=== PATIENT | male | born 1950 | race Caucasian/White ===

== ENCOUNTER 2016-09-04 | Outpatient (CLI) | END 2016-09-04 13:06 | disposition critical access hospital (66) | CPT/HCPCS: A0425; A0429 ==

== ENCOUNTER 2016-09-04 13:22 | Emergency (ER) | payer MEDICARE, OTHER | END 2016-09-04 15:42 | disposition home or self-care (01) | DX: R56.9 Unspecified convulsions (principal); R55 Syncope and collapse; J18.9 Pneumonia, unspecified organism; C61 Malignant neoplasm of prostate; I35.0 Nonrheumatic aortic (valve) stenosis; I48.91 Unspecified atrial fibrillation; Z79.01 Long term (current) use of anticoagulants; I10 Essential (primary) hypertension; I25.10 Atherosclerotic heart disease of native coronary artery without angina pectoris; I25.2 Old myocardial infarction; E11.51 Type 2 diabetes mellitus with diabetic peripheral angiopathy without gangrene; Z79.4 Long term (current) use of insulin; Z86.73 Personal history of transient ischemic attack (TIA), and cerebral infarction without residual deficits; Z85.828 Personal history of other malignant neoplasm of skin; Z87.891 Personal history of nicotine dependence ==

== ENCOUNTER 2016-09-12 11:40 | Outpatient (CLI) | payer MEDICARE, OTHER ==
--- NOTE | 2016-09-14 20:03 | CONSULTATION NOTE ---
DATE OF CONSULTATION: 09/12/2016 00:00:00 REQUESTING PROVIDER: Dr. Al Mensah TIME OF VISIT 11:45-1300 TOPIC: Initial palliative care consult. Thank you, Dr. Mensah, for asking palliative care consult service to be involved in the care of your p atient. I am asked to provide support for pain management, and the patient is interested in advanced care planning. BRIEF HISTORY OF PRESENT ILLNESS: This is a 66-year-old gentleman who has multiple comorbidities that affect his overall health. Most recently, he was diagnosed with metastatic prostate cancer with righ t external iliac adenopathy at 3.8 cm in size. He is currently on primary androgen suppression with t he first dose of Lupron in the fall. He is being seen by Radiation Oncology and is scheduled to have his mapping done on Thursday. Because of his large size and stature, he has to go to [facility] to have that CT scan and MRI, as well will get followup labs. The current plan is for 9 weeks of the rapy. In the context of his other comorbidities, he most recently was seen in the ER for suspected se izure activity. He is scheduled to follow up with a neurologist. There was mention of possible absenc e seizures and he also has had a history of TIAs, and most recently his aortic valve stenosis has wor sened. He is scheduled to have followup on that at some point after he finished his prostate cancer t reatment. Depending on his expected prognosis, he will either do a valve replacement or some kind of stent, per his understanding. I have been asked to see him about his pain. His pain is fairly severe. He has pretty extensive back pain. He has had chronic lower back pain. An MRI on the neck in 11/2015, showed spondylosis and sal inal stenosis without metastatic disease. He had a lumbar CT scan with contrast in October with no m etastatic disease, but does have severe DJD and most recently he had a bone scan that did not show an y obvious metastatic disease but there was some poorly defined uptake at the lumbosacral junction. Th e patient has in the past for his chronic low back pain been on methadone. He does not have a true al lergy for this, he just feels like he was over medicated and had difficulty titrating off of this. Cu rrently his pain in his back has been escalating. At worst it is 8/10, sometimes at rest it is a 1/2. It is located in the base of the skull, his right shoulder, and the area between the mid thoracic ar ea down into his sacral area, bilateral hips, and bilateral knees as well as his left ankle. The itz ent, because of his concern regarding addiction, a recent bad experience with taking 2 Vicodin at onc e, and concern about respiratory depression, rarely takes more than 1 or 2 hydrocodone a day. He does perceive his suffering as somewhat high. It does keep him from ambulating for longer distances or pe riods of time. He does ambulate with a cane. It is difficult for him to get in a comfortable position . He also does have sharp shooting pains in his lower legs as well that are rapid and fleeting, but v alejandrina severe. His pain does tend to have an element of persistency, but also intermittent when exacerba nila by ambulating, standing and twisting. His other symptom burden is that he is experiencing extreme fatigue. He rates this at an 8/10. He is feeling tired most of the time. He does have some drowsiness with this, a 5/10. It does keep him from being able to do very much and most recently with his presumed seizure activity he is unable to driv e. He does have a low-grade nausea and some occasional shortness of breath of 3/10. He denies any dep ression or anxiety, and actually perceives his quality of life is fairly good. His other comorbidities include diabetes, episodic chest pain, hyperlipidemia, hypertension, nonobstr ucting left kidney stone, history of stroke with memory loss, history of DVT on Coumadin, hypertensio n, history of gout, history of melanoma, history of asthma, aortic stenosis, severe DJD. ALLERGIES INCLUDE: 1. HORNET VENOM. 2. PENICILLINS. 3. ZETIA. 4. CONTRAST DYE. 5. DEMEROL. 6. FENOFIBRATE. 7. LIPITOR. 8. METHADONE, RELATED TO ADDICTION. 9. NIACIN. 10. PERCOCET. 11. STATINS. 12. TAPE ADHESIVE. HOME MEDICATIONS Include: 1. Acetaminophen 325 mg tabs, 2 tabs in the morning and 2 tabs at night. 2. Albuterol 1.25 mg solution q.4h. p.r.n. 3. Proventil inhaler 1-2 puffs q.4h. p.r.n. 4. Allopurinol 100 mg daily. 5. Calcium carbonate/D3 one tab BID 6. EpiPen. 7. Toujeo, inject 60-80 units. 8. Vitamin B12, 3500 mcg daily. 9. Flovent 110 mcg daily. 10. Furosemide 40 mg daily. 11. Hydrocodone/acetaminophen 5/325 mg 1 q.4h. p.r.n. 12. Ipratropium/albuterol DuoNeb 0.5/3 mg p.r.n. 13. Ketaconazole 2% cream, 1 application topically p.r.n. 14. Cozaar 25 mg daily. 15. Metformin 850 mg p.o. t.i.d. 16. Methocarbamol 750 mg b.i.d. 17. Multivitamin daily. 18. Nitroglycerin 0.4 mg p.r.n. 19. Lansoprazole 30 mg related capsule daily. 20. Lupron shot every 13 weeks. 21. Potassium citrate controlled release tablet. 22. Tamsulosin 0.4 mg daily. 23. Warfarin daily, managed by his clinic. 24. Vitamin D 5000 capsule daily. 25. Antacid as needed. CODE STATUS: CURRENTLY THE PATIENT IS A FULL CODE. WE DID INITIATE CONVERSATION AROUND POLST. PLEASE SEE PALLIATIVE CARE CONVERSATION. BRIEF SOCIAL HISTORY: The patient is to Danielle. 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 He likes to fish and rocha. Is quite disappoi nted with his correction of this new diagnosis and his limitation of back pain. He is feeling quite v ulnerable given his new diagnosis and all his medical health problems. Marital status: . Use o f alcohol rarely. Smoked previously, but quit in 1970. Has not smoked cigarettes, but smoked a pipe. FAMILY HISTORY: His father at 66 of lung cancer. His mother at 60 of breast cancer, was leyda ated for greater than a decade. He has 1 sibling, does not know his current healthcare status. He hopkins s have a daughter and a son. PERFORMANCE STATUS: The patient currently just recently had to give up driving because of his neurolo gic event. He is ambulating with a cane. He is limited by fatigue and pain in most activities. He is able to attend to his own ADLs. He does have short-term memory issues and needs constant cueing and n ote taking to remain on track. He is quite bright and verbal, alert and oriented x3, and very engaged in his healthcare and decision making. REVIEW OF SYSTEMS CONSTITUTIONAL: The patient does report night sweats, fever and chills, severe fatigue, and constant headache. EYES: He wears glasses and has glaucoma. ENT: He does experience hearing loss, bleeding gums, bad breath or bad taste, and swollen glands in h is neck. CARDIOVASCULAR: He reports heart trouble and chest pains. Has had some irregular beats. He does have intermittent swelling in his feet, ankles and hands. RESPIRATORY: Does experience shortness of breath. GASTROINTESTINAL: He has new increasing stomach pain. He is having frequent diarrhea, which is 6-8 ep isodes a day. He is unable to identify the cause though this has been somewhat long-term. GENITOURINA RY: He does have a history of kidney stones and has had some trouble urinating. He is on Flomax with quite a bit of frequency. MUSCULOSKELETAL: Reports joint pain, joint stiffness, some weakness, ongoing muscle pain and cramps, as well as difficulty in walking. SKIN: He does have rash and varicose veins. NEUROLOGIC: He has been having frequent and recurring headaches. He is to be worked up with the neuro logist for new symptoms of lightheadedness and being dizzy. He has a history of a stroke with residua l memory problems, per his records. PSYCHIATRIC: The memory loss is new for him. He has had sleep problems. ENDOCRINE: He has recently developed excessive thirst and urination, and cold intolerance. PHYSICAL EXAMINATION GENERAL APPEARANCE: He is quite large, he reports he has lost 55 pounds mostly on purpose over the year. He was at 305, and is down to 250. EYES: Slightly watery on inspection. ENT: His mucous membranes are moist. NECK: He has quite thickened stature. His trachea is midline with some swelling up just under his man dible. LUNGS: Breath sounds diminished throughout. No crackles, wheezing, or rhonchi noted. CARDIOVASCULAR: His pulse is 83. Blood pressure 136/96, respiratory rate is about 22. ABDOMEN: He has central obesity, quite round and taut. SKIN: His color is slightly pale. EXTREMITIES: He is walking with a cane. He does present with pain behaviors with any kind of shifting or turning. He did have some intermittent sharp, shooting pains that look like spasms during our vis it. PALLIATIVE CARE DISCUSSION/WHO IS PRESENT: Myself, Danielle, and the patient. The patient really wanted to talk about advanced care planning, what that was like being a do not attempt resuscitation. From h is experiences as a firepot operator and tender, he is aware of what a POLST is but not the implications regarding his current healthcare status. We did spend quite a bit of time explaining various implications conversa tion regarding this. He does want his , Danielle, to be his durable power of health environmental attorney. He exp ressed some concern regarding his daughter, Danielle, who is a EMT and being able to follow his wishes, particularly as he makes choices to focus on quality of life and considering a no code status. We did discuss as far as thresholds what defined quality of life for him as he is quite impacted currently. If he were unable to be independent or ambulatory, he is worried about being an increased burden on his in the context of how much is too much and weighing benefits and burdens of all the decision s that are coming forward for him with his multiple comorbidities. He does recognize if he were to be come more debilitated that this would be extremely difficult. He is definite no permanent dialysis. Edward hurtado herself has health problems as well and there would be concerns as far as her being able to phys ically manage him, even at his 250 pounds. He does report his daughter and her boyfriend live [facility] and have intermittent visits from their step-grandchild does bring him quite a bit of garfield and supp ort. He does express some grief and loss with his recent correction and unable to be healthy and well enough to enjoy activities that they were looking forward to. I did provide them with several tools to go home and facilitate discussions. He remains quite concerned about the roller coaster of ups and downs, as well as his health. He is concerned, rightfully so, in the future as far as his tolerating treatment and further side effects that may further debilitate him. IMPRESSION: This is a 66-year-old gentleman with metastatic prostate cancer about to embark on a fair ly lengthy course of radiation therapy. In the context of all his other comorbidities including his n ewly diagnosed aortic stenosis needing some kind of intervention as well as his diabetes, he remains at high risk for sequelae of side effects. Concern about his escalating back pain is impacting furthe r his quality of life. 1. Back pain. I did spend quite a bit of time in counseling regarding pain management. The patient's quality of life is significantly impacted by his pain. His feels like he does do better when he is taking the pain pills, but has quite a bit of resistance because he had some difficulty with metha done and addiction in the past and, in fact, losing even some memories regarding that. He is not nece ssarily allergic to methadone, he is just concerned. I suspect this would be probably the better drug for him given the neuropathic component of his pain, but currently he is opioid niave and he says he is only using 1-2 hydrocodone at the most and Tylenol through the day. We did discuss his taking bab y steps and starting with just half tab of his hydrocodone scheduled 4 times a day and will titrate u p from there. He was in agreement with this plan. I did provide him a prescription with enough to tit rate up to a full tab, so 120 tabs. We did review opioid safety and the need to lock it up in the con text of concerns. 2. Fatigue. I suspect this is multifactorial in origin. I did discuss that pain can certainly add to the fatigue, and he does have diabetes. It looks like his last glycosylated hemoglobin was actually f airly high. He is working on weight loss, trying to increase his activity but this again is impacted by his pain. He is having difficulty with sleeping. Will continue for different interventions as we m ove along in our meetings. 3. Advanced care planning. Did spend quite a bit of time in processing his grief regarding his new di agnosis, his concerns about the future and the implications regarding his health. I did provide him a copy of a POLST, [employer], and Conversation Project to assist with that conversation. He very muc h wants to get these things lined up and says that if he were to be hospitalized again that his wishe s would be followed. 4. Diarrhea. The patient is unable to attribute this to any single cause. He has had it intermission coordinator. I am concerned in that he will be getting radiation and he already has underlying diarrhea. Unclear if this is gastroparesis. Will have him add some Metamucil to slow down the transit and to get some Imod ium. I suspect they are going to need some ongoing active support for symptom management treatment. Thank you, Dr. Mensah, for asking the palliative care consult service to be involved in the care of yo ur patient. I will continue to provide ongoing support. He is, of course, going to be starting radiat ion and we will temper that accordingly and titrate his pain medications up given his concerns. Seventy-five minutes spent with greater than 50% spent in counseling regarding advanced care planning , pain management, processing grief and loss and anticipatory guidance. JOB #: [id number] EXT JOB #:[id number]
== END 2016-09-12 11:41 | disposition home or self-care (01) ==
LOC: PC 11:40
PROVIDERS: ATTEND Nurse Practitioner Adult Health
DX: C61 Malignant neoplasm of prostate (principal); R59.9 Enlarged lymph nodes, unspecified; G45.9 Transient cerebral ischemic attack, unspecified; M54.5 Low back pain; M47.9 Spondylosis, unspecified; M51.36 Other intervertebral disc degeneration, lumbar region; M25.511 Pain in right shoulder; M25.552 Pain in left hip; M25.551 Pain in right hip; M25.562 Pain in left knee; M25.561 Pain in right knee; M25.572 Pain in left ankle and joints of left foot; R11.0 Nausea; R06.02 Shortness of breath; E11.8 Type 2 diabetes mellitus with unspecified complications; Z79.4 Long term (current) use of insulin; E78.5 Hyperlipidemia, unspecified; I10 Essential (primary) hypertension; N20.0 Calculus of kidney; Z87.442 Personal history of urinary calculi; Z86.718 Personal history of other venous thrombosis and embolism; M10.9 Gout, unspecified; Z85.820 Personal history of malignant melanoma of skin; J45.909 Unspecified asthma, uncomplicated; I35.0 Nonrheumatic aortic (valve) stenosis; M19.90 Unspecified osteoarthritis, unspecified site; Z87.891 Personal history of nicotine dependence; R61 Generalized hyperhidrosis; R50.9 Fever, unspecified; R51 Headache; H91.93 Unspecified hearing loss, bilateral; R58 Hemorrhage, not elsewhere classified; R60.1 Generalized edema; R41.3 Other amnesia; E66.9 Obesity, unspecified; Z51.5 Encounter for palliative care
CPT/HCPCS: 99205

== ENCOUNTER 2016-09-17 | Outpatient (CLI) | payer MEDICARE, OTHER | END 2016-09-17 15:32 | disposition home or self-care (01) ==

== ENCOUNTER 2016-11-06 16:26 | Outpatient (CLI) | payer MEDICARE, OTHER | END 2016-11-06 16:27 | disposition home or self-care (01) | DX: Z79.899 Other long term (current) drug therapy (principal) ==

== ENCOUNTER 2016-11-20 15:00 | Outpatient (CLI) | payer MEDICARE, OTHER | END 2016-11-20 15:01 | disposition home or self-care (01) | DX: Z51.5 Encounter for palliative care (principal); R19.7 Diarrhea, unspecified; E87.6 Hypokalemia; G89.29 Other chronic pain; M54.9 Dorsalgia, unspecified; M47.9 Spondylosis, unspecified; M48.00 Spinal stenosis, site unspecified; M19.90 Unspecified osteoarthritis, unspecified site; R11.0 Nausea; R53.83 Other fatigue; F32.9 Major depressive disorder, single episode, unspecified; C61 Malignant neoplasm of prostate; C79.9 Secondary malignant neoplasm of unspecified site; N41.9 Inflammatory disease of prostate, unspecified; R35.0 Frequency of micturition; E11.9 Type 2 diabetes mellitus without complications; E66.9 Obesity, unspecified; N30.40 Irradiation cystitis without hematuria; Z79.891 Long term (current) use of opiate analgesic; Z66 Do not resuscitate ==

== ENCOUNTER 2016-11-28 10:31 | Outpatient (CLI) | payer MEDICARE, OTHER | END 2016-11-28 10:32 | disposition home or self-care (01) | DX: G40.109 Localization-related (focal) (partial) symptomatic epilepsy and epileptic syndromes with simple partial seizures, not intractable, without status epilepticus (principal) ==

== ENCOUNTER 2016-11-28 15:39 | Outpatient (CLI) | payer MEDICARE, OTHER | END 2016-11-28 15:40 | disposition home or self-care (01) | DX: Z51.5 Encounter for palliative care (principal); R19.7 Diarrhea, unspecified; E87.6 Hypokalemia; G89.29 Other chronic pain; M54.9 Dorsalgia, unspecified; R26.2 Difficulty in walking, not elsewhere classified; R53.83 Other fatigue; F32.9 Major depressive disorder, single episode, unspecified; C61 Malignant neoplasm of prostate; C79.9 Secondary malignant neoplasm of unspecified site; N30.40 Irradiation cystitis without hematuria; N41.8 Other inflammatory diseases of prostate; Z79.891 Long term (current) use of opiate analgesic; H40.9 Unspecified glaucoma; E66.9 Obesity, unspecified; Z66 Do not resuscitate ==

== ENCOUNTER 2016-12-11 11:02 | Emergency (ER) | payer MEDICARE, OTHER | END 2016-12-11 14:12 | disposition home or self-care (01) | DX: R41.82 Altered mental status, unspecified (principal); Z66 Do not resuscitate; C79.82 Secondary malignant neoplasm of genital organs; Z85.828 Personal history of other malignant neoplasm of skin; N20.0 Calculus of kidney; Z87.442 Personal history of urinary calculi; I45.2 Bifascicular block; I48.91 Unspecified atrial fibrillation; Z79.01 Long term (current) use of anticoagulants; I25.2 Old myocardial infarction; Z86.73 Personal history of transient ischemic attack (TIA), and cerebral infarction without residual deficits; I10 Essential (primary) hypertension; E11.9 Type 2 diabetes mellitus without complications; Z79.4 Long term (current) use of insulin; Z79.84 Long term (current) use of oral hypoglycemic drugs; E78.00 Pure hypercholesterolemia, unspecified; I25.10 Atherosclerotic heart disease of native coronary artery without angina pectoris; K21.9 Gastro-esophageal reflux disease without esophagitis; M19.90 Unspecified osteoarthritis, unspecified site; M10.9 Gout, unspecified; Z87.891 Personal history of nicotine dependence ==

== ENCOUNTER 2016-12-18 15:15 | Outpatient (CLI) | payer MEDICARE, OTHER | END 2016-12-18 23:59 | DX: Z51.5 Encounter for palliative care (principal); K52.0 Gastroenteritis and colitis due to radiation; Y84.2 Radiological procedure and radiotherapy as the cause of abnormal reaction of the patient, or of later complication, without mention of misadventure at the time of the procedure; E87.6 Hypokalemia; G89.29 Other chronic pain; M54.9 Dorsalgia, unspecified; R53.83 Other fatigue; F32.9 Major depressive disorder, single episode, unspecified; E11.9 Type 2 diabetes mellitus without complications; C61 Malignant neoplasm of prostate; C79.9 Secondary malignant neoplasm of unspecified site; M19.90 Unspecified osteoarthritis, unspecified site; Z66 Do not resuscitate ==

== ENCOUNTER 2017-01-15 14:04 | Outpatient (CLI) | payer MEDICARE, OTHER ==
--- NOTE | 2017-01-17 09:35 | CONSULTATION NOTE ---
DATE OF CONSULTATION: 01/15/2017 00:00:00 REQUESTING PROVIDER: Al Mensah MD. TIME OF VISIT 14:15-15:00. TOPIC: Followup palliative care consult. Thank you, Dr. Mensah, for asking the palliative care consult service to be involved in the care of yo ur patient. I am asked to provide support for pain and symptom management. BRIEF HISTORY OF PRESENT ILLNESS: This is a delightful 66-year-old gentleman who has multiple comorbi dities including but not limited to metastatic prostate cancer who recently finished up his radiation and is continuing on Lupron since 05/2016. His PSA has had a good response, it is at 0.020 mg/mL, fr ee PSA is 0.010 mg/mL and percent of PSA calculated is 50%. He had had fairly significant toxicities with his radiation therapy and had finally settled down to having regular bowel movements that were d own to a couple times a day and firm. Unfortunately, with the Lupron shot, has increased again to joel rrhea and has needed to restart the Lomotil. His frequent stools are now about 3-6 times a day and va riable, but is expecting improvement. His other presenting symptom is his back pain. This is improvin g as well. He is on methocarbamol 750 mg he is taking 1-2 b.i.d. and is starting to back off, as well as he is down to 1-2 hydrocodone as needed. Most of the back pain is lumbar and spasmatic in nature. Overall, his symptomatology, despite his little spike with the Lupron which also resulted in some fa tigue, has been doing pretty well. Of concern is he has a seizure disorder. He has been followed by Dr. Resendiz and is on lamotrigine. He has noted though some "episodes" lasting anywhere from 5 to 10 minutes where he gets increasingly co nfused and takes awhile to reorient. He does have to sit down and re-center with that. 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 They are scheduled to see his neurologist on 01/27/2017 and I did instruct his to keep track of these ep isodes or if they become more significant to follow up sooner. Along with all his other comorbidities, cardiac, respiratory, and diabetes. He is going to be seeing the fire fighter on 01/10/2017 for concerns of increased pronouncement of his murmur. He has seen Dr. Mcgill for management of his diabetes. He just recently had an A1c done today which was 6.5%. He has been actually running on the lower side. His current weight is 247.4, he is staying somewhat weight n eutral, starting to eat and drink a little bit more regularly, but still struggles with fatigue. CODE STATUS: HE IS A DO NOT ATTEMPT RESUSCITATION, HAS A POLST WITH LIMITED INTERVENTIONS, DETERMINE USE OR LIMITATION OF ANTIBIOTICS WHEN INFECTION OCCURS WITH COMFORT THE GOAL AND NO MEDICALLY ASSI STED NUTRITION. 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 BRIEF SOCIAL HISTORY: The patient and his have been for over 45 years. She herself has s ome chronic health issues. They have been very much involved in the medical community and not much ti me to branch out and develop community support. Patient is looking forward to restarting attendance a [employer] and looking at other ways to focus on something besides his current health status. PERFORMANCE STATUS: The patient is ambulating with his cane. He continues to work in his garden and o n his projects. He hates to be down, he kind of works through the pain. I would put him at a [facility] performance status at about 60%. REVIEW OF SYSTEMS: CONSTITUTIONAL: He did have an episode of fatigue after his Lupron shot. He is feeling somewhat nemesio r. He did have a rule out on his renal nodule with Dr. Mensah. 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 He continues to followup with his specialist in try ing to find some balance with his ongoing chronic health issues. EYES: He does report some changes in vision with some floaters in his left eye, some itchiness and wa teriness with allergies. He has not had an eye check for a couple years. I did encourage him to rachid vinson with an appointment given his longstanding diabetes. NECK: He has had some lymphadenopathy in his neck, this continues to improve. CARDIOVASCULAR: Denies chest pain. GI: As above. GENITOURINARY: He does have some early symptoms of retention and difficulty starting a stream. This i s quite complex for him and also has kept him from taking his second Lasix. He did just see the urolo gist, he is on Flomax. I did encourage him to followup with his urologist if he has any further quest ions. There are other medications to add for urinary retention symptoms. MUSCULOSKELETAL: He has overall degenerative joint disease in multiple joints. He is quite stiff and lots of aches and pains. He also has a history of back surgery and pain. He has worked with physical therapy before in the past and would like to reinstate this. INTEGUMENTARY: His skin is quite dry and no further perianal issues. NEUROLOGIC: He is having baseline memory problems, is quite forgetful, as noted above he has had some intermittent confusion. These do seem somewhat specific and episodic in nature, as well as some base line intermittent memory issues as well. PSYCHIATRIC: He is feeling somewhat anxious but encouraged as he is coming out of his aggressive masood tment regimen. ENDOCRINE: At this point in time he is back on his insulin of 60-70 units of the Toujeo, as well as h is metformin. He reports his blood sugars have been in a good range. This would be confirmed by his A 1c. PHYSICAL EXAMINATION: GENERAL: The patient does appear with central obesity, his face is somewhat flushed. He does have romeo e kyphosis. Eyes watery and slightly reddened on appearance. ENT: Mucous membranes are moist. NECK: Trachea midline. LUNGS: Breath sounds are clear, but diminished. CARDIOVASCULAR: His pulse was 89, O2 saturations on room air at 95%, blood pressure 140/79. Of note, he has forgotten to take his Cozaar for almost a month. His blood pressures have been running a littl e bit higher. He has restarted on this. ABDOMEN: Quite rounded and taut, hyperactive bowel tones. SKIN: His color is somewhat flushed. EXTREMITIES: He does have some lower extremity edema. He is supposed to be on 40 mg of Lasix b.i.d. a nd is currently only taking one. ALLERGIES: 1. BEES STINGS. 2. PENICILLIN. 3. ZYTIGA. 4. CONTRAST DYE. 5. DEMEROL. 6. LIPITOR. 7. METHADONE. 8. NIACIN. 9. PRAVASTATIN. 10. TAPE. CURRENT MEDICATION LIST: WE REVIEWED: 1. Albuterol HFA 108 mcg actuation inhalation 1-2 puffs q.6 hours. 2. Allopurinol 100 mg tablet daily. 3. EpiPen. 4. Toujeo 60-70 units daily. 5. Fluticasone propionate 110 mcg inhalation as needed. 6. Furosemide 40 mg 1 tab b.i.d.. 7. Lupron shot every 13 weeks. 8. Hydrocodone/acetaminophen 5/325 mg tabs 1-2 tabs every 4 hours as needed. 9. Ipratropium Albuterol 0.5 to 3 mL inhalation solution as needed. 10. Ketaconazole 2% cream p.r.n. to face as needed. 11. Losartan 50 mg daily. 12. Metformin 850 mg t.i.d. 13. Methocarbamol 750 mg tabs 1-2 b.i.d.. 14. Nitrostat 0.4 mg sublingual. 15. Potassium 10 meq. 3 tabs daily. 16. Tamsulosin 0.4 mg capsule. 17. Warfarin titrated by his primary care. 18. Ondansetron 4 mg ODT 1 q.6h. p.r.n. nausea. 19. Lomotil 2.5 mg tabs 1-2 tabs every 4 hours, not to exceed 8 tablets in 24 hours. 20. Lamotrigine 100 mg 2 times a day. PALLIATIVE CARE DISCUSSION/WHO IS PRESENT: Myself, the patient, and his , Danielle. We did discuss m vadiming forward as far as survivorship issues. He has had long-term chronic pain and now feels somewhat deconditioned. We did discuss implementing physical therapy for his chronic pain as well as conditio byron. We did contact his previous physical therapist that he has worked with before. I will send a fa x on to them for services. He does have multiple other comorbidities beside his prostate cancer and c ontinues to have multiple medical appointments. He does have a fairly pragmatic approach, though he i s getting much more frustrated with his memory issues, as well. He is hoping for a period of time whe n his symptoms are improved and he can enjoy improved quality of life. IMPRESSION: This is a 66-year-old gentleman with metastatic prostate cancer with multiple other comor bidities. He is coming off his acute treatment and is improved as far as his symptom burden. He has o ngoing chronic health problems and multiple specialists. I am concerned about his neurologic baseline . He has a followup with the neurologist at the end of the month. RECOMMENDATIONS/COUNSELING DONE: 1. Diarrhea, now secondary to Lupron injection. He is using the Lomotil appropriately. This should be improving over the next week or two. He did not add Metamucil or probiotics as instructed to prosper vaughn, but he is returning to his previous diet patterns. 2. Chronic back pain. He is able to titrate back on his methocarbamol, as well as his hydrocodone. He has both tools to continue to use, with his fluctuating pain status we will transition and prescribe physical therapy for support. 3. Fatigue. This is multifactorial in origin. He is starting to return back to some previous level of activity. This should be improved also by Physical Therapy, as well as encouraged him to branch out as far as returning to spiritual community and taking more time outside of medical appointments. 4. Diabetic management. He is working with Dr. Mcgill to titrate his diabetic medications. He has some followup with him in the next week. 5. Seasonal allergies. I did instruct him to use allergy relief Visine, if this did not improve his i rritation or conjunctivitis, he needs to followup either with his primary or an mechanical technician. I di d instruct him, though, to make an appointment given that he is a diabetic and probably does need fol lowup secondary to his high risk for retinopathy. 6. Advanced care planning. The patient is currently done with treatment, moving into morbid survivors hip mode. We did agree unless he has an exacerbation of his symptoms that we will just continue our r elationship as needed. He is certainly at high risk for the sequela of many of his different comorbid ities and is aware that his health, though improved, is still quite fragile in status overall. TIME SPENT: Forty-five minutes with greater than 50% of this done in counseling and coordination of c are, instruction to the as far as tracking episodes of confusion. If these do increase or seem m ore concerning, he is to followup sooner with the neurologist, but in the meantime, they will collect information to assist them in planning in the future. Thank you, Dr. Mensah, for asking the palliative care consult service to be involved in the care of yo ur patient. I will transition him to just as needed visits as his symptom burden is improving. JOB #: [id number] EXT JOB #:[id number]
== END 2017-01-15 14:05 | disposition home or self-care (01) ==
LOC: PC 14:04
PROVIDERS: ATTEND Nurse Practitioner Adult Health
DX: Z51.5 Encounter for palliative care (principal); R19.7 Diarrhea, unspecified; M54.9 Dorsalgia, unspecified; R53.83 Other fatigue; E11.9 Type 2 diabetes mellitus without complications; J30.2 Other seasonal allergic rhinitis; C61 Malignant neoplasm of prostate; G40.909 Epilepsy, unspecified, not intractable, without status epilepticus; R01.1 Cardiac murmur, unspecified; Z66 Do not resuscitate; H43.392 Other vitreous opacities, left eye; R33.9 Retention of urine, unspecified; M15.9 Polyosteoarthritis, unspecified; Z79.01 Long term (current) use of anticoagulants; Z79.4 Long term (current) use of insulin; Z79.51 Long term (current) use of inhaled steroids; R60.9 Edema, unspecified
CPT/HCPCS: 99215

== ENCOUNTER 2017-01-15 15:11 | Outpatient (CLI) | payer MEDICARE, OTHER | END 2017-01-15 15:12 | disposition home or self-care (01) | DX: G40.109 Localization-related (focal) (partial) symptomatic epilepsy and epileptic syndromes with simple partial seizures, not intractable, without status epilepticus (principal); E11.9 Type 2 diabetes mellitus without complications ==

== ENCOUNTER 2017-02-27 14:01 | Outpatient (CLI) | payer MEDICARE, OTHER | END 2017-02-27 14:02 | disposition home or self-care (01) | LOC: LAB 14:01 | PROVIDERS: ATTEND Specialist | DX: G40.109 Localization-related (focal) (partial) symptomatic epilepsy and epileptic syndromes with simple partial seizures, not intractable, without status epilepticus (principal) | CPT/HCPCS: 36415; 80175 ==

== ENCOUNTER 2017-04-16 09:00 | Outpatient (CLI) | payer MEDICARE, OTHER ==
[2017-04-16 14:17] LABS: BILIRUBIN,URINE NEGATIVE (NEGATIVE); PH,URINE 5.5 PH (5.0-7.5)
[2017-04-16 14:21] LABS: UA w/ MICROSCOPIC CHARGE YES
[2017-04-16 14:33] LABS: WBC,URINE 0-3 /HPF (0-3)
[2017-04-16 14:34] LABS: UR CULTURE IF IND NOT INDICATED
== END 2017-04-16 09:01 | disposition home or self-care (01) ==
LOC: LAB.R 09:00
PROVIDERS: ATTEND Nurse Practitioner Adult Health
DX: R31.9 Hematuria, unspecified (principal)
CPT/HCPCS: 81001; 81003; 87086

== ENCOUNTER 2017-04-16 13:07 | Outpatient (CLI) | payer MEDICARE, OTHER ==
--- NOTE | 2017-04-16 21:54 | PROVIDER PROGRESS NOTE ---
Palliative Care Follow Up - Referral Referring Provider: Dr. Al Mensah Time of Visit: 2960-6320 Referral setting: [facility] Referral Reason: Prostate Cancer - Information Sources Records Reviewed: Old records reviewed History obtained from: Patient, Family () Exam limitations: Clinical condition (patient with increasing memory problems) - History of Present Illness Update Brief HPI Update: This is a 66 year old gentleman who has multiple co-morbidities including met. prostate cancer post radiation, now on Lupron. He had significant toxicities as a result, still some residual diarrhea, though not needing the lomotil, and found improved as dropped his night time metformin. He had another fall 02/14, resulting in ankle injury and back pain. Currently the back pain, mostly lower lumbar is not improved, and in his estimation is worsening. He has severe spasms up to 8 times a day, his gait is quite limited relating to the pain, using the walker at all times, had been intermittent and for long distances. Is using the methocarbamol 750 mg 2-4 tabs in 24 hours, and about 2 tabs total of the vicodin. Has had more trouble tolerating ADLs showering, walking, and more difficulty with sleep and fatigue. He recently start citalorpram by PCP Dr. Mcgill for what patient describes as "panic attacks". Reports he had a "phasing out" episode this morning, and his left headache/head feels like mush. Feels like it is resolved at the time of visit. Has been actively bleeding in the last few months when urinating, some discomfort, confirms toilet "red", patient reports not all of the time. Patient reports more heartburn, stopped omeprazole somewhere along the way, and remains poor historian regarding medications. Despite strong recommendations the assist with management/ mediset has not complied. Unclear about medication adherence, patient admits his memory and cognition is worsening, this is confirmed by . Social History - Living Situation Living arrangement: At home Living Situation: With spouse/s.o., With family (daughter recently moved home, and expecting in May) Medications/Allergies - Medications Home Medications: Ambulatory Orders Medication Instructions Recorded Confirmed Allopurinol 100 mg PO DAILY 07/28/16 04/19/17 Blood Sugar Diagnostic [Glucometer 1 each MC DAILY 07/28/16 04/13/17 Strips] Epinephrine 0.3 mg INJ ONCE PRN 07/28/16 04/19/17 Furosemide 40 mg PO DAILY 07/28/16 04/19/17 Hydrocodone/Acetaminophen 5 - 325 mg PO Q4H PRN 07/28/16 04/19/17 [Hydrocodone-APAP 5-300] Methocarbamol 750 mg PO BID PRN 07/28/16 04/19/17 Nitroglycerin 0.4 mg SL ONCE PRN 07/28/16 04/19/17 Tamsulosin [Flomax] 0.4 mg PO DAILY 07/28/16 04/19/17 Warfarin [Coumadin] 10 mg PO DAILY 07/28/16 04/19/17 metFORMIN [Glucophage] 850 mg PO BID 07/28/16 04/19/17 Diphenoxylate/Atropine [Lomotil] 1 - 2 each PO ONCE PRN 12/11/16 04/19/17 Lansoprazole [Prevacid] 30 mg PO DAILY 12/11/16 04/19/17 Losartan Potassium 50 mg PO DAILY 12/11/16 04/19/17 Ondansetron [Ondansetron Odt] 4 mg PO Q6H PRN 12/11/16 04/19/17 lamoTRIgine [LaMICtal] 200 mg PO BID 12/11/16 04/19/17 Escitalopram [Lexapro] 10 mg PO DAILY 04/19/17 04/19/17 Insulin Glargine,Hum.rec.anlog 60 - 80 unit INJ DAILY 04/19/17 04/19/17 [Toujeo Solostar] Potassium Chloride [Klor-Con M20] 20 meq PO TID 04/19/17 04/19/17 - Allergies Allergies/Adverse Reactions: Allergies Allergy/AdvReac Type Severity Reaction Status Date / Time atorvastatin calcium * Allergy Hallucinati Verified 08/08/15 19:22 [From Lipitor] ons ezetimibe [From Zetia] Allergy Respiratory Verified 08/08/15 19:22 Iodinated Contrast- Oral and Allergy Hives Verified 08/08/15 19:22 IV Dye [Iodinated Contrast Media - IV Dye] niacin Allergy Rash Verified 08/08/15 19:22 Penicillins Allergy Respiratory Verified 08/08/15 19:22 Tihvdol-Rhp-Ovb Reductase Allergy Unknown Verified 08/08/15 19:22 Inhibitor venom-honey bee Allergy Respiratory Verified 08/08/15 19:22 [bee venom (honey bee)] Review of Systems - Constitutional Constitutional: reports: Fatigue, Night sweats. denies: Fever, Chills - Eyes Eyes: reports: Vision loss - Ears, Nose & Throat Ears, Nose & Throat: reports: Hearing loss - Cardiovascular Cariovascular: reports: Exertional dyspnea, Decr. exercise tolerance - Respiratory Respiratory: reports: SOB with exertion - Gastrointestinal Gastrointestinal: reports: Diarrhea (improved after stopped the metformin at night; going 2-3 times a day loose but not needing lomotil) - Genitourinary Genitourinary: reports: Dysuria ( reports odor is strong;), Frequency, Urgency, Hematuria (reports now for almost a month; intermittent but more so enough to make toilet bowel red), Incontinence - Musculoskeletal Musculoskeletal: reports: Muscle pain, Back pain, Muscle aches, Limited range of motion, Muscle weakness, Other (reports fall a few weeks ago has had worsening back pain and spasms despite pain medication) - Integumentary Integumentary: reports: Dryness - Neurological Neurological: reports: General weakness, Headache, Dizziness, Memory problems ( worsening STM; intermittent confusion), Abnormal gait (using walker), Seizures ( reports am had "brain mush"; told by PCP having panic attacks), Incoordination - Psychiatric Psychiatric: reports: Depression (improved on Celexa), Anxiety - Endocrine Endocrine: reports: Intolerance to heat (hot flashes with Lupron shot), Other ( diabetes: blood sugars running 120-150;) - Hematologic/Lymphatic Hematologic/Lymphatic: reports: Anemia - All Other Systems All Other Systems: reports: Reviewed and negative Physical Examination - Vital Signs Pulse Rate: 83 Respiratory Rate: 20 O2 Saturation: 94 Blood Pressure: 123/79 - Physical Exam General Appearance: positive: Mild distress, Lethargic Eyes Bilateral: positive: Normal inspection ENT: positive: No signs of dehydration Neck: positive: No JVD, Trachea midline, Stiff neck Respiratory: positive: Other (diminished throughout) Cardiovascular: positive: Regular rate & rhythm, Systolic murmur Abdomen: positive: Tenderness, Guarding, Other (distended and taut norm; but tender midline and right upper quadrant with palpation) Skin: positive: Dryness, Other (face flushed) Extremities: positive: No pedal edema, Other (significant limitations; using walker with difficulty walking; presented with several severe spasms during visit lasting about 30-40 seconds) Neurologic/Psychiatric: positive: Oriented x3, Weakness, Sensory loss Palliative Care - POLST Patient has POLST: Yes POLST Status: DNR, Limited Interventions Pain: Pain worsening, Location (since fall back pain has been escalting, no improvement; having more spasms. Using 1/2 vicodin am/noon and 1 full one at night. Using flexeril QID) Drowsiness: Moderate (4-6) (very fatigued and drowsy, nods off to sleep easily) Nausea: None Anxiety: Mild (1-3) Dyspnea: Moderate (4-6) Anorexia: Mild (1-3) Insomnia: Sleeps well (recommended by Dr. Mensah to consider sleep study; patient admament would never where CPAP so not going to follow up) Constipation: No Feelings of wellbeing/Perceived Quality of Life: Worsening (impacted by STM/ cognitive changes and worsening fatigue. Acute on chronic back pain impacting QOL and functional status) Performance Status: Patient with functional decline, ambulating with walker related to pain/fatigue , less able to tolerate activity, increased problems with bathing. - Palliative Care Discussion: Surrogate decision maker-Danielle Gordon cell [phone], 2nd Rashaad Gordon . Patient still struggling with diminishing quality of life with both cognitive and functional decline. Had another fall resulting in injury and exacerbation of back pain. Continues to struggle with ongoing losses related to independence. Currently on lupron for met. prostate cancer, has multiple health problems that impact him day to day. Patient unable to attend to medication management, concern related to current adherence, list provided in note may not be accurate. Results - Lab Results Lab results reviewed: Yes Impression and Recommendations - Palliative Care Impression: This is a 67 year old gentleman with progressive cognitive and functional decline in the context of met. prostate cancer and multiple co-morbidities. Patient reports increased bleeing/symtpoms of dysuria, has f/u with PCP, will check labs (still on increased dose of K+, confirmed) and UA. Patient also presents with cont. or increasing back pain from fall in January, concerned it is not improving. Recommendations/Counseling Done: 1. Hematuria. UA obtain, remain high for occult blood, not no bacteremia. May have residual cystitis from radiation, is on coumadin. Will see PCP next week, will determine if needs f/u with urologist, CBC stable. Reassured patient. 2. Acute on chronic back pain. Using vicodin 1/2 tab am and noon, 1 at bedtime, dislikes taking more because of cognitive side effects. Using methocarbomal 750 mg 1-2 tabs BID, pain mostly spasmodic in nature. F/U with Dr. Mcgill regarding imaging recommended or needed. Patient to track pain/spasms, sees MD next week if worse will get xrays or appropriate scan, patient understands and in agreement. Counseling for use of walker and fall precautions, if significantly worsens before visit to go to ED. 3. Medication adherence. Patient cognition continues to decline. Spoke frankly with and patient need for accurate adherence and list for providers to know what is taking. Patient takes from bottles, unclear always about what taking, and makes independent decisions. has attempted to assist, has mediset available, patient does not always remember is taken pills or not. In agreement. 4. GERD. Patient does not think taking his Prevacid, will let me know if need new RX. Inst to restart for now. Has been using Gaviscon more freq. and having more abdominal discomfort "up high" 5. Hypokalemia. K 3.8, reports taking current K at TID, will leave for now, diarreaha improved. 6. Advanced care planning. POLST/DPOA in place, patient worried about ongoing health issues and decline. Found out on Lupron "for life". Counseling for normalizing current feelings as completing tx, and need for ongoing support. Time Spent: 60 minutes with greater than 50% done in counseling and coordination of care, addressing symptom management, medication adherence, an dfollow up on labs.
== END 2017-04-16 13:08 | disposition home or self-care (01) ==
LOC: PC 13:07
PROVIDERS: ATTEND Nurse Practitioner Adult Health
DX: Z51.5 Encounter for palliative care (principal); C61 Malignant neoplasm of prostate; C79.9 Secondary malignant neoplasm of unspecified site; R31.9 Hematuria, unspecified; G89.11 Acute pain due to trauma; M54.9 Dorsalgia, unspecified; K21.9 Gastro-esophageal reflux disease without esophagitis; E87.6 Hypokalemia; F32.9 Major depressive disorder, single episode, unspecified; F41.9 Anxiety disorder, unspecified; R41.81 Age-related cognitive decline; K52.1 Toxic gastroenteritis and colitis; T38.89 Poisoning by, adverse effect of and underdosing of other hormones and synthetic substitutes; Z91.81 History of falling; Z66 Do not resuscitate
CPT/HCPCS: 99215

== ENCOUNTER 2017-04-16 14:12 | Outpatient (CLI) | payer MEDICARE, OTHER ==
[2017-04-16 14:29] LABS: BASOPHILS % (AUTO) 0.7 %; EOSINOPHILS # (AUTO) 0.1 10^3/uL (0.0-0.7); EOSINOPHILS % (AUTO) 2.3 %; HCT - HEMATOCRIT 38.7 % (42.0-52.0); HGB - HEMOGLOBIN 12.9 g/dL (14.0-18.0); LYMPHOCYTES # (AUTO) 1.4 10^3/uL (1.5-3.5); LYMPHOCYTES % (AUTO) 24.9 %; MEAN CORPUSCULAR HEMOGLOBIN 28.7 pg (27.0-31.0); MEAN CORPUSCULAR HGB CONC 33.4 g/dL (32.0-36.0); MEAN CORPUSCULAR VOLUME 85.8 fL (80.0-94.0); MEAN PLATELET VOLUME 6.7 fL (7.4-11.4); MONOCYTES # (AUTO) 0.6 10^3/uL (0.0-1.0); MONOCYTES % (AUTO) 10.3 %; NEUTROPHILS # (AUTO) 3.5 10^3/uL (1.5-6.6); NEUTROPHILS % (AUTO) 61.8 %; RED BLOOD COUNT 4.51 10^6/uL (4.70-6.10); RED CELL DISTRIBUTION WIDTH 15.3 % (12.0-15.0); UNCORRECTED WHITE BLOOD COUNT 5.6 x10^3/uL; WHITE BLOOD COUNT 5.6 x10^3/uL (4.8-10.8)
[2017-04-16 14:44] LABS: CALCIUM 10.2 mg/dL (8.5-10.3); CREATININE 0.9 mg/dL (0.6-1.2); POTASSIUM 3.8 mmol/L (3.5-5.0)
== END 2017-04-16 14:13 | disposition home or self-care (01) ==
LOC: LAB 14:12
PROVIDERS: ATTEND Nurse Practitioner Adult Health
DX: E78.6 Lipoprotein deficiency (principal)
CPT/HCPCS: 36415; 80048; 81001; 81003; 85025; 87086

== ENCOUNTER 2017-04-27 11:38 | Emergency (ER) | payer MEDICARE, OTHER ==
[2017-04-27] MEDS ORDERED: SODIUM CHLORIDE 0.9% 1,000 ML IV ONE (12:07)
--- NOTE | 2017-04-27 12:10 | ED Physician Documentation ---
PD HPI Fall - Stated complaint Stated Complaint: HEAD INJ/ BACK INJ - Chief complaint Chief Complaint: General - History obtained from History obtained from: Patient, Family - History of Present Illness Mechanism of injury: Unknown Fall distance: Standing position Where injury occurred: Home Timing - onset: Today Injury(ies) location: Head, Neck, Right Upper Extremity, Right Lower Extremity Quality of pain: Pain Associated symptoms: Amnesia, Neck pain. No: Seizures, Ear drainage, Nasal drainage, Weakness, Paresthesias, Dyspnea, Nausea / vomiting Symptoms improve with: Rest Worsens with: Movement, Palpation Contributing factors: Anticoagulated Similar symptoms before: Has not had sx before Recently seen: Not recently seen - Additional information Additional information: 67-year-old male with a history of aortic stenosis who is on Coumadin has had a fall outside of his home today he is uncertain exactly how this happened he was out on his front porch getting ready to go to [employer] study when he fell. He does not remember the fall does not remember feeling lightheaded or dizzy prior to the fall. He was able to get his 's attention by kicking at the door. The patient has a history of Absence seizures and he has had some absence here in the emergency department. He complains of a headache and multiple areas of pain. He fell onto his right side and complains of pain in the right shoulder right elbow right hip right knee and both ankles. In addition he has some pain in his neck and a headache.His indicates that he has had 2 other falls in the past 2 days neither 1 of which caused any injury. In asking the patient about his falls he does not feel that he had any lightheadedness or dizziness prior to those falls. He does not usually have an issue with falls. Review of Systems Constitutional: denies: Fever, Chills, Myalgias Eyes: denies: Decreased vision Ears: denies: Loss of hearing, Ear pain Nose: denies: Rhinorrhea / runny nose, Congestion Throat: denies: Sore throat Cardiac: denies: Chest pain / pressure, Palpitations Respiratory: denies: Dyspnea, Cough GI: denies: Abdominal Pain, Nausea, Vomiting : denies: Dysuria, Frequency Skin: denies: Rash Musculoskeletal: reports: Neck pain, Back pain, Extremity pain, Joint pain, Extremity swelling, Joint swelling Neurologic: reports: Generalized weakness. denies: Focal weakness, Numbness PD PAST MEDICAL HISTORY - Past Medical History Cardiovascular: Hypertension, High cholesterol, Coronary artery disease, Peripheral Vascular Disease, Angina, VT, Atrial fibrillation, Valve disorder Respiratory: Shortness of breath, Other Neuro: CVA, TIA, Other Endocrine/Autoimmune: Type 2 diabetes GI: GERD : Incontinence, Kidney stones, Other HEENT: Glaucoma, Other Psych: Anxiety Musculoskeletal: Osteoarthritis, Gout, Chronic back pain Derm: Other - Past Surgical History Past Surgical History: Yes General: Cholecystectomy, Appendectomy Ortho: Knee replacement, Rotator cuff repair, Spine surgery, Other Derm: Skin cancer surgery - Present Medications Home Medications: Ambulatory Orders Medication Instructions Recorded Confirmed Allopurinol 100 mg PO DAILY 07/28/16 04/27/17 Blood Sugar Diagnostic [Glucometer 1 each MC DAILY 07/28/16 04/27/17 Strips] Epinephrine 0.3 mg INJ ONCE PRN 07/28/16 04/27/17 Furosemide 40 mg PO DAILY 07/28/16 04/27/17 Hydrocodone/Acetaminophen 5 - 325 mg PO Q4H PRN 07/28/16 04/27/17 [Hydrocodone-APAP 5-300] Methocarbamol 750 mg PO BID PRN 07/28/16 04/27/17 Nitroglycerin 0.4 mg SL ONCE PRN 07/28/16 04/27/17 Tamsulosin [Flomax] 0.4 mg PO DAILY 07/28/16 04/27/17 Warfarin [Coumadin] 10 mg PO DAILY 07/28/16 04/27/17 metFORMIN [Glucophage] 850 mg PO BID 07/28/16 04/27/17 Diphenoxylate/Atropine [Lomotil] 1 - 2 each PO ONCE PRN 12/11/16 04/27/17 Lansoprazole [Prevacid] 30 mg PO DAILY 12/11/16 04/27/17 Losartan Potassium 50 mg PO DAILY 12/11/16 04/27/17 Ondansetron [Ondansetron Odt] 4 mg PO Q6H PRN 12/11/16 04/27/17 lamoTRIgine [LaMICtal] 200 mg PO BID 12/11/16 04/27/17 Escitalopram [Lexapro] 10 mg PO DAILY 04/19/17 04/27/17 Insulin Glargine,Hum.rec.anlog 60 - 80 unit INJ DAILY 04/19/17 04/27/17 [Toujeo Solostar] Potassium Chloride [Klor-Con M20] 20 meq PO TID 04/19/17 04/27/17 Lamotrigine [Lamotrigine] 100 mg ORAL DAILY 04/27/17 04/27/17 - Allergies Allergies/Adverse Reactions: Allergies Allergy/AdvReac Type Severity Reaction Status Date / Time atorvastatin calcium * Allergy Hallucinati Verified 04/27/17 11:52 [From Lipitor] ons ezetimibe [From Zetia] Allergy Respiratory Verified 04/27/17 11:52 Iodinated Contrast- Oral and Allergy Hives Verified 04/27/17 11:52 IV Dye [Iodinated Contrast Media - IV Dye] niacin Allergy Rash Verified 04/27/17 11:52 Penicillins Allergy Respiratory Verified 04/27/17 11:52 Ihopcoy-Mtj-Wbv Reductase Allergy Unknown Verified 04/27/17 11:52 Inhibitor venom-honey bee Allergy Respiratory Verified 04/27/17 11:52 [bee venom (honey bee)] - Social History Does the pt smoke?: No Smoking Status: Former smoker Does the pt drink ETOH?: No Does the pt have substance abuse?: No - Immunizations Immunizations are current?: Yes - POLST Patient has POLST: No PD ED PE NORMAL - Vitals Vital signs reviewed: Yes (Hypertensive) - General General: No acute distress, Well developed/nourished - HEENT HEENT: PERRL, EOMI, Other (There is some pain to palpation of the scalp over the right parietal occipital area. ) - Neck Neck: Supple, no meningeal sign, Other (There is pain to palpation of the posterior cervical spine.) - Cardiac Cardiac: RRR, Other (There is a 2 out of 6 holosystolic murmur at left sternal border.) - Respiratory Respiratory: No respiratory distress, Clear bilaterally - Abdomen Abdomen: Soft, Non tender - Back Back: No CVA TTP, No spinal TTP - Derm Derm: Normal color, Warm and dry, No rash - Extremities Extremities: No deformity, No edema, Other (There is pain to palpation of the shoulder anteriorly and superiorly there is fair range of motion with the shoulder the elbow has an abrasion over the olecranon he is able flex and extend and supinate and pronate the forearm without pain so the wrist is also without pain to full range of motion. Distal neurovascular components are intact. Examination of the right knee reveals surgical scars and no evidence of acute effusion. He does have an abrasion over the patella and the knee is tender in general. The ligaments are stable to testing. The testing to the knee is extremely painful. The distal neurovascular components are intact. Examination of the ankles reveals tenderness to the medial and lateral malleolus bilaterally worse on the left ankle than the right ankle.) - Neuro Neuro: No motor deficit, No sensory deficit, Normal speech - Psych Psych: Normal mood, Normal affect Results - Vitals Vitals: Vital Signs - 24 hr 04/27/17 04/27/17 04/27/17 11:40 11:55 13:47 Temperature 36.3 C L Heart Rate 78 80 70 Respiratory 18 16 17 Rate Blood Pressure 137/71 H 146/82 H 138/78 H O2 Saturation 96 99 97 04/27/17 16:22 Temperature 36.8 C Heart Rate 71 Respiratory 18 Rate Blood Pressure 149/73 H O2 Saturation 97 Oxygen O2 Source Room air Oxygen Flow Rate 2 - Labs Labs: Laboratory Tests 04/27/17 04/27/17 04/27/17 12:14 12:14 12:14 WBC 4.9 RBC 4.16 L Hgb 11.8 L Hct 35.7 L MCV 85.8 MCH 28.4 MCHC 33.1 RDW 15.3 H Plt Count 193 MPV 7.4 Neut # 3.3 Lymph # 0.9 L [place] # 0.5 Eos # 0.1 Baso # 0.0 Absolute Nucleated RBC 0.00 Nucleated RBCs 0.0 PT INR Sodium 136 Potassium 3.9 Chloride 100 L Carbon Dioxide 26 Anion Gap 10.0 BUN 16 Creatinine 0.8 Estimated GFR (MDRD) 96 Glucose 272 H Calcium 10.2 Total Bilirubin 0.4 AST 45 H ALT 40 Alkaline Phosphatase 59 Troponin I < 0.04 Total Protein 7.4 Albumin 3.8 Globulin 3.6 Albumin/Globulin Ratio 1.1 Lipase 37 Urine Color Urine Clarity Urine pH Ur Specific [place] Urine Protein Urine Glucose (UA) Urine Ketones Urine Occult Blood Urine Nitrite Urine Bilirubin Urine Urobilinogen Ur Leukocyte Esterase Urine RBC Urine WBC Ur Squamous Epith Cells Urine Bacteria Urine Casts Ur Microscopic Review Urine Culture Comments 04/27/17 04/27/17 12:14 14:06 WBC RBC Hgb Hct MCV MCH MCHC RDW Plt Count MPV Neut # Lymph # [place] # Eos # Baso # Absolute Nucleated RBC Nucleated RBCs PT 21.5 H INR 1.9 H Sodium Potassium Chloride Carbon Dioxide Anion Gap BUN Creatinine Estimated GFR (MDRD) Glucose Calcium Total Bilirubin AST ALT Alkaline Phosphatase Troponin I Total Protein Albumin Globulin Albumin/Globulin Ratio Lipase Urine Color YELLOW Urine Clarity CLEAR Urine pH 5.0 Ur Specific [place] 1.015 Urine Protein NEGATIVE Urine Glucose (UA) 500 H Urine Ketones NEGATIVE Urine Occult Blood MODERATE H Urine Nitrite NEGATIVE Urine Bilirubin NEGATIVE Urine Urobilinogen 0.2 (NORMAL) Ur Leukocyte Esterase NEGATIVE Urine RBC 6-10 H Urine WBC 0-3 Ur Squamous Epith Cells NONE SEEN Urine Bacteria None Seen Urine Casts 0-2 Fine Granular Ur Microscopic Review INDICATED Urine Culture Comments NOT INDICATED - Rads (name of study) Left ankle Radiology: Prelim report reviewed (Impression: 1. Several small flake fractures medial malleolus, more likely old rather than acute. Correlate clinically.2. Abnormal the Achilles tendon and plantar fascia consistent with chronic calcific tendinitis and fasciitis. Full differential would include chronic renal disease, connective tissue disease, amyloidosis, as well as thermal injury.), EMP read indepedently, See rad report Right ankle Radiology: Prelim report reviewed (Impression: 1. No acute abnormality.2. Extensive chronic calcific plantar fasciitis and Achilles calcific tendinopathy. Full differential of these findings would also include connective tissue disease, chronic renal disease, thermal injury.), EMP read indepedently, See rad report Hip with pelvis right Radiology: Prelim report reviewed (Impression: No fracture or subluxation.), EMP read indepedently, See rad report Right shoulder Radiology: Prelim report reviewed (Impression: Moderately advanced chronic degenerative disease of the right shoulder. No fracture.), EMP read indepedently, See rad report Right knee Radiology: Prelim report reviewed (This), EMP read indepedently, See rad report Cervical spine without Radiology: Prelim report reviewed, EMP read indepedently, See rad report CT head without Radiology: Prelim report reviewed (Impression: 1. Negative nonenhanced head CT. ), EMP read indepedently, See rad report Procedures - IVC sono (time) 1205 Bedside IVC sono: IVC measures (cm) (1.12), IVC collapsed c insp (cm) (complete) , Dehydration Departure - Departure Disposition: 01 Home, Self Care Clinical Impression: Dehydration Fall Qualifiers: Encounter type: initial encounter Qualified Code(s): W19.XXXA - Unspecified fall, initial encounter Back pain Qualifiers: Back pain location: low back pain Chronicity: chronic Back pain laterality: bilateral Sciatica presence: without sciatica Qualified Code(s): M54.5 - Low back pain Patellar fracture Qualifiers: Encounter type: initial encounter Fracture type: closed Fracture morphology: other fracture Laterality: right Qualified Code(s): S82.091A - Other fracture of right patella, initial encounter for closed fracture Ankle sprain Qualifiers: Encounter type: initial encounter Involved ligament of ankle: other ligament Laterality: left Qualified Code(s): S93.492A - Sprain of other ligament of left ankle, initial encounter Shoulder contusion Qualifiers: Encounter type: initial encounter Laterality: right Qualified Code(s): S40.011A - Contusion of right shoulder, initial encounter Concussion Qualifiers: Encounter type: initial encounter Loss of consciousness presence/duration: with LOC of 30 min or less Qualified Code(s): S06.0X1A - Concussion with loss of consciousness of 30 minutes or less, initial encounter Instructions: ED Dehydration, ED Fx Patella, ED Sprain Ankle, ED Concussion Follow-Up: Cameron Mcgill MD [Primary Care Provider] -
[2017-04-27 12:34] LABS: BASOPHILS % (AUTO) 0.2 %; EOSINOPHILS # (AUTO) 0.1 10^3/uL (0.0-0.7); EOSINOPHILS % (AUTO) 2.3 %; HCT - HEMATOCRIT 35.7 % (42.0-52.0); HGB - HEMOGLOBIN 11.8 g/dL (14.0-18.0); LYMPHOCYTES # (AUTO) 0.9 10^3/uL (1.5-3.5); LYMPHOCYTES % (AUTO) 17.9 %; MEAN CORPUSCULAR HEMOGLOBIN 28.4 pg (27.0-31.0); MEAN CORPUSCULAR HGB CONC 33.1 g/dL (32.0-36.0); MEAN CORPUSCULAR VOLUME 85.8 fL (80.0-94.0); MEAN PLATELET VOLUME 7.4 fL (7.4-11.4); MONOCYTES # (AUTO) 0.5 10^3/uL (0.0-1.0); MONOCYTES % (AUTO) 11.2 %; NEUTROPHILS # (AUTO) 3.3 10^3/uL (1.5-6.6); NEUTROPHILS % (AUTO) 68.4 %; RED BLOOD COUNT 4.16 10^6/uL (4.70-6.10); RED CELL DISTRIBUTION WIDTH 15.3 % (12.0-15.0); UNCORRECTED WHITE BLOOD COUNT 4.9 x10^3/uL; WHITE BLOOD COUNT 4.9 x10^3/uL (4.8-10.8)
[2017-04-27 12:35] LABS: BILIRUBIN,URINE NEGATIVE (NEGATIVE)
[2017-04-27] MEDS ORDERED: ONDANSETRON 4 MG/2 ML VIAL IVP STA (12:38)
[2017-04-27] MEDS ORDERED: HYDROmorphone 1 MG/ML SYRINGE IVP STA (12:38)
[2017-04-27 12:41] LABS: UA w/ MICROSCOPIC CHARGE YES
[2017-04-27] MEDS ORDERED: ONDANSETRON 4 MG/2 ML VIAL ONE (12:42)
[2017-04-27] MEDS ORDERED: HYDROmorphone 1 MG/ML SYRINGE ONE (12:42)
[2017-04-27 12:44] LABS: ALBUMIN/GLOBULIN RATIO 1.1 (1.0-2.2); BILIRUBIN,TOTAL 0.4 mg/dL (0.2-1.0); CALCIUM 10.2 mg/dL (8.5-10.3); CREATININE 0.8 mg/dL (0.6-1.2); POTASSIUM 3.9 mmol/L (3.5-5.0); TOTAL PROTEIN 7.4 g/dL (6.7-8.2)
[2017-04-27 12:49] LABS: UR CULTURE IF IND NOT INDICATED; WBC,URINE 0-3 /HPF (0-3)
--- NOTE | 2017-04-27 13:30 | CT Preliminary Report ---
Exam: CT Head W/O IMPRESSION: 1. Negative nonenhanced head CT. [facility] SITE ID: [id number]
--- NOTE | 2017-04-27 13:33 | CT Report ---
EXAM: CT HEAD EXAM DATE: 04/27/2017 01:10 PM. CLINICAL HISTORY: Fall head inj on coumadin . COMPARISON: 12/11/2016. TECHNIQUE: Multiaxial CT images were obtained from the foramen magnum to the vertex. IV contrast: Non e. Reformats: Coronal. In accordance with CT protocol optimization, one or more of the following dose reduction techniques w ere utilized for this exam: automated exposure control, adjustment of mA and/or KV based on patient s ize, or use of iterative reconstructive technique. FINDINGS: Parenchyma: No intraparenchymal hemorrhage. No evidence of mass, midline shift, or CT findings of inf arction. Juarez-white differentiation is distinct. Extraaxial Spaces: No abnormal subdural or epidural fluid collection. Ventricles: Normal in size and position. Sinuses: Imaged paranasal sinuses, orbits, and mastoids show no significant abnormality. Bones: No evidence of fracture or calvarial defect. Other: None. IMPRESSION: 1. Negative nonenhanced head CT. [facility] Referring Provider Line: [phone] SITE ID: [id number]
--- NOTE | 2017-04-27 13:35 | CT Preliminary Report ---
Exam: CT Cervical Spine W/O IMPRESSION: 1. Multilevel chronic degenerative disease without acute fracture or subluxation of cervical spine. [facility] SITE ID: [id number]
--- NOTE | 2017-04-27 13:38 | CT Report ---
EXAM: CT CERVICAL SPINE WITHOUT CONTRAST DATE: 04/27/2017 01:11 PM HISTORY: Fall head inj neck pain . COMPARISONS: 11/10/2015. TECHNIQUE: Thin-section axial images were acquired of the cervical spine without contrast. Post-proce ssing: Coronal and sagittal reformats. Other: None. In accordance with CT protocol optimization, one or more of the following dose reduction techniques w ere utilized for this exam: automated exposure control, adjustment of mA and/or KV based on patient s ize, or use of iterative reconstructive technique. FINDINGS: Alignment: No subluxation or scoliosis. Bones: No fracture. There is degenerative disease involving vertebral bodies and endplates with endpl ates spurring. There are subchondral cysts consistent with degenerative disease. Vertebral bodies jarret ear normal in height. Interspace Levels/Facets: There is moderate disk height loss from C3 to C7. There is facet joint space narrowing and spurring. No bony critical spinal canal stenosis. Musculature: Musculature is symmetric. No paravertebral hematoma. Other: Trachea is midline without displacement. IMPRESSION: 1. Multilevel chronic degenerative disease without acute fracture or subluxation of cervical spine. [facility] Referring Provider Line: [phone] SITE ID: [id number]
--- NOTE | 2017-04-27 14:04 | XRAY Preliminary Report ---
Exam: XR Shoulder 3 View RT IMPRESSION: Moderately advanced chronic degenerative disease of the right shoulder. No fracture. [facility] SITE ID: [id number]
--- NOTE | 2017-04-27 14:06 | XRAY Report ---
EXAM: RIGHT SHOULDER RADIOGRAPHY EXAM DATE: 04/27/2017 01:35 PM. CLINICAL HISTORY: Fall shoulder pain . COMPARISON: None. TECHNIQUE: 3 views. FINDINGS: Bones: Negative for an acute fracture. There is a moderate degree of spurring and sclerosis around th e glenohumeral joint. Joints: There is moderate joint space narrowing of the glenohumeral joint. No dislocation. Soft tissues: Lung volumes are low. No rotator cuff calcifications visualized. IMPRESSION: Moderately advanced chronic degenerative disease of the right shoulder. No fracture. [facility] Referring Provider Line: [phone] SITE ID: [id number]
--- NOTE | 2017-04-27 14:07 | XRAY Preliminary Report ---
Exam: XR Hip w/Pelvis 2-3V RT IMPRESSION: No fracture or subluxation. [facility] SITE ID: [id number]
--- NOTE | 2017-04-27 14:09 | XRAY Report ---
EXAM: RIGHT HIP AND PELVIS RADIOGRAPHY EXAM DATE: 04/27/2017 01:35 PM. HISTORY: Fall hip pain . COMPARISONS: None. TECHNIQUE: 1 view of the pelvis and 1 view of the hip. FINDINGS: Bones: Normal. No fracture or bone lesion. Joints: The bilateral hip, pubis symphysis, and sacroiliac joints are preserved. Soft Tissues: No dilated bowel loops. IMPRESSION: No fracture or subluxation. [facility] Referring Provider Line: [phone] SITE ID: [id number]
--- NOTE | 2017-04-27 14:15 | XRAY Preliminary Report ---
Exam: XR Ankle 3 View RT IMPRESSION: 1. No acute bony abnormality. 2. Extensive chronic calcific plantar fasciitis and Achilles calcific tendinopathy. Full differential of these findings would also include connective tissue disease, chronic renal disease, thermal injur y. [facility] SITE ID: [id number]
--- NOTE | 2017-04-27 14:18 | XRAY Preliminary Report ---
Exam: XR Ankle 3 View LT IMPRESSION: 1. Several small flake fractures medial malleolus, more likely old than acute. Correlate clinically. 2. Abnormal Achilles tendon and plantar fascia consistent with chronic calcific tendinitis and fascii tis. Full differential would include chronic renal disease, connective tissue disease, amyloidosis, a s well as thermal injury. [facility] SITE ID: [id number]
--- NOTE | 2017-04-27 14:21 | XRAY Report ---
EXAM: RIGHT ANKLE RADIOGRAPHY EXAM DATE: 04/27/2017 01:35 PM. CLINICAL HISTORY: Fall; bilateral ankle pain. COMPARISON: None. TECHNIQUE: 3 views. FINDINGS: Bones: Normal. No fractures or bone lesions. Joints: Normal. No effusion. No subluxations. The ankle mortise is normally aligned. Soft Tissues: Large osteophytes at the calcaneal insertion of the Achilles tendon and plantar fascia. Extensive dystrophic calcifications within the thickened plantar fascia. Extensive dystrophic calcif ications throughout the extremely thickened Achilles tendon and musculotendinous junction of the ricarda sandra. IMPRESSION: 1. No acute bony abnormality. 2. Extensive chronic calcific plantar fasciitis and Achilles calcific tendinopathy. Full differential of these findings would also include connective tissue disease, chronic renal disease, amyloidosis, thermal injury. [facility] Referring Provider Line: [phone] SITE ID: [id number]
--- NOTE | 2017-04-27 14:23 | XRAY Preliminary Report ---
Exam: XR Knee 4 View RT IMPRESSION: 1. Assess clinically to determine if there is a patellar fracture. 2. Multiple loose bodies within the artificial joint. 3. Extensive ligamentous dystrophic calcifications, statistically most likely with chronic renal fail ure. [facility] SITE ID: [id number]
[2017-04-27 14:24] LABS: INR 1.9 (0.8-1.2); PT - PROTHROMBIN TIME 21.5 secs (9.9-12.6)
--- NOTE | 2017-04-27 14:28 | XRAY Report ---
EXAM: LEFT ANKLE RADIOGRAPHY EXAM DATE: 04/27/2017 01:35 PM. CLINICAL HISTORY: Fall; bilateral ankle pain . COMPARISON: None. TECHNIQUE: 3 views. FINDINGS: Bones: Several 5 mm and smaller corticated calcifications inferior to the medial malleolus consistent with flake fractures. Trabecular and cortical patterns are otherwise unremarkable. Joints: Normal. No effusion. No subluxations. The ankle mortise is normally aligned. Soft Tissues: Extensive dystrophic calcifications within the thickened Achilles tendon as well as wit hin the thickened plantar fascia. IMPRESSION: 1. Several small flake fractures medial malleolus, more likely old than acute. Correlate clinically. 2. Abnormal Achilles tendon and plantar fascia consistent with chronic calcific tendinitis and fascii tis. Full differential would include chronic renal disease, connective tissue disease, amyloidosis, a s well as thermal injury. [facility] Referring Provider Line: [phone] SITE ID: [id number]
--- NOTE | 2017-04-27 14:34 | XRAY Report ---
EXAM: RIGHT KNEE RADIOGRAPHY EXAM DATE: 04/27/2017 01:35 PM. CLINICAL HISTORY: Fall knee pain. COMPARISON: None. TECHNIQUE: 4 views. FINDINGS: Bones: Fragmentation of the [place] patellar bone into which the prosthesis is fastened. Extensive dys trophic calcifications lateral to the [place] patella. Joints: Remote right total knee replacement. Surgical hardware intact. Small effusion. Multiple calci fied loose bodies throughout the knee joint. Bones in anatomic alignment. Soft Tissues: Moderate edema anterior to the patella. Extensive dystrophic calcifications within the proximal tibial fibular interosseous ligament. IMPRESSION: 1. Assess clinically to determine if there is a patellar fracture. 2. Multiple loose bodies within the artificial joint. 3. Extensive ligamentous dystrophic calcifications, statistically most likely with chronic renal fail ure. [facility] Referring Provider Line: [phone] SITE ID: [id number]
[2017-04-27 16:23] VITALS: BP 149/73
== END 2017-04-27 17:00 | disposition home or self-care (01) ==
LOC: ED 11:38
DX: E86.0 Dehydration (principal); S82.091A Other fracture of right patella, initial encounter for closed fracture; S93.492A Sprain of other ligament of left ankle, initial encounter; S40.011A Contusion of right shoulder, initial encounter; Y92.008 Other place in unspecified non-institutional (private) residence as the place of occurrence of the external cause; W18.30XA Fall on same level, unspecified, initial encounter; M54.5 Low back pain; I10 Essential (primary) hypertension; E11.51 Type 2 diabetes mellitus with diabetic peripheral angiopathy without gangrene; I25.2 Old myocardial infarction; I48.91 Unspecified atrial fibrillation; I25.10 Atherosclerotic heart disease of native coronary artery without angina pectoris; Z79.01 Long term (current) use of anticoagulants; Z86.73 Personal history of transient ischemic attack (TIA), and cerebral infarction without residual deficits; Z96.659 Presence of unspecified artificial knee joint
CPT/HCPCS: 36415; 70450; 72125; 73030; 73502; 73564; 73610; 80053; 81001; 83690; 84484; 85025; 85610; 96374; 96375; 99284; J1170; 81003; 87086

== ENCOUNTER 2017-06-02 16:06 | Outpatient (CLI) | payer MEDICARE, OTHER | END 2017-06-02 16:07 | disposition critical access hospital (66) | LOC: EMS 16:06 | PROVIDERS: ATTEND Surgery | DX: S06.9X9A Unspecified intracranial injury with loss of consciousness of unspecified duration, initial encounter (principal); W18.39XA Other fall on same level, initial encounter; W22.8XXA Striking against or struck by other objects, initial encounter; Y92.009 Unspecified place in unspecified non-institutional (private) residence as the place of occurrence of the external cause | CPT/HCPCS: A0425; A0427 ==

== ENCOUNTER 2017-06-02 16:21 | Observation (INO) | payer MEDICARE, OTHER ==
[2017-06-02 16:42] LABS: BASOPHILS % (AUTO) 0.6 %; EOSINOPHILS # (AUTO) 0.1 10^3/uL (0.0-0.7); EOSINOPHILS % (AUTO) 1.9 %; HCT - HEMATOCRIT 39.2 % (42.0-52.0); LYMPHOCYTES # (AUTO) 1.3 10^3/uL (1.5-3.5); MEAN CORPUSCULAR HEMOGLOBIN 27.8 pg (27.0-31.0); MEAN CORPUSCULAR VOLUME 84.3 fL (80.0-94.0); MEAN PLATELET VOLUME 7.1 fL (7.4-11.4); MONOCYTES # (AUTO) 0.5 10^3/uL (0.0-1.0); MONOCYTES % (AUTO) 8.6 %; NEUTROPHILS # (AUTO) 3.9 10^3/uL (1.5-6.6); NEUTROPHILS % (AUTO) 66.9 %; RED BLOOD COUNT 4.65 10^6/uL (4.70-6.10); RED CELL DISTRIBUTION WIDTH 15.4 % (12.0-15.0); UNCORRECTED WHITE BLOOD COUNT 5.9 x10^3/uL; WHITE BLOOD COUNT 5.9 x10^3/uL (4.8-10.8)
[2017-06-02 16:51] LABS: ALBUMIN/GLOBULIN RATIO 1.2 (1.0-2.2); BILIRUBIN,TOTAL 0.4 mg/dL (0.2-1.0); CREATININE 0.8 mg/dL (0.6-1.2); POTASSIUM 3.6 mmol/L (3.5-5.0); TOTAL PROTEIN 7.4 g/dL (6.7-8.2)
--- NOTE | 2017-06-02 17:04 | ED Physician Documentation ---
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 He fell backward and struck head on washer. heard the fall and came to him. She says he had complete LOC that persisted for about 5 minutes, until time of EMS arrival. They report he had LOC still and was just rousing on their arrival. Concern that he is on COumadin. Alert now, with some headache. 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 No: Paresthesias, Seizures Symptoms worsen with: Palpation, Movement (headache with head movement) Contributing factors: Anticoagulated. No: Intoxicated Recently seen: Not recently seen Review of Systems Constitutional: denies: Fever, Chills Nose: denies: Rhinorrhea / runny nose, Congestion Throat: denies: Sore throat Cardiac: denies: Chest pain / pressure, Palpitations Respiratory: denies: Dyspnea, Cough GI: reports: Nausea. denies: Abdominal Pain, Vomiting, Diarrhea : denies: Dysuria, Frequency Skin: denies: Abrasion (s), Laceration (s) Musculoskeletal: reports: Neck pain. denies: Back pain, Extremity pain Neurologic: reports: Headache, Head injury, LOC. denies: Focal weakness, Numbness Endocrine: reports: Easy bruising / bleeding. denies: Weight loss Immunocompromised: denies: Immunocompromised PD PAST MEDICAL HISTORY - Past Medical History Cardiovascular: Hypertension, High cholesterol, Coronary artery disease, Peripheral Vascular Disease, Angina, MS, Atrial fibrillation, Valve disorder Respiratory: Shortness of breath, Other Neuro: CVA, TIA, Other Endocrine/Autoimmune: Type 2 diabetes GI: GERD : Incontinence, Kidney stones, Other HEENT: Glaucoma, Other Psych: Anxiety Musculoskeletal: Osteoarthritis, Gout, Chronic back pain Derm: Other - Past Surgical History Past Surgical History: Yes General: Cholecystectomy, Appendectomy Ortho: Knee replacement, Rotator cuff repair, Spine surgery, Other Derm: Skin cancer surgery - Present Medications Home Medications: Ambulatory Orders Medication Instructions Recorded Confirmed Allopurinol 100 mg PO DAILY 07/28/16 04/27/17 Blood Sugar Diagnostic [Glucometer 1 each MC DAILY 07/28/16 04/27/17 Strips] Epinephrine 0.3 mg INJ ONCE PRN 07/28/16 04/27/17 Furosemide 80 mg PO DAILY 07/28/16 04/27/17 Hydrocodone/Acetaminophen 5 - 325 mg PO Q4H PRN 07/28/16 04/27/17 [Hydrocodone-APAP 5-300] Methocarbamol 750 mg PO BID PRN 07/28/16 04/27/17 Nitroglycerin 0.4 mg SL ONCE PRN 07/28/16 04/27/17 Tamsulosin [Flomax] 0.4 mg PO DAILY 07/28/16 04/27/17 Warfarin [Coumadin] 10 mg PO DAILY 07/28/16 04/27/17 Diphenoxylate/Atropine [Lomotil] 1 - 2 each PO ONCE PRN 12/11/16 04/27/17 Losartan Potassium 50 mg PO DAILY 12/11/16 04/27/17 Ondansetron [Ondansetron Odt] 4 mg PO Q6H PRN 12/11/16 04/27/17 lamoTRIgine [LaMICtal] 100 mg PO BID 12/11/16 04/27/17 Insulin Glargine,Hum.rec.anlog 60 - 70 unit INJ DAILY 04/19/17 04/27/17 [Toujeo Solostar] Albuterol 1.25 mg 06/02/17 06/02/17 Fluticasone Propionate [Flovent 110 mcg IH PRN 06/02/17 Diskus] Potassium Citrate [Potassium 1,080 meq PO 06/02/17 Citrate ER] - Allergies Allergies/Adverse Reactions: Allergies Allergy/AdvReac Type Severity Reaction Status Date / Time acetaminophen [From Percocet] Allergy Unknown Verified 06/02/17 17:17 adhesive tape Allergy Unknown Verified 06/02/17 16:32 atorvastatin calcium * Allergy Hallucinati Verified 06/02/17 17:17 [From Lipitor] ons ezetimibe [From Zetia] Allergy Respiratory Verified 06/02/17 17:17 fenofibrate Allergy Unknown Verified 06/02/17 17:17 Iodinated Contrast- Oral and Allergy Hives Verified 06/02/17 17:17 IV Dye [Iodinated Contrast Media - IV Dye] meperidine [From Demerol] Allergy Unknown Verified 06/02/17 17:17 methadone Allergy Unknown Verified 06/02/17 17:17 niacin Allergy Rash Verified 06/02/17 17:17 oxycodone [From Percocet] Allergy Unknown Verified 06/02/17 17:17 Penicillins Allergy Respiratory Verified 06/02/17 16:32 Brgbhit-Thw-Pta Reductase Allergy Unknown Verified 06/02/17 17:17 Inhibitor venom-honey bee Allergy Respiratory Verified 06/02/17 17:17 [bee venom (honey bee)] - Living Situation Living Situation: reports: With spouse/s.o. Living Arrangement: reports: At home - Social History Does the pt smoke?: No Smoking Status: Never smoker Does the pt drink ETOH?: No Does the pt have substance abuse?: No - Immunizations Immunizations are current?: Yes - POLST Patient has POLST: No PD ED PE NORMAL - Vitals Vital signs reviewed: Yes - General General: Alert and oriented X 3, No acute distress, Well developed/nourished - HEENT HEENT: PERRL, EOMI, Moist mucous membranes, Pharynx benign, Other (back of head with focal swelling. No laceration. ) - Neck Neck: Supple, no meningeal sign, No adenopathy, Other (mid to lower neck, to sides in muscle area.) - Cardiac Cardiac: RRR, No murmur - Respiratory Respiratory: Clear bilaterally - Abdomen Abdomen: Soft, Non tender - Back Back: No CVA TTP, No spinal TTP - Derm Derm: Normal color, Warm and dry - Extremities Extremities: No deformity, No tenderness to palpate, Normal ROM s pain, No edema , No calf tenderness / cord, Other - Neuro Neuro: Alert and oriented X 3, medical receptionist assistant 2-12 intact, No motor deficit, No sensory deficit, Normal speech, Other - Psych Psych: Normal mood, Normal affect Results - Vitals Vitals: Vital Signs - 24 hr 06/02/17 06/02/17 16:23 17:36 Temperature 36.7 C 36.2 C L Heart Rate 80 72 Respiratory 22 24 Rate Blood Pressure 140/85 H 122/67 O2 Saturation 95 98 Oxygen O2 Source Room air - Labs Labs: Laboratory Tests 06/02/17 06/02/17 06/02/17 16:33 16:33 16:33 WBC 5.9 RBC 4.65 L Hgb 13.0 L Hct 39.2 L MCV 84.3 MCH 27.8 MCHC 33.0 RDW 15.4 H Plt Count 188 MPV 7.1 L Neut # 3.9 Lymph # 1.3 L [place] # 0.5 Eos # 0.1 Baso # 0.0 Absolute Nucleated RBC 0.00 Nucleated RBC % 0.0 PT INR Sodium 137 Potassium 3.6 Chloride 102 Carbon Dioxide 24 Anion Gap 11.0 BUN 17 Creatinine 0.8 Estimated GFR (MDRD) 96 Glucose 189 H Calcium 10.0 Total Bilirubin 0.4 AST 38 ALT 41 Alkaline Phosphatase 63 Troponin I < 0.04 Total Protein 7.4 Albumin 4.0 Globulin 3.4 Albumin/Globulin Ratio 1.2 Lipase 34 Urine Color Urine Clarity Urine pH Ur Specific [place] Urine Protein Urine Glucose (UA) Urine Ketones Urine Occult Blood Urine Nitrite Urine Bilirubin Urine Urobilinogen Ur Leukocyte Esterase Urine RBC Urine WBC Ur Squamous Epith Cells Urine Crystals Urine Bacteria Urine Casts Ur Microscopic Review Urine Culture Comments Ethyl Alcohol 06/02/17 06/02/17 06/02/17 16:33 16:33 16:55 WBC RBC Hgb Hct MCV MCH MCHC RDW Plt Count MPV Neut # Lymph # [place] # Eos # Baso # Absolute Nucleated RBC Nucleated RBC % PT 25.4 H INR 2.2 H Sodium Potassium Chloride Carbon Dioxide Anion Gap BUN Creatinine Estimated GFR (MDRD) Glucose Calcium Total Bilirubin AST ALT Alkaline Phosphatase Troponin I Total Protein Albumin Globulin Albumin/Globulin Ratio Lipase Urine Color YELLOW Urine Clarity CLEAR Urine pH 5.5 Ur Specific [place] 1.025 Urine Protein NEGATIVE Urine Glucose (UA) 100 H Urine Ketones NEGATIVE Urine Occult Blood LARGE H Urine Nitrite NEGATIVE Urine Bilirubin NEGATIVE Urine Urobilinogen 0.2 (NORMAL) Ur Leukocyte Esterase NEGATIVE Urine RBC 6-10 H Urine WBC 0-3 Ur Squamous Epith Cells NONE SEEN Urine Crystals 0-2 Calcium Oxalate Urine Bacteria None Seen Urine Casts 3-5 Hyaline Casts Ur Microscopic Review INDICATED Urine Culture Comments NOT INDICATED Ethyl Alcohol < 5.0 - Rads (name of study) head CT Radiology: Prelim report reviewed (no ICH) cervical CT Radiology: Prelim report reviewed (no noted acute fractures) PD MEDICAL DECISION MAKING - ED course Complexity details: reviewed results (no ICH nor head/neck fractures. However he did have prolonged LOC, so concerning for potential delayed bleed and also needs ongoing neuro checks regarding the head injury. Talked with Hospitalist, Dr. Pennington, who will place patient in OBS for these reasons. ), considered differential, d/w patient Departure - Departure Disposition: ED Place in Observation Clinical Impression: Anticoagulant long-term use Accidental fall Qualifiers: Encounter type: initial encounter Qualified Code(s): W19.XXXA - Unspecified fall, initial encounter Concussion Qualifiers: Encounter type: initial encounter Loss of consciousness presence/duration: with LOC of 30 min or less Qualified Code(s): S06.0X1A - Concussion with loss of consciousness of 30 minutes or less, initial encounter Condition: Stable Record reviewed to determine appropriate education?: Yes Discharge Date/Time: 06/02/17 18:45
[2017-06-02 17:08] LABS: BILIRUBIN,URINE NEGATIVE (NEGATIVE); PH,URINE 5.5 PH (5.0-7.5)
[2017-06-02 17:11] LABS: UA w/ MICROSCOPIC CHARGE YES
[2017-06-02] MEDS ORDERED: HYDROmorphone 1 MG/ML CARPUJECT IVP STA (17:19)
[2017-06-02 17:20] LABS: UR CULTURE IF IND NOT INDICATED; WBC,URINE 0-3 /HPF (0-3)
--- NOTE | 2017-06-02 17:20 | CT Preliminary Report ---
Exam: CT Head W/O IMPRESSION: No acute intracranial abnormality. [facility] SITE ID: [id number]
--- NOTE | 2017-06-02 17:23 | CT Report ---
EXAM: CT HEAD EXAM DATE: 06/02/2017 04:46 PM. CLINICAL HISTORY: Fall head injury +LOC on coumadin. COMPARISON: None. TECHNIQUE: Multiaxial CT images were obtained from the foramen magnum to the vertex. IV contrast: Non e. Reformats: Coronal. In accordance with CT protocol optimization, one or more of the following dose reduction techniques w ere utilized for this exam: automated exposure control, adjustment of mA and/or KV based on patient s ize, or use of iterative reconstructive technique. FINDINGS: Parenchyma: No intraparenchymal hemorrhage. No evidence of mass, midline shift, or CT findings of inf arction. Juarez-white differentiation is distinct. Extraaxial Spaces: Enlarged cortical CSF spaces consistent with cerebral atrophy. No extra-axial mary lou ections or space-occupying lesions. Ventricles: Normal in size and position. Sinuses: Imaged paranasal sinuses, orbits, and mastoids show no significant abnormality. Bones: No evidence of fracture or calvarial defect. Other: None. IMPRESSION: No acute intracranial abnormality. [facility] Referring Provider Line: [phone] SITE ID: [id number]
[2017-06-02] MEDS ORDERED: HYDROmorphone 1 MG/ML CARPUJECT ONE (17:29)
[2017-06-02] MEDS ORDERED: SODIUM CHLORIDE FLUSH 0.9% 10 ML SYRINGE IVP ONE (17:29)
[2017-06-02 17:38] LABS: INR 2.2 (0.8-1.2); PT - PROTHROMBIN TIME 25.4 secs (9.9-12.6)
--- NOTE | 2017-06-02 17:51 | CT Preliminary Report ---
Exam: CT Cervical Spine W/O IMPRESSION: 1. No cervical spine fracture or malalignment. 2. Diffuse disk related degenerative changes resulting in [id number] bilateral neural foraminal narrowing most significant at C5-C6. [facility] SITE ID: [id number]
--- NOTE | 2017-06-02 17:53 | CT Report ---
EXAM: CT CERVICAL SPINE WITHOUT CONTRAST DATE: 06/02/2017 05:03 PM HISTORY: Fall head injury neck pain . COMPARISONS: None. TECHNIQUE: Thin-section axial images were acquired of the cervical spine without contrast. Post-proce ssing: Coronal and sagittal reformats. Other: None. In accordance with CT protocol optimization, one or more of the following dose reduction techniques w ere utilized for this exam: automated exposure control, adjustment of mA and/or KV based on patient s ize, or use of iterative reconstructive technique. FINDINGS: Alignment: Normal. No scoliosis or spondylolisthesis. Bones: No fracture or bone lesion. Interspace Levels/Facets: Diffuse disk space narrowing with posterior bulging disk osteophyte complex es resulting in mild to moderate bilateral neural foraminal stenosis at C3-C4, C4-C5, C5-C6 and C6-C7 with most significant degenerative changes at C5-C6. Musculature: Normal. No fatty atrophy. Other: The paravertebral and prevertebral soft tissues are normal. The lung apices are clear. IMPRESSION: 1. No cervical spine fracture or malalignment. 2. Diffuse disk related degenerative changes resulting in pizj-us-nyewtywb bilateral neural foraminal narrowing most significant at C5-C6. [facility] Referring Provider Line: [phone] SITE ID: [id number]
[2017-06-02] MEDS ORDERED: SODIUM CHLORIDE FLUSH 0.9% 10 ML SYRINGE IVP PRN (18:06)
[2017-06-02] MEDS ORDERED: NITROGLYCERIN SL 0.4 MG TABLET SL PRN (19:47)
[2017-06-02] MEDS ORDERED: ONDANSETRON ODT 4 MG TABLET PO PRN (19:47)
[2017-06-02] MEDS ORDERED: HYDROcod/ACETAM 5/325 MG TABLET PO PRN (19:51)
--- NOTE | 2017-06-02 21:09 | HISTORY & PHYSICAL EXAMINATION ---
DATE OF ADMISSION: 06/02/2017 PRIMARY CARE PROVIDER: Dr. Robby Mcgill. PRIMARY ONCOLOGIST: Al Mensah MD, PhD CHIEF COMPLAINT: Approximately 5-minute loss of consciousness after a fall. HISTORY OF PRESENT ILLNESS: The patient is a 67-year-old gentleman, who is on warfarin at home with a therapeutic INR of 2.2. His reports he usually is in a therapeutic range. Today, he was petting his dog and somehow while he was doing this, the dog had paws up on his chest. Somehow, the dog made a motion that caused the patient to fall backward, and he hit his head. His reports that he had a loss of consciousness for approximately 5 minutes. When speaking with me, the patient says he thinks that he regained consciousness in the ambulance. However, the patient's says this actually happened in the house. A CT scan of the head in the emergency room demonstrated no intracranial bleed. On neurologic exam, there were no focal deficits. He is going to be watched overnight with close neurologic exams to ensure that there is no change and possibly a repeat CT of the head in the morning. The patient specifically denies that he had any lightheadedness, shortness of breath, or chest pain as a prodrome for this fall. His does report that he has aortic stenosis and is followed by Josue Yoo at the [facility], but again he denies that there was any prodrome prior to this fall and that it was due to the dog. He has had falls in the past, primarily due to his peripheral neuropathy. He is actually getting physical therapy at this time for training and balance and had just gotten home from physical therapy when this event happened today. PAST MEDICAL HISTORY: 1. Prostate cancer diagnosed approximately 1 year ago, status post radiation treatment and currently on Lupron. 2. Hypertension. 3. Hyperlipidemia. 4. Deep venous thrombosis x2, on chronic warfarin. 5. Glaucoma. 6. Osteoarthritis. 7. Chronic back pain. 8. History of gout. 9. History of reactive airway disease. No longer on any inhalers. 10. History of diabetes mellitus type 2, with the last A1c in our system on January 15, 2017, at 6.5, currently on Toujeo. 11. Gastroesophageal reflux disease. 12. Aortic stenosis per the , with the last record in our system being an echo from 2014 with [id number] aortic stenosis, with at that time a maximum pressure gradient of 35 mmHg and a mean pressure gradient of 21 mm. The more recent echos are probably at the [facility]. 13. Prior records indicate a possible history of TIA and possible coronary artery disease. He is not on aspirin, which argues against these diagnoses. 14. History of skin cancer. 15. History of BPH. 16. History of absence seizures, with the last one being in January. ALLERGIES: A list was provided by the patient's spouse. These include: 1. BEE VENOM, for which he has anaphylaxis and has an EpiPen. 2. PENICILLINS. 3. ZETIA. 4. CONTRAST DYE. 5. DEMEROL. 6. FENOFIBRATE. 7. LIPITOR. 8. METHADONE. 9. NIACIN. 10. PERCOCET. 11. STATINS. 12. ADHESIVE TAPE. HOME MEDICATIONS: Of note, he is no longer on any inhaled steroids or bronchodilators. 1. Allopurinol 100 mg daily x1. 2. Toujeo, 60-70 units daily. He did not get today's dose. 3. Furosemide 40 mg, 2 tablets once daily. He says he is prescribed twice daily , but only takes it once daily. 4. Lupron shot as per the oncologist. 5. Hydrocodone/acetaminophen 5/325, 1 to 2 tablets every 4 hours as needed for pain. 6. Ketaconazole 2% cream p.r.n. for face rash. 7. Losartan 25 mg 1/2 of 50 mg tablet once daily. 8. Methocarbamol 750 mg, 1-2 tablets twice daily. 9. Metformin has been stopped due to diarrhea. 10. Nitroglycerin 0.4 mg sublingual if needed for chest pain. He has not needed this. 11. Potassium citrate 3 tablets once daily. 12. Flomax 0.4 mg once daily in the form of tamsulosin. 13. Warfarin 7.5 mg Mon/We/Fri, 10 mg Sun//tues/Thurs/Sat 14. Zofran 4 mg as needed for nausea. 15. Lomotil 2.5 mg as needed for diarrhea twice daily. 16. Lamotrigine 100 mg twice daily 17 [id number] mg once daily 18. Pantoprazole 40 mg once daily. 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 He smoked in his early for several years, but has not smoked since then. He rarely drinks alcohol. He lives with his . He has been for 36 years. He also has a daughter living with them in their home with what he calls her "other half." FAMILY HISTORY: His mother and father had coronary artery disease. His father had lung cancer. His mother had breast cancer. Family history of obesity in his siblings, as well as a history of heart disease in his siblings. His children are obese, but otherwise healthy. CODE STATUS: THE PATIENT INDICATES HE IS A FULL CODE. REVIEW OF SYSTEMS: CONSTITUTIONAL: The patient denies any unintentional weight loss or weight gain. He reports he is trying to lose weight. He has had no fevers. However, he does have hot flashes on occasion due to his Lupron, as well as occasional night sweats. He denies any lymphadenopathy, although he says sometimes he thinks all of his neck glands are swollen. HEAD, EYES, EARS, NOSE AND THROAT: With his fall today, he does not have any complaints of pain on his head. There are no vision changes. He does have known glaucoma. He is on no agents for that. No change in hearing. No neck stiffness. CARDIOVASCULAR: He denies any chest pain, although he has had it in the past. No palpitations. No near-syncope. RESPIRATORY: No cough. No shortness of breath or wheezing. As noted, he is not taking any more of his inhalers. He does get some windedness with exertion, which is also likely due to his obesity and deconditioning. GASTROINTESTINAL: He denies any appetite changes. No vomiting. He does have diarrhea since his radiation treatment to his prostate. He used to be going 7- 10 times a day and now down to about 4 times a day. He does take Lomotil for that. He does not have blood in his bowel movements. GENITOURINARY: He does have frequency and does have occasional blood-tinged urine. His oncologist is aware of this. There have been no clots. He does not have any dysuria, and there is no incontinence. MUSCULOSKELETAL: He has chronic low back pain. This is due to several falls. He is on both p.r.n. Vicodin and Robaxin, which he wishes to continue in the hospital. SKIN: Denies any changes other than occasional use of ketaconazole for a face rash. NEUROLOGIC: He does have a history of absence seizures. Has not had one since January. He is on Lamictal for this. He does not have any focal weakness. He does have peripheral neuropathy, which is worse in the left lower extremity. PSYCHIATRIC: There are no mood changes. HEMATOLOGIC: He denies any other swollen glands. No easy bruising. Only the hematuria as noted under the review of systems. PHYSICAL EXAMINATION: GENERAL: The patient is a very short, rotund gentleman, with a liz complexion. He is alert, and he is oriented x3. He needed to think a bit about which month it is, but he was able to name the year, the date, the president, what happened, and able to go through his medication list with me. HEAD, EYES, EARS, NOSE AND THROAT: There is no evidence of head trauma. His pupils are equal. Extraocular movements intact. Pupils are approximately 2 mm. There is no nystagmus. Cranial nerves 2 through 12 are intact. His face is symmetrical. He has 3-item recall. Otherwise, his oral mucosa is moist. He has adequate, but somewhat poor lower dentition. He does have an upper bridge. NECK: His neck is very full. I do not appreciate any neck stiffness. CARDIOVASCULAR: He has a regular rate and rhythm. I do not appreciate any murmur. He has a warm periphery, with 2+ pulses. There is trace pretibial and pedal edema on the left; not notable on the right. There is some old hemosiderin staining on both of the shins. RESPIRATORY: He has unlabored respirations lying flat in bed. CHEST: Clear to auscultation. GASTROINTESTINAL: He has a very obese, rounded abdomen, with positive bowel sounds. There is an approximately 1-inch umbilical hernia that is easily reducible. His abdomen is soft and nondistended. I am not able to appreciate any organomegaly with his habitus. There is a very mild bruise at a Toujeo site on his left abdomen. SKIN: Warm and dry. There is no rash. As noted, there is old hemosiderin staining on his shins. He has a liz complexion, but I do not appreciate a rash on his face. NEUROLOGIC: As above. EXTREMITIES: His upper extremities are with equal strength bilaterally. On the lower extremity exam, he is only able to lift his legs from flat lying, at approximately 3.5/5. This is primarily due to back pain and not any new loss of motor function there. PSYCH: His mood and affect are normal. DIAGNOSTIC STUDIES: 1. IMAGING: A head CT done on June 02 in the emergency room shows no acute intracranial abnormality. This was done at 5:00 p.m. 2. LABORATORY STUDIES: Sodium 137, potassium 3.6, chloride 102, bicarbonate 24, BUN 17, creatinine 0.8, glucose 189, calcium 10.0, total bilirubin 0.4. AST and ALT are 38 and 41, respectively. Alk phos 63. Troponin was less than 0.04. Albumin is 4.0. INR was 2.2. Hematology: White count 5.9, hemoglobin 13.0, hematocrit 39.2, platelets 188,000. UA done today is notable for large occult blood, which is not new for him, 6-10 red cells, and hyaline casts; no bacteria. ASSESSMENT AND PLAN: 1. Fall, with head contusion and loss of consciousness. He is back at his baseline mentation (which includes mild forgetfulness, and some diffficulty with medication management per Dorothy Chadwick notes), and his corroborates that. Since his INR was therapeutic with this fall and hitting his head, he will have neuro checks overnight. The first 3 checks will be done every 2 hours , and then this will be changed to q.4h. We will consider a repeat CT in the morning to re-evaluate that if there is any change in his cognition or neurologic exam, he will have a repeat CT sooner. Obviously, if there was any bleed, he would to be transferred to a higher level of care. His INR will be rechecked in the morning. Additionally, although it is unlikely we would see something on telemetry, an EKG can have changes in the settting of intracranial hemmorhage, so he will be on telemetry overnight. 2. Diarrhea. He will be continued on his home dose of Lomotil b.i.d. here. That diarrhea is related to radiation treatment to his prostate. 3. History of seizure disorder. He will continue on his home lamotrigine. 4. Recent history of deep vein thrombosis x2. We are holding his warfarin tonight. He does not need reversal, and we will consider in the morning how many days to hold off on it after this brief head injury. 5. Hypertension. His blood pressure is reasonably controlled, and we will resume his Losartan in the morning as long as his mental status is at baseline. 6. Diabetes mellitus type 2. We do not have Toujeo here. I will give him 8 units of Lantus tonight and a moderate-dose sliding scale. Tomorrow, he will probably be able to go home and resume his Toujeo. He can have a diabetic diet. 7. Chronic lower extremity edema. He is on Lasix at home. We will likely resume that in the morning. 8. Chronic pain. He can continue his home dose of Vicodin. I would prefer to hold off on the methocarbamol tonight if that clouds his mentation at all. 9. Gout. He can continue his allopurinol tomorrow. 10. DVT prophylaxis. None indicated. He already has a therapeutic INR. CODE STATUS: FULL CODE. JOB #: [id number] EXT JOB #:[id number] MTDD
[2017-06-02] MEDS: DIPHENOX/ATROPINE 2.5/0.025 MG TABLET PO SCH (21:17)
[2017-06-02] MEDS: SODIUM CHLORIDE FLUSH 0.9% 10 ML SYRINGE IVP SCH (21:18)
[2017-06-03] MEDS ORDERED: ACETAMINOPHEN 325 MG TABLET PO PRN (01:08)
[2017-06-03 04:28] LABS: INR 2.4 (0.8-1.2); PT - PROTHROMBIN TIME 27.3 secs (9.9-12.6)
[2017-06-03] MEDS: SODIUM CHLORIDE FLUSH 0.9% 10 ML SYRINGE IVP SCH (05:36)
[2017-06-03 06:24] LABS: HEMOGLOBIN A1C 0.83 g/dL
[2017-06-03] MEDS ORDERED: INSULIN GLARGINE 300 UNIT/3 ML PEN SUBQ SCH ×2 (08:00→21:00)
[2017-06-03] MEDS ORDERED: TAMSULOSIN 0.4 MG CAPSULE PO SCH (09:00)
[2017-06-03] MEDS ORDERED: ALLOPURINOL 100 MG TABLET PO SCH (09:00)
[2017-06-03] MEDS ORDERED: LOSARTAN 50 MG TABLET PO SCH (09:00)
[2017-06-03] MEDS ORDERED: POLYETHYLENE GLYCOL 3350 17 GM PACKET PO SCH (09:00)
[2017-06-03] MEDS: DIPHENOX/ATROPINE 2.5/0.025 MG TABLET PO SCH (09:21)
[2017-06-03] MEDS: INSULIN ASPART 300 UNIT/3 ML PEN SUBQ SCH ×3 (09:22→11:55)
--- NOTE | 2017-06-03 11:12 | CT Report ---
CT BRAIN WITHOUT CONTRAST: 06/03/2017 CLINICAL INDICATION: Fall, head injury. COMPARISON: 06/02/2017, 04/27/2017. TECHNIQUE: Axial CT images of the brain were obtained without contrast. FINDINGS: The ventricles and sulci demonstrate symmetric enlargement, compatible with atrophy. Ther e is no evidence of intracranial hemorrhage, mass effect, or midline shift. The basilar cisterns rem ain patent. The visualized orbital contents and paranasal sinuses are unremarkable. No calvarial fr acture is seen. IMPRESSION: STABLE ATROPHY. NO EVIDENCE OF HEMORRHAGE OR MASS EFFECT. NO SIGNIFICANT INTERVAL WAGGONER GE. In accordance with CT protocol optimization, one or more of the following dose reduction techniques w ere utilized for this exam: automated exposure control, adjustment of mA and/or KV based on patient size, or use of iterative reconstructive technique. JOB #: [id number] EXT JOB #:[id number]
--- NOTE | 2017-06-03 11:18 | Discharge Plan ---
Discharge Plan Disposition: Home, Self Care Condition: Stable Diet: Diabetic Shower Restrictions: No Driving Restrictions: Yes Assistance Devices: Walker, Cane (continue using your cane for balance continue your outpatient PT) Weight Bearing: Full Weight Additional Instructions or Follow Up instructions: You were admitted for observation after a fall with loss of consciousness briefly after hitting your head Since you had a therapeutic warfarin dose, there was concern for a head bleed Initial CT was normal (no bleed) (Cervical spine films showed no fracture Since you had a persistant headache, a repeat CT was done on 06/03 (Thursday) to ensure no slow bleed (e.g. a subdural bleed) There is no evident bleeding on the repeat CT Hold your warfarin until Thursday INR was 2.2 06/02, it is 2.4 today Can resume your previous home dosing , and continue INR checks as before No change in home medications other than, hold off on the warfarin until Thursday as above. (can resume if no neurologic changes as above) If there is any change in mentation, any one sided weakness, or new paresthesia (numbness tingly) any trouble speaking, , any change in pupil size ( not symmetric, return to the ED Cold compress to neck for discomfort (and can continue your methocarbamol and if needed hydrocodone/tylenol No Smoking: If you smoke, Please STOP! Call for help. Follow-up with: Cameron Barron MD [Primary Care Provider] - (routine follow up with Dr. barron. No specific follow up needed for this hospitalization INR checks as previously)
[2017-06-03 11:57] VITALS: BP 128/66
--- NOTE | 2017-06-03 12:23 | DISCHARGE SUMMARY ---
DATE OF ADMISSION: 06/02/2017 DATE OF DISCHARGE: PRIMARY CARE PROVIDER: Robby Mcgill MD PRIMARY ONCOLOGIST: Dr. Mensah PRINCIPAL DISCHARGE DIAGNOSIS: Fall with a head contusion and brief loss of consciousness. No intracranial bleed. SECONDARY DIAGNOSIS: Includes chronic anticoagulation on Coumadin with a therapeutic INR on presentation. CONSULTATIONS: None. PROCEDURES: None. DIAGNOSTIC IMAGING STUDIES 1. Cervical spine CAT scan 06/02/2017: 1) No cervical spine fracture or malalignment. 2) Diffuse disk-related degenerative changes with mild to moderate bilateral neural foraminal narrowing, specifically at C5-C6. 2. CT of the head 06/02/2017: No acute intracranial abnormality other than enlarged cortical CSF spaces consistent with cerebral atrophy. Repeat head CT on 06/03/2017, unchanged. No bleed. No mass. LABORATORY STUDIES: INR on admission was 2.2, INR was 2.4 on the day of discharge. Admission sodium 137, potassium 3.6, chloride 102, bicarbonate 24, BUN 17, creatinine 0.8, glucose 189, A1c 8.3. Admission white count 5.9, hemoglobin and hematocrit 13.0 and 39.2, and platelets 188,000. BRIEF HOSPITAL COURSE BY PROBLEM: The patient is a 67-year-old gentleman who has some balance difficulties due to peripheral neuropathy and somehow managed to be pushed over by his dog backwards and he hit his head with a brief, approximately 5 minute, loss of consciousness according to his . This was in the setting of a therapeutic INR of 2.2. On presentation to the emergency room, there were no focal deficits. Head CT showed no bleed nor other acute abnormality and a C-spine film showed no acute neck trauma. Since he is on warfarin anticoagulation with a therapeutic INR (2.2), he was observed overnight with frequent neurologic checks to ensure that there was no slow bleed. A repeat CT done on the subsequent day on 06/03/2017 due to a persistent headache across the top of his head continued to demonstrate no bleed. He is being discharged home. He is advised to hold off on his warfarin until Thursday. Currently the INR is 2.4, but as noted there is no evident subdural or other bleed. His is aware to have him return to the emergency room if there is any new neurologic deficit, and these were discussed with her. DISCHARGE MEDICATIONS: There is no change from his prior medication list other than to hold off on warfarin until Thursday and he can resume that dosing. These medications include: 1. Methocarbamol 750 mg 1-2 tablets twice daily if needed for back pain. 2. Lamotrigine 200 mg twice daily. 3. Furosemide 40 mg twice daily, sometimes he takes this only once daily. 4. Pantoprazole 40 mg once daily. 5. Toujeo insulin 60-80 units as prescribed by primary care provider. 6. Potassium chloride 20 mEq 3 times daily. 7. Tamsulosin 0.4 mg once daily. 8. Losartan 25 mg once daily. 9. Escitalopram 10 mg once daily. 10. Allopurinol 100 mg once daily. 11. Nitroglycerin 0.4 mg every 5 minutes as needed for chest pains. 12. Hydrocodone/acetaminophen 5/325 one tablet every 4 hours if needed for pain. 13. Diphenoxylate 1 tablet twice daily. 14. Tylenol 650 mg every 4 hours if needed. FOLLOWUP: There is no specific followup needed for this hospitalization. He should continue his routine INR checks once he restarts his Coumadin on Thursday, and he should continue his home physical therapy and to continue using his cane. is aware to have him return to the ED if there are any neurologic changes, which are not anticipated. PHYSICAL EXAM: AFEB 36.8 hr 72 128/66 rr 18 95% ra GENERAL: somewhat rotund liz faced gentleman seen in bed and in chair, alert, oriented , appropriate HEENT; no evident head trauma, Patient himself runs his hand over his head and does not localize any particular area of tenderness but has a head ache EYES: EOMI, pupis equal ~ 2mm and reactive , NECK supple Chest: unlabored resps, clear to auscultation Heart; regular S1S2, no peripheral edema (obese extremities Abd; obese,soft, nontender, umbilical hernia (golfball sized Ext; no edema (perhaps trace pretibial on the left) Neuro ; A+O x 3, 3 item recall, CN 2-12 intact, normal gait , symmetric strenght JOB #: [id number] EXT JOB #:[id number] [facility]
== END 2017-06-03 12:29 | disposition home or self-care (01) ==
LOC: EDUNIT# → ED 16:21 → OBS 18:06
PROVIDERS: ADMIT Nurse Practitioner; ATTEND Nurse Practitioner
DX: S00.03XA Contusion of scalp, initial encounter (principal); S06.891A Other specified intracranial injury with loss of consciousness of 30 minutes or less, initial encounter; Z79.01 Long term (current) use of anticoagulants; W54.1XXA Struck by dog, initial encounter; I10 Essential (primary) hypertension; E78.5 Hyperlipidemia, unspecified; I25.10 Atherosclerotic heart disease of native coronary artery without angina pectoris; I73.9 Peripheral vascular disease, unspecified; E11.42 Type 2 diabetes mellitus with diabetic polyneuropathy; I48.91 Unspecified atrial fibrillation; I35.0 Nonrheumatic aortic (valve) stenosis; R19.7 Diarrhea, unspecified; R60.0 Localized edema; K21.9 Gastro-esophageal reflux disease without esophagitis; R32 Unspecified urinary incontinence; H40.9 Unspecified glaucoma; F41.9 Anxiety disorder, unspecified; M19.90 Unspecified osteoarthritis, unspecified site; M10.9 Gout, unspecified; G89.29 Other chronic pain; M54.9 Dorsalgia, unspecified; E66.9 Obesity, unspecified; Z68.41 Body mass index [BMI] 40.0-44.9, adult; Z96.659 Presence of unspecified artificial knee joint; Z86.73 Personal history of transient ischemic attack (TIA), and cerebral infarction without residual deficits; Z85.828 Personal history of other malignant neoplasm of skin; I25.2 Old myocardial infarction; Z79.891 Long term (current) use of opiate analgesic; Z79.4 Long term (current) use of insulin; Z79.51 Long term (current) use of inhaled steroids; Z79.899 Other long term (current) drug therapy; Y92.008 Other place in unspecified non-institutional (private) residence as the place of occurrence of the external cause; Z91.81 History of falling; Z87.891 Personal history of nicotine dependence; Z86.718 Personal history of other venous thrombosis and embolism; R56.9 Unspecified convulsions
CPT/HCPCS: 36415; 70450; 72125; 80053; 81001; 83036; 83690; 84484; 85025; 85610; 96374; 99284; 99285; A9270; G0378; G0480; J1170; J1815; 80320; 81003; 87086

== ENCOUNTER 2017-06-05 14:44 | Outpatient (CLI) | payer MEDICARE, OTHER ==
--- NOTE | 2017-06-05 19:53 | CONSULTATION NOTE ---
Palliative Care Follow Up - Referral Referring Provider: Dr. Mensah Time of Visit: [phone] Referral setting: [facility] [place] Referral Reason: Acute on Chronic Back Pain - Information Sources Records reviewed: Previous records reviewed History/Review of Systems obtained from: Patient, Family Exam limitations: Clinical condition - History of Present Illness Update Brief HPI Update: This is a 67 year old gentleman who has multiple co-morbidities including metastatic prostate cancer s/p radiation, ongoing Lupron since 05/2016. He has underlying severe back pain from severe DJD, multiple trauma injuries, and now has exacerbated back pain and spasms from yet another fall. He was hospitalized with concern for intracranial bleed, his is on therapeutic warfarin for history of DVTs. He had hit his head, but ruled out bleed, but still presents today with headache. This is his second concussion. He has underlying diabetes with peripheral neuropathy, aortic stenosis, hypertension, hyperlipidemia, seizures, and now with progressive cognitive decline in last 6-8 months. On exam, he has through hour several severe back spasms that immobilize him, worsening with standing and ambulating.Currently taking methocarbamol 750 mg 1- 2 tabs BID, hydrocodone 5 mg/325 mg 1/2 -1 tab up to 4 tablets a day. He is able to ambulate with 4ww, but gait ataxic and problematic. Had another episode at home, "rolled off the bed" eventually able to get up. He continues with headache pain, not worsening, no vision changes. His cognitive decline is noted both by patient and . His CT scan of head does show enlarged CSF space consistent with cerebral atrophy, and on repeat no acute changes 06/03. He notes increased confusion over several weeks, some paranoia ( confirms worsening), and more difficulty with short term memory issues. Very concerned about not remembering or worsening, not recognizing family. He also presents with dizzyness today, b/p 95/61 with pulse 100. Appears "dry", on furosemide, ankles without swelling today. Having residual hematuria, no pain or burning. HCT on discharge was 39.2, reassured. Is to follow up with urology tomorrow. Reports increase pain in "bladder" areas of intense discomfort. Social History - Living Situation Living arrangement: At home Living Situation: With spouse/s.o. Support System: daughter who is expecting in next two weeks and her boyfriend, currently living at home. Medications/Allergies - Medications Home Medications: Ambulatory Orders Medication Instructions Recorded Confirmed Allopurinol 100 mg PO DAILY 07/28/16 06/03/17 Furosemide 20 mg PO DAILY 07/28/16 06/03/17 Methocarbamol 1,500 mg PO BID 07/28/16 06/03/17 Tamsulosin [Flomax] 0.4 mg PO DAILY 07/28/16 06/03/17 Losartan Potassium 25 mg PO DAILY 12/11/16 06/03/17 Insulin Glargine,Hum.rec.anlog 60 - 80 unit SUBQ DAILY 04/19/17 06/03/17 [Toujeo Solostar] Acetaminophen [Tylenol] 650 mg PO Q4HR PRN tablet 06/03/17 Escitalopram [Lexapro] 10 mg PO DAILY 06/03/17 06/03/17 Lamotrigine [Lamictal] 200 mg PO BID 06/03/17 06/03/17 Nitroglycerin [Nitrostat] 0.4 mg SL Q5M PRN tablet 06/03/17 Pantoprazole Sodium 40 mg PO QDAC 06/03/17 06/03/17 Potassium Chloride [Klor-Con M20] 20 meq PO TIDWM 06/03/17 06/03/17 Diphenoxylate/Atropine [Lomotil] 1 tab PO BID PRN 06/07/17 06/07/17 HYDROcod/ACETAM 5/325 [[place] 5/325] 0.5 - 1 tab PO Q4HR PRN 06/07/17 06/07/17 - Allergies Allergies/Adverse Reactions: Allergies Allergy/AdvReac Type Severity Reaction Status Date / Time acetaminophen [From Percocet] Allergy Unknown Verified 06/02/17 17:17 adhesive tape Allergy Unknown Verified 06/02/17 16:32 atorvastatin calcium * Allergy Hallucinati Verified 06/02/17 17:17 [From Lipitor] ons ezetimibe [From Zetia] Allergy Respiratory Verified 06/02/17 17:17 fenofibrate Allergy Unknown Verified 06/02/17 17:17 Iodinated Contrast- Oral and Allergy Hives Verified 06/02/17 17:17 IV Dye [Iodinated Contrast Media - IV Dye] meperidine [From Demerol] Allergy Unknown Verified 06/02/17 17:17 methadone Allergy Unknown Verified 06/02/17 17:17 niacin Allergy Rash Verified 06/02/17 17:17 oxycodone [From Percocet] Allergy Unknown Verified 06/02/17 17:17 Penicillins Allergy Respiratory Verified 06/02/17 16:32 Kjznwpp-Fai-Vkf Reductase Allergy Unknown Verified 06/02/17 17:17 Inhibitor venom-honey bee Allergy Respiratory Verified 06/02/17 17:17 [bee venom (honey bee)] Review of Systems - Constitutional Constitutional: reports: Fatigue - Eyes Eyes: reports: Vision loss (unchanged from baseline) - Ears, Nose & Throat Ears, Nose & Throat: reports: Postnasal drainage - Cardiovascular Cardiovascular: reports: Lightheadedness, Exertional dyspnea, Decr. exercise tolerance. denies: Chest pain - Respiratory Respiratory: reports: SOB with exertion - Gastrointestinal Gastrointestinal: reports: Diarrhea (improved; loose only 1-2 times), Good appetite. denies: Rectal bleeding, Black stools, Bloody stools, Nausea - Genitourinary Genitourinary: reports: Hematuria - Musculoskeletal Musculoskeletal: reports: Muscle pain, Back pain, Muscle aches, Stiffness, Limited range of motion, Muscle weakness, Assistive devices (using 4WW) - Integumentary Integumentary: reports: Dryness - Neurological Neurological: reports: General weakness, Headache, Dizziness, Memory problems ( worsening), Abnormal gait (is working with PT 2 times a week), Seizures - Psychiatric Psychiatric: reports: Depression, Delusions - Endocrine Endocrine: reports: Diabetes type 2 - Hematologic/Lymphatic Hematologic/Lymphatic: reports: Other (on warfarin for hx of DVT). denies: Anemia - All Other Systems All Other Systems: reports: Reviewed and negative Physical Exam - Vital Signs Temperature: 36.2 C Pulse Rate: 100 Respiratory Rate: 18 Blood Pressure: 94/61 - Physical Exam General Appearance: positive: Mild distress, Anxious Eyes Bilateral: positive: Normal inspection, PERRL ENT: positive: Pharynx nml Neck: positive: Trachea midline, Lymphadenopathy (R) (tender palpation of bilat nodes; mild swelling left greater than right), Lymphadenopathy (L) Cardiovascular: positive: Regular rate & rhythm, Tachycardia Respiratory: positive: Diminished in bases. negative: Wheezes, Rales, Rhonchi Abdomen: positive: Nml bowel sounds, Obese Skin: positive: Pallor Extremities: positive: No pedal edema, Other (patient with diff. getting from sitting to standing; gait painful; multiple back spasms during visit). negative : Full ROM Neurologic/Psychiatric: positive: Oriented x3, Other (STM recall poor; deferred often to for answers; insight into memory decline over last several months) Palliative Care - POLST Patient has POLST: Yes POLST Status: DNR, Limited Interventions Pain: Location (top of head; severe lower back; in "bladder") Tiredness/Fatigue: Severe (7-10) Drowsiness/Sedation: Severe (7-10) Nausea: Moderate (4-6) Depression: Severe (7-10) Anxiety: Severe (7-10) Dyspnea: Severe (7-10) Anorexia: Mild (1-3) Sleep: Variable sleep pattern Constipation: No Feelings of wellbeing/Perceived Quality of Life: Poor, Worsening Performance Status: Patient with functional decline; less able to ambulate now using walker; needs assist with bathing this is new; doing all IADLs patient less able to track things; very frustrated. - Palliative Care Discussion: Patient discouraged and anxious about his continued cognitive decline, sees his QOL as worsening. Is expecting first grandchild in next few weeks, is worried about being more dependent and loosing touch with reality. Neurologist is not currently available, unclear if would benefit from aricept, would consider. Patient with frequent falls, high risk for serious sequella, particularly on the warfarin, unclear when last DVT was, patient thought 3-4 years ago, though with dx of cancer remains high risk and on hormone therapy. Currently is symptom burden is high, trying to find a balance with the medications, concern about medication adherence. Patient does have a POLST, is DNAR/Limited interventions and would not want to be less independent or functional than currently is Impression and Recommendations - Palliative Care Impression: This is a 67 year old gentleman with both progressive cognitive and functional decline, now most recently hospitalized with another fall including concussion. Patient has high symptom burden, worsening quality of life, and remains at high risk for recurrent falls and sequela. Recommendations/Counseling Done: 1. Hypotension adding to fall risk. Patient without LE edema, inst. to decrease 40 mg furosemide to 20 mg daily, and to take b/P prior to taking if less than 100/ to hold. Inst. to take log to appointment to PCP next week for further adjustments. Encouraged adequate fluid intake. 2. Acute on chronic pain. Has residual headache pain, not worsening, neuro checks intact. Inst. if s/s of increased confusion/Alter LOC to return to ED. Neck pain improving, had CT scan with no new findings, patient has stenosis and DJD along whole of spine. Back pain worsening in the context of spasms, if not improved with heat and by next week, review with PCP. No changes to medications , will use current regimen. 3. Mild Cognitive deficits. Encourage if able to follow up with neurologist related to medications. Counseling done on management of STM and deficits at home, using whiteboard, lists, reorientation. 4. Fall risk. Inst. to get tub transfer bench and hand held shower, not to use small bath stall. Inst. to review risks and benefits of ongoing warfarin therapy in the context of fall risk. 5. Advanced care planning. Patient with multiple co-morbidities and high symptom burden, perceived worsening quality of life. Time Spent: 60 minutes with greater than 50% done in counseling for management of symptoms, cogn. deficits, adjustment to worsening QOL, and anticipatory guidance. To follow up with PCP regarding furosemide dosing next week, check BMP, follow up with with urologist hematuria/groin pain, and follow up with neurologist regarding early dementia.
== END 2017-06-05 14:45 | disposition home or self-care (01) ==
LOC: PC 14:44
PROVIDERS: ATTEND Nurse Practitioner Adult Health
DX: Z51.5 Encounter for palliative care (principal); I95.9 Hypotension, unspecified; R41.81 Age-related cognitive decline; Z91.81 History of falling; Z87.828 Personal history of other (healed) physical injury and trauma; Z79.01 Long term (current) use of anticoagulants; C61 Malignant neoplasm of prostate; Z86.718 Personal history of other venous thrombosis and embolism; E11.9 Type 2 diabetes mellitus without complications; G62.9 Polyneuropathy, unspecified; I35.0 Nonrheumatic aortic (valve) stenosis; R56.9 Unspecified convulsions; M62.830 Muscle spasm of back; Z79.891 Long term (current) use of opiate analgesic; R26.0 Ataxic gait; F22 Delusional disorders; R42 Dizziness and giddiness; Z79.4 Long term (current) use of insulin; R53.83 Other fatigue; R06.09 Other forms of dyspnea; R31.9 Hematuria, unspecified; F32.9 Major depressive disorder, single episode, unspecified; M62.81 Muscle weakness (generalized); F41.9 Anxiety disorder, unspecified; Z66 Do not resuscitate; R11.0 Nausea
CPT/HCPCS: 99215

== ENCOUNTER 2017-07-26 14:21 | Emergency (ER) | payer MEDICARE, OTHER ==
[2017-07-26 14:42] VITALS: BP 121/71
--- NOTE | 2017-07-26 15:19 | XRAY Preliminary Report ---
Exam: XR RIBS W/PA CHEST RT IMPRESSION: 1. No obvious rib fractures. 2. Grossly clear lungs. [facility] SITE ID: [id number]
--- NOTE | 2017-07-26 15:21 | XRAY Report ---
EXAM: RIGHT RIB RADIOGRAPHY EXAM DATE: 07/26/2017 03:04 PM. CLINICAL HISTORY: Fall and rib pain . COMPARISON: 09/04/2016. TECHNIQUE: 1 view of the chest and 2 views of the ribs. FINDINGS: Bones: No displaced or obvious nondisplaced rib fractures are appreciated. Lungs: Stable asymmetric elevation of the right hemidiaphragm. No acute infiltrate or consolidation. No pneumothorax or large pleural effusion Mediastinum: Heart and mediastinal contours are unremarkable. Other: Slight convex left scoliotic curvature centered around the thoracolumbar junction. IMPRESSION: 1. No obvious rib fractures. 2. Grossly clear lungs. [facility] Referring Provider Line: [phone] SITE ID: [id number]
[2017-07-26] MEDS ORDERED: HYDROcod/ACETAM 5/325 MG TABLET PO STA (15:45)
--- NOTE | 2017-07-26 15:48 | ED Physician Documentation ---
History of Present Illness - Stated complaint Stated Complaint: FALL RIGHT RIB PAIN - Chief complaint Chief Complaint: General - History obtained from History obtained from: Patient (pt is here for evaluation of right sided rib pain. he states that on thursday he tripped over a piece of equipment and landed on his right side. Has had pain since then, no problems breathing except for the pain. no other injuries form the event.) Review of Systems Unable to obtain: Unresponsive Constitutional: denies: Fever, Chills Cardiac: reports: Other (right chest wall pain). denies: Chest pain / pressure , Palpitations Respiratory: reports: Dyspnea. denies: Cough, Hemoptysis, Wheezing GI: denies: Abdominal Pain, Nausea, Constipation, Hematemesis : denies: Dysuria, Frequency Skin: denies: Rash, Lesions Musculoskeletal: denies: Neck pain, Back pain, Extremity pain, Joint pain Neurologic: denies: Generalized weakness, Headache, Head injury, LOC PD PAST MEDICAL HISTORY - Past Medical History Past Medical History: Yes Cardiovascular: Hypertension, High cholesterol, Coronary artery disease, Peripheral Vascular Disease, Angina, [place], Atrial fibrillation, Valve disorder Respiratory: Shortness of breath, Other Neuro: CVA, TIA, Other Endocrine/Autoimmune: Type 2 diabetes GI: GERD : Incontinence, Kidney stones, Other HEENT: Glaucoma, Other Psych: Anxiety Musculoskeletal: Osteoarthritis, Gout, Chronic back pain Derm: Other - Past Surgical History Past Surgical History: Yes General: Cholecystectomy, Appendectomy Ortho: Knee replacement, Rotator cuff repair, Spine surgery, Other Derm: Skin cancer surgery - Present Medications Home Medications: Ambulatory Orders Medication Instructions Recorded Confirmed Allopurinol 100 mg PO DAILY 07/28/16 07/26/17 Furosemide 20 mg PO DAILY 07/28/16 07/26/17 Methocarbamol 1,500 mg PO BID 07/28/16 07/26/17 Tamsulosin [Flomax] 0.4 mg PO DAILY 07/28/16 07/26/17 Losartan Potassium 25 mg PO DAILY 12/11/16 07/26/17 Insulin Glargine,Hum.rec.anlog 110 unit SUBQ DAILY 04/19/17 07/26/17 [Touleonidas Solostteo] Acetaminophen [Tylenol] 650 mg PO Q4HR PRN tablet 06/03/17 07/26/17 Escitalopram [Lexapro] 10 mg PO DAILY 06/03/17 07/26/17 Nitroglycerin [Nitrostat] 0.4 mg SL Q5M PRN tablet 06/03/17 07/26/17 Pantoprazole Sodium 40 mg PO QDAC 06/03/17 07/26/17 Potassium Chloride [Klor-Con M20] 20 meq PO TIDWM 06/03/17 07/26/17 lamoTRIgine [Lamictal] 200 mg PO BID 06/03/17 07/26/17 Diphenoxylate/Atropine [Lomotil] 1 tab PO BID PRN 06/07/17 07/26/17 HYDROcod/ACETAM 5/325 [Pierce 5/325] 0.5 - 1 tab PO Q4HR PRN 06/07/17 07/26/17 HYDROcod/ACETAM 5/325 [Pierce 5/325] 1 each PO Q6H PRN #10 tablet 07/26/17 - Allergies Allergies/Adverse Reactions: Allergies Allergy/AdvReac Type Severity Reaction Status Date / Time acetaminophen [From Percocet] Allergy Unknown Verified 07/26/17 14:43 adhesive tape Allergy Unknown Verified 07/26/17 14:43 atorvastatin calcium * Allergy Hallucinati Verified 07/26/17 14:43 [From Lipitor] ons ezetimibe [From Zetia] Allergy Respiratory Verified 07/26/17 14:43 fenofibrate Allergy Unknown Verified 07/26/17 14:43 Iodinated Contrast- Oral and Allergy Hives Verified 07/26/17 14:43 IV Dye [Iodinated Contrast Media - IV Dye] meperidine [From Demerol] Allergy Unknown Verified 07/26/17 14:43 methadone Allergy Unknown Verified 07/26/17 14:43 niacin Allergy Rash Verified 07/26/17 14:43 oxycodone [From Percocet] Allergy Unknown Verified 07/26/17 14:43 Penicillins Allergy Respiratory Verified 07/26/17 14:43 Yiktntq-Lrh-Uje Reductase Allergy Unknown Verified 07/26/17 14:43 Inhibitor venom-honey bee Allergy Respiratory Verified 07/26/17 14:43 [bee venom (honey bee)] - Social History Does the pt smoke?: No Smoking Status: Never smoker Does the pt drink ETOH?: No Does the pt have substance abuse?: No - Immunizations Immunizations are current?: Yes - POLST Patient has POLST: Yes PD ED PE NORMAL - Vitals Vital signs reviewed: Yes - General General: Alert and oriented X 3, No acute distress, Well developed/nourished - HEENT HEENT: Atraumatic, Moist mucous membranes - Cardiac Cardiac: RRR, No murmur, No gallop, No rub, Other (right sided chest wall pain ) - Respiratory Respiratory: No respiratory distress, Clear bilaterally - Back Back: No CVA TTP - Derm Derm: Normal color, Warm and dry, No rash, Other (no bruising over the right side of the chest) - Extremities Extremities: No deformity, No tenderness to palpate - Neuro Neuro: Alert and oriented X 3, Normal speech Eye Opening: Spontaneous Motor: Obeys Commands Verbal: Oriented GCS Score: 15 - Psych Psych: Normal mood, Normal affect Results - Vitals Vitals: Vital Signs - 24 hr 07/26/17 14:39 Temperature 36.5 C Heart Rate 87 Respiratory 16 Rate Blood Pressure 121/71 O2 Saturation 95 Oxygen O2 Source Room air - Rads (name of study) right rib series Radiology: Final report received PD MEDICAL DECISION MAKING - ED course Complexity details: d/w patient ED course: no respiratory distress. no fractures on the x-ray but his hx and PE is C/W a rib fracture. he cannot take NSAID's and is on norco 2 times a day. We discussed the concerns for pain control to prevent splinting and possible PNA. he expressed understanding. will give some norco here and have him call his pain specialist on thursday. He expressed understanding. Departure - Departure Disposition: Home, Self Care Clinical Impression: Rib fracture Condition: Good Instructions: ED Fx Rib Follow-Up: Cameron Mcgill MD [Primary Care Provider] - Prescriptions: HYDROcod/ACETAM 5/325 [Pierce 5/325] 1 each PO Q6H PRN #10 tablet PRN Reason: Pain Comments: you need to call your pain specialist tomorrow to discuss further pain control. Take deep breaths every time you think about it. Return to the ER for any new symptoms, worsening pain, fevers, problems breathing or any other new or worsening symptoms,
[2017-07-26] MEDS ORDERED: HYDROcod/ACETAM 5/325 MG TABLET ONE (16:02)
== END 2017-07-26 16:02 | disposition home or self-care (01) ==
LOC: ED 14:21
DX: S22.31XA Fracture of one rib, right side, initial encounter for closed fracture (principal); W01.0XXA Fall on same level from slipping, tripping and stumbling without subsequent striking against object, initial encounter; I10 Essential (primary) hypertension; E11.51 Type 2 diabetes mellitus with diabetic peripheral angiopathy without gangrene; E78.00 Pure hypercholesterolemia, unspecified; I25.10 Atherosclerotic heart disease of native coronary artery without angina pectoris; Z79.4 Long term (current) use of insulin; Z86.73 Personal history of transient ischemic attack (TIA), and cerebral infarction without residual deficits; Z96.659 Presence of unspecified artificial knee joint
CPT/HCPCS: 71101; 99283; A9270

== ENCOUNTER 2017-07-30 14:53 | Outpatient (CLI) | payer MEDICARE, OTHER ==
--- NOTE | 2017-07-30 21:17 | CONSULTATION NOTE ---
Palliative Care Follow Up - Referral Referring Provider: Dr. Al Mensah Time of Visit: [id number] Referral setting: [facility] [place] Referral Reason: Depression - Information Sources Records reviewed: Previous records reviewed History/Review of Systems obtained from: Patient, Family ( Amber at visit) Exam limitations: Clinical condition (STM issues worsening) - History of Present Illness Update Brief HPI Update: This is a 67-year-old gentleman who has multiple serious comorbidities including metastatic prostate cancer status post radiation, currently his Lupron is on hold. He has underlying diabetes with peripheral neuropathy, aortic stenosis, hypertension, history of seizures, cognitive decline, and most recently multiple falls with resulting trauma. Most recently this last week fracture of his right ribs.He has recently discontinued his Coumadin given his frequent falls. He presents today with increasing symptoms of depression, low blood pressure, continued falls. He also has residual head pain from a previous fall and feeling poorly overall. He continues to have signs and symptoms of cognitive decline, escalated pain with right rib fractures, and worsening fatigue. Social History - Living Situation Living arrangement: At home Living Situation: With spouse/s.o. Support System: Reports increasing chaos with daughter new baby and boyfriend living with them as well as son recently displaced by fluids. Has added to the stressors, he also has more difficulty tolerating more environmental input, this increases his confusion. Medications/Allergies - Medications Home Medications: Ambulatory Orders Medication Instructions Recorded Confirmed Allopurinol 100 mg PO DAILY 07/28/16 07/31/17 Furosemide 40 mg PO BID 07/28/16 07/31/17 Methocarbamol 1,500 mg PO BID 07/28/16 07/31/17 Tamsulosin [Flomax] 0.4 mg PO DAILY 07/28/16 07/31/17 Losartan Potassium 25 mg PO DAILY 12/11/16 07/31/17 Insulin Glargine,Hum.rec.anlog 60 - 80 unit SUBQ DAILY 04/19/17 07/31/17 [Mark Ramsey] Acetaminophen [Tylenol] 650 mg PO Q4HR PRN tablet 06/03/17 07/31/17 Escitalopram [Lexapro] 15 mg PO DAILY 06/03/17 07/31/17 Nitroglycerin [Nitrostat] 0.4 mg SL Q5M PRN tablet 06/03/17 07/31/17 Pantoprazole Sodium 40 mg PO QDAC 06/03/17 07/31/17 Potassium Chloride [Klor-Con M20] 20 meq PO BID 06/03/17 07/31/17 lamoTRIgine [Lamictal] 200 mg PO BID 06/03/17 07/31/17 Diphenoxylate/Atropine [Lomotil] 1 - 2 tab PO Q6HR PRN 06/07/17 07/31/17 HYDROcod/ACETAM 5/325 [[place] 5/325] 1 - 2 each PO Q6H PRN 07/31/17 07/31/17 - Allergies Allergies/Adverse Reactions: Allergies Allergy/AdvReac Type Severity Reaction Status Date / Time acetaminophen [From Percocet] Allergy Unknown Verified 07/26/17 14:43 adhesive tape Allergy Unknown Verified 07/26/17 14:43 atorvastatin calcium * Allergy Hallucinati Verified 07/26/17 14:43 [From Lipitor] ons ezetimibe [From Zetia] Allergy Respiratory Verified 07/26/17 14:43 fenofibrate Allergy Unknown Verified 07/26/17 14:43 Iodinated Contrast- Oral and Allergy Hives Verified 07/26/17 14:43 IV Dye [Iodinated Contrast Media - IV Dye] meperidine [From Demerol] Allergy Unknown Verified 07/26/17 14:43 methadone Allergy Unknown Verified 07/26/17 14:43 niacin Allergy Rash Verified 07/26/17 14:43 oxycodone [From Percocet] Allergy Unknown Verified 07/26/17 14:43 Penicillins Allergy Respiratory Verified 07/26/17 14:43 Elqpelu-Enl-Ggr Reductase Allergy Unknown Verified 07/26/17 14:43 Inhibitor venom-honey bee Allergy Respiratory Verified 07/26/17 14:43 [bee venom (honey bee)] Review of Systems - Constitutional Constitutional: reports: Fatigue, Weight stable - Eyes Eyes: reports: Vision loss - Ears, Nose & Throat Ears, Nose & Throat: reports: Hearing loss - Cardiovascular Cardiovascular: reports: Lightheadedness, Decr. exercise tolerance - Respiratory Respiratory: reports: SOB at rest, SOB with exertion, Pleuritic pain (right rib pain from fractures) - Gastrointestinal Gastrointestinal: reports: Diarrhea (with some incontinence; worsening), Poor appetite, Early satiety - Genitourinary Genitourinary: reports: Frequency, Urgency - Musculoskeletal Musculoskeletal: reports: Muscle pain, Back pain, Stiffness, Limited range of motion, Muscle weakness, Joint pain, Assistive devices (uses 4WW for ambulation) - Integumentary Integumentary: reports: Dryness - Neurological Neurological: reports: General weakness, Headache (sustained pain on left side of head since fall several weaks ago), Dizziness - Psychiatric Psychiatric: reports: Depression, Suicidal (no plan; expressing feelings of distress) - Endocrine Endocrine: reports: Diabetes type 2 - Hematologic/Lymphatic Hematologic/Lymphatic: denies: Recurrent infections - All Other Systems All Other Systems: reports: Reviewed and negative Physical Exam - Vital Signs Pulse Rate: 84 Respiratory Rate: 18 O2 Saturation: 97 (ra @ rest) Blood Pressure: 94/67 - Physical Exam General Appearance: positive: Moderate distress Eyes Bilateral: positive: Normal inspection ENT: positive: No signs of dehydration Neck: positive: No JVD, Trachea midline, Stiff neck, Other (elicit dizzyness when tips head back; has known cervical stenosis) Cardiovascular: positive: Regular rate & rhythm Respiratory: positive: Breath sounds nml, Diminished in bases. negative: Wheezes, Rales, Rhonchi Abdomen: positive: Nml bowel sounds, Taut, Obese Skin: positive: Pallor, Bruising Extremities: positive: No pedal edema, Other (Difficulty getting from sitting to standing, needs to bend forward on his walker to relieve pressure on lower back. Poor tolerance of physical activity, only able to ambulate short distances without resting.) Neurologic/Psychiatric: positive: Disoriented to time, Weakness, Depressed mood/ affect Palliative Care - POLST Patient has POLST: Yes POLST Status: DNR, Limited Interventions Pain: Pain worsening, Location (Pain most severe 8 out of 10 in right rib area. Does report some improvement but still quite tender. Exacerbated by twisting or deep breathing. Also reports pain 7 out of 10 on left side of head radiating from back all the way up into the front. Does report this is been severe since fall. Also affected by stressors. Patient has underlying back pain 4 out of 10 with back spasms managed by the methyl carbinol 750 mg 2 tabs twice daily. He is using the hydrocodone at a higher dose with the rib pain using 2 tabs twice daily with 1 tab during the day if it becomes too severe. Patient does get quite distressed and does not like the feeling of the narcotic. ), Comment (She also complains of residual situs pain in his prostate groin area. This is intermittent in nature.) Tiredness/Fatigue: Severe (7-10) Drowsiness/Sedation: Severe (7-10) Nausea: None Depression: Severe (7-10), Suidical ideation (Patient expressing increased feelings of hopelessness and helplessness. This is been exacerbated by his loss of control, his inability to participate in his regular activities which bring him gar[place] including gardening, had seen, working on cars. He has had a period of suicidal ideation in the past prior to his diagnosis with prostate cancer with escalating pain. He denies any plan of action, reports he just wants to see [place], and be out of his misery. He is also quite frightened with his ongoing to cognitive deficits. He is having many more stressors with increased chaos in his house is for extra people into dogs. He is quite irritable per his . And gets quite stubborn when he is having his memory problems. He is asking about increasing his antidepressant. He is willing to the see the medical palliative care social science instructor. Danielle will reach out if she has any further concerns and was given the suicide mental health crisis hotline. ) Dyspnea: None Anorexia: Moderate (4-6) Sleep: Variable sleep pattern Constipation: No Feelings of wellbeing/Perceived Quality of Life: Poor, Worsening Performance Status: Patient using front wheeled 4 wheeled walker. Had to put PT on hold with the recent rib fractures. Is feeling like he could participate again. He is able to self feed, needs only occasional assistance with bathing, is mostly limited by pain and fatigue as far as his ambulation and functional status. - Palliative Care Discussion: Please see discussion on depression above. Patient is feeling somewhat overwhelmed with his current quality of life. 1 of the overriding issues is his ongoing short-term memory issues and cognitive decline. He did ask in the context of end-of-life planning or further deterioration about dementia and end- of-life. Reassured if his wishes were thought to prolong suffering or his quality of life was not deemed is acceptable for his standards and in agreement with his , certainly could forego any treatment of acute illnesses, and focus on comfort measures only. Patient does have multiple underlying comorbidities that do impact his prognosis, including his sequela of frequent falls. Patient is quite pragmatic and practical, just does not want to be further dependent or burden to his family. Reassurance and questions were addressed as far as end-of-life planning. Impression and Recommendations - Palliative Care Impression: This is a 67-year-old gentleman with multiple comorbidities that impact his overall quality of life, as well as high symptom burden. He does have an acute exacerbation of his pain related to recent rib fractures, residual from previous fall with head pain, and underlying back pain. He presents today with an exacerbation of depression and expression of suicidal ideation. He perceives his overall quality of life as worsening. Recommendations/Counseling Done: 1. Acute on chronic pain. Her right rib fractures, encouraged patient to continue with deep breathing exercises to prevent pneumonia. Because of patient 's high level of fatigue recommended as healed cut back to his baseline which is usually around 2-3 tabs of hydrocodone a day. Also been patient able to tolerate, recommended return to PT. Encouraged heat for neck and cervical stenosis pain. Rx provided for hydrocodone. 2. Diarrhea, chronic. Is using the Lomotil 2-3 times a day. Is quite embarrassed as does have incontinence at time. I suspect this is a residual side effect of the radiation complicated by his diabetes. Have trialed Metamucil without any effect. Lomotil effective as long as remembers to take it. Rx provided. 3.Depression exacerbation with suicidal ideation. I did increase escitalopram to 15 mg. Message left for her primary care provider regarding concerns as well as titration. Patient agreed to tell if worsening symptoms, suicide mental health crisis hotline #8 [phone] given to Danielle. Patient did agree to see palliative care social science instructor regarding counseling for her stressors and depression. Did discuss on ways to limit her decrease stressors in the home setting, particularly since increasing environmental chaos exacerbates his distress with his cognitive decline. Normalized feelings of grief and loss regarding concerns of increasing loss of control, being a burden on his family, and worries about ongoing dementia. 4. Frequent falls. Oncologist did hold Tasha hoping that may improve his muscle mass. Did instruct patient as soon as able to tolerate to return to physical therapy. Recommended [facility], will have volunteer patient representative call and answer questions. Patient continues with residual injuries from frequent falls , currently off Coumadin, no further symptoms or signs of seizure disorder at this point in time. 5. Mild cognitive deficits. These do appear to be worsening per description of patient and . Most recent scanCT of brain without contrast did show cerebral atrophy. But at this point no evidence of metastatic disease. They are trying to do some compensatory measures, patient can get quite stubborn regarding memory issues at home. exhibiting some caregiver fatigue and distress as well. 6. Diabetes. Patient currently on Tuojeo, insurance does not cover and/or co- pay too much. Instructed to follow up with Dr. Mcgill as can transition to Lantus is needed. 7. Hypotension. Patient does have intermittent dizziness. He reports his PCP recently increased his blood pressure medicine. Neither he or his are able to really confirm the medication list. Instructed to resume daily blood pressures twice a day. If it remains low to contact PCP, otherwise will see myself in 2 weeks. As does not have a follow-up appointment until August. This would be in the context of following up on his depression as well. 8. Advanced care planning. Patient does have a [employer] [address] in place. Continues to verbalize his wishes of not prolonging suffering, being a burden, and recognizing pragmatically his high risk of an end-of-life event. Patient does have multiple core mobilities and currently his metastatic prostate cancer is in control. His biggest risk factor is the sequela of his falls. According to get the index which is a prognostic test on 1 year mortality for community dwelling adults age 65 and near older. It measures risk for all causes 1 year mortality. Risk calculators cannot predict the future for any one individual but risk calculator is given an estimate of how many people with similar risk factors will live and but they cannot identify who will live and he will . His score is a 9 which puts him at a risk of 1 year mortality of 36.5% Time Spent: 60 minutes with greater than 50% of this done in counseling regarding depression referral to suicide line and medical palliative care social science instructor as far as coordination of care and anticipatory guidance
== END 2017-07-30 14:54 | disposition home or self-care (01) ==
LOC: PC 14:53
PROVIDERS: ATTEND Nurse Practitioner Adult Health
DX: Z51.5 Encounter for palliative care (principal); E11.42 Type 2 diabetes mellitus with diabetic polyneuropathy; I10 Essential (primary) hypertension; C61 Malignant neoplasm of prostate; C77.5 Secondary and unspecified malignant neoplasm of intrapelvic lymph nodes; I35.0 Nonrheumatic aortic (valve) stenosis; Z91.81 History of falling; F32.9 Major depressive disorder, single episode, unspecified; S22.41XD Multiple fractures of ribs, right side, subsequent encounter for fracture with routine healing; Z79.4 Long term (current) use of insulin; Z66 Do not resuscitate; R45.851 Suicidal ideations; R51 Headache; G89.21 Chronic pain due to trauma; Z79.891 Long term (current) use of opiate analgesic; M48.02 Spinal stenosis, cervical region; K52.9 Noninfective gastroenteritis and colitis, unspecified; Z92.3 Personal history of irradiation; R41.89 Other symptoms and signs involving cognitive functions and awareness; G31.9 Degenerative disease of nervous system, unspecified; I95.9 Hypotension, unspecified
CPT/HCPCS: 99215

== ENCOUNTER 2017-08-13 14:52 | Outpatient (CLI) | payer MEDICARE, OTHER ==
--- NOTE | 2017-08-13 17:23 | CONSULTATION NOTE ---
Palliative Care Follow Up - Referral Referring Provider: Dr. Al Mensah Time of Visit: [id number] Referral setting: [facility] [place] Referral Reason: Depression - Information Sources History/Review of Systems obtained from: Patient, Family (Amber , present at visit) Exam limitations: Clinical condition (patient with STM deficits) - History of Present Illness Update Brief HPI Update: This is a 67-year-old gentleman has multiple serious comorbidities including metastatic prostate cancer status post radiation, with his current Lupron on hold. He does have aortic stenosis and just recently saw the fuel attendant, I do not have any documentation, but his understanding is his echo showed significant decline of his aortic valve. He is most likely going to get surgery , and was told that many of his symptoms particularly the fatigue, variable blood pressures, syncopal episodes, and even possibly his "seizures" may be as a result of poorly functioning valve. He presents with high anxiety regarding this. He had course is a high surgical risk. But given the current impact on his quality of life, much of the discussion today was made in regarding weighing the benefits and burdens of moving forward with this. He is at high risk for stroke and is aware of this, and thus has much anxiety. He has had no further falls since her last visit, his pain is improving as attributed to his right rib fractures, he does though continue to have residual pain in the back of his neck, and with extension of his neck symptoms of dizziness and near syncope. His depression is much improved on the increased dose of the escitalopram, and denies any suicidality today. Social History - Living Situation Living arrangement: At home Living Situation: With spouse/s.o., With family (Daughter, boyfriend, and grandson living in basement; somewhat choatic) Medications/Allergies - Medications Home Medications: Ambulatory Orders Medication Instructions Recorded Confirmed Allopurinol 100 mg PO DAILY 07/28/16 07/31/17 Furosemide 40 mg PO BID 07/28/16 07/31/17 Methocarbamol 1,500 mg PO BID 07/28/16 07/31/17 Tamsulosin [Flomax] 0.4 mg PO DAILY 07/28/16 07/31/17 Losartan Potassium 25 mg PO DAILY 12/11/16 07/31/17 Insulin Glargine,Hum.rec.anlog 60 - 80 unit SUBQ DAILY 04/19/17 07/31/17 [Mark Ramsey] Acetaminophen [Tylenol] 650 mg PO Q4HR PRN tablet 06/03/17 07/31/17 Escitalopram [Lexapro] 15 mg PO DAILY 06/03/17 07/31/17 Nitroglycerin [Nitrostat] 0.4 mg SL Q5M PRN tablet 06/03/17 07/31/17 Pantoprazole Sodium 40 mg PO QDAC 06/03/17 07/31/17 Potassium Chloride [Klor-Con M20] 20 meq PO BID 06/03/17 07/31/17 lamoTRIgine [Lamictal] 200 mg PO BID 06/03/17 07/31/17 Diphenoxylate/Atropine [Lomotil] 1 - 2 tab PO Q6HR PRN 06/07/17 07/31/17 HYDROcod/ACETAM 5/325 [[place] 5/325] 1 - 2 each PO Q6H PRN 07/31/17 07/31/17 - Allergies Allergies/Adverse Reactions: Allergies Allergy/AdvReac Type Severity Reaction Status Date / Time acetaminophen [From Percocet] Allergy Unknown Verified 07/26/17 14:43 adhesive tape Allergy Unknown Verified 07/26/17 14:43 atorvastatin calcium * Allergy Hallucinati Verified 07/26/17 14:43 [From Lipitor] ons ezetimibe [From Zetia] Allergy Respiratory Verified 07/26/17 14:43 fenofibrate Allergy Unknown Verified 07/26/17 14:43 Iodinated Contrast- Oral and Allergy Hives Verified 07/26/17 14:43 IV Dye [Iodinated Contrast Media - IV Dye] meperidine [From Demerol] Allergy Unknown Verified 07/26/17 14:43 methadone Allergy Unknown Verified 07/26/17 14:43 niacin Allergy Rash Verified 07/26/17 14:43 oxycodone [From Percocet] Allergy Unknown Verified 07/26/17 14:43 Penicillins Allergy Respiratory Verified 07/26/17 14:43 Jeslqxz-Irh-Hns Reductase Allergy Unknown Verified 07/26/17 14:43 Inhibitor venom-honey bee Allergy Respiratory Verified 07/26/17 14:43 [bee venom (honey bee)] Review of Systems - Constitutional Constitutional: reports: Fatigue, Poor appetite, Weight stable - Eyes Eyes: reports: Vision loss - Ears, Nose & Throat Ears, Nose & Throat: reports: Hearing loss - Cardiovascular Cardiovascular: reports: Lightheadedness (when bends head back; causes severe dizzyness), Exertional dyspnea, Decr. exercise tolerance - Respiratory Respiratory: reports: SOB at rest (at times), SOB with exertion - Gastrointestinal Gastrointestinal: reports: Diarrhea (residual from radiation; loose watery stool 3-4 x day; using lomotil 2 tabs BID), Nausea, Early satiety - Genitourinary Genitourinary: reports: Frequency, Urgency, Other (cystitis since radiation) - Musculoskeletal Musculoskeletal: reports: Muscle pain (RLS "jumping"), Back pain (actually improved after last fall "my chiropractic treatment"), Muscle aches, Stiffness, Limited range of motion, Muscle weakness, Joint pain, Assistive devices (uses rolling 4WW) - Integumentary Integumentary: reports: Dryness - Neurological Neurological: reports: General weakness, Memory problems (fluctuating from fairly severe confusion to just word finding; better than last time we met) - Psychiatric Psychiatric: reports: Depression (both and patient feel the increase in medication has helped), Anxiety (recent visit with fuel attendant distressing; worried about implications of surgery), Aggitation. denies: Suicidal - Endocrine Endocrine: reports: Diabetes type 2 - All Other Systems All Other Systems: reports: Reviewed and negative Physical Exam - Vital Signs Temperature: 98.0 C Pulse Rate: 83 Respiratory Rate: 18 O2 Saturation: 94 (ra@ rest) Blood Pressure: 117/77 - Physical Exam General Appearance: positive: Mild distress, Anxious Eyes Bilateral: positive: Normal inspection ENT: positive: No signs of dehydration Neck: positive: No JVD, Trachea midline, Stiff neck Cardiovascular: positive: Regular rate & rhythm, Diastolic murmur Respiratory: positive: Diminished in bases. negative: Rales, Rhonchi Abdomen: positive: Nml bowel sounds, Distended, Taut Skin: positive: Pallor, Dryness Extremities: positive: No pedal edema Neurologic/Psychiatric: positive: Oriented x3, Mood/affect nml, Weakness Palliative Care - POLST Patient has POLST: Yes POLST Status: DNR, Limited Interventions Pain: Pain improved, Location (right rib pain from fracture point tenderness only; 8/10 back/leg pain at worst; using hydrocodone 5 mg/325 mg APAP up to four tabs a day but feels much improved) Tiredness/Fatigue: Severe (7-10) Drowsiness/Sedation: Severe (7-10) Nausea: Mild (1-3) Depression: Severe (7-10) Anxiety: Severe (7-10) Dyspnea: Severe (7-10) (worsening; no cough; with activity sometimes at rest) Anorexia: Moderate (4-6) Sleep: Variable sleep pattern Feelings of wellbeing/Perceived Quality of Life: Poor, Worsening Performance Status: Patient has difficulty tolerating going up stairs, or walking uphill. Any exercise or tolerance of activity is quite poor right now. He was told to remain fairly sedentary and not put himself at further risk for falls. His does assist him some with his ADLs. - Palliative Care Discussion: Much of the discussion today focused on weighing benefits and burdens of moving forward with his surgical options, he is quite anxious as far as the implications and recovery. He is also quite anxious relating to the risk of stroke. He does perceive though his current quality of life is much impacted, and would not find this acceptable long-term, and if there are chance for improvement particularly around his cognitive status he would very much consider moving forward. He does have an appointment on September 04 for further planning, encouraged to write down questions so they can address any further concerns. Impression and Recommendations - Palliative Care Impression: This is a 67-year-old gentleman who now faces a serious decision whether to move forward on aortic valve replacement, and his understanding this would improve his quality of life, but quite anxious about the risk versus the benefit. His pain is much improved today, his depression better controlled, but presents with many stressors. Recommendations/Counseling Done: 1. Aortic stenosis, with the deterioration of atrial valve. Palliative care conversation focused on quality of life issues, risk versus benefits, and addressing anxiety. 2. Diabetes type 2, moderately controlled. He did follow up with his primary care physician, unable to find a cheaper alternative, does have a $200 co-pay. This is quite stressful. We did discuss though in the context of impending surgery, important to have his blood sugars controlled as best as possible, this would impact his outcome. Encouraged to follow up with the manufacture, as well as to consider investing in his health at this point in time. 3. Depression, patient denies suicidal ideation today. There is somewhat of a relief that there is some underlying etiology for his worsening quality and fatigue. He still has intermittent confusion, palliative care social media senior associate is trying to set up appointment, he had some paranoia and on realistic expectations as far as what that might look like. These fears were addressed, will help make arrangements to meet in the clinic. 4. Diarrhea, chronic use. Lomotil is currently managing this, though is still problematic for patient I suspect this is again a residual from the radiation. 5. Cognitive deficits. He has had intermittent episodes of agitation and paranoia. Today is a little bit clear. has realistic expectations as far as most likely not to solve the underlying problem, but both patient and hopeful of improvement if follows through on surgery. 6. Acute on chronic pain. Patient managing with twice daily dosing of Vicodin , pain has been improving with healing of ribs. We did discuss in the context of lessening back spasms, and cognitive deficits, but we will go ahead and titrate down his methyl carbinol. Instructions were given to decrease by half tab every 4-5 days. Patient currently on 2 tabs twice daily. If he is to have any symptoms or side effects of withdrawal, he is to give a call or to slow down the taper. 7. Hypotension. Patient's blood pressures much improved today. He still continues with intermittent dizziness, fuel attendant attributes this to his and stable aortic stenosis at this point in time. Currently they are not taking any further blood pressures, did review though if patient with persistent dizziness or symptoms to restart. Still may need his medications adjusted. Time Spent: 60 minutes with greater than 50% of this done in counseling regarding depression , palliative care conversation regarding impending decisions regarding feeding surgery, and management of pain and anticipatory guidance
== END 2017-08-13 14:53 | disposition home or self-care (01) ==
LOC: PC 14:52
PROVIDERS: ATTEND Nurse Practitioner Adult Health
DX: Z51.5 Encounter for palliative care (principal); I35.0 Nonrheumatic aortic (valve) stenosis; E11.9 Type 2 diabetes mellitus without complications; F32.9 Major depressive disorder, single episode, unspecified; K52.1 Toxic gastroenteritis and colitis; T50.995D Adverse effect of other drugs, medicaments and biological substances, subsequent encounter; R41.89 Other symptoms and signs involving cognitive functions and awareness; G89.29 Other chronic pain; R07.81 Pleurodynia; M54.2 Cervicalgia; I95.9 Hypotension, unspecified; C61 Malignant neoplasm of prostate; Z79.4 Long term (current) use of insulin; R53.83 Other fatigue; M62.81 Muscle weakness (generalized); F41.9 Anxiety disorder, unspecified; R06.00 Dyspnea, unspecified; Z66 Do not resuscitate
CPT/HCPCS: 99215

== ENCOUNTER 2017-10-20 14:00 | Outpatient (CLI) | payer MEDICARE, OTHER ==
[2017-10-20 14:28] LABS: HB2 TOTAL 13.5 g/dL; HEMOGLOBIN A1C 0.89 g/dL; HEMOGLOBIN A1C % 8.2 % (4.6-6.2)
== END 2017-10-20 14:01 | disposition home or self-care (01) ==
LOC: LAB 14:00
PROVIDERS: ATTEND Family Medicine
DX: I10 Essential (primary) hypertension (principal); R56.9 Unspecified convulsions; E78.2 Mixed hyperlipidemia; E11.9 Type 2 diabetes mellitus without complications; F41.8 Other specified anxiety disorders; M10.00 Idiopathic gout, unspecified site
CPT/HCPCS: 36415; 83036

== ENCOUNTER 2017-10-20 14:13 | Outpatient (CLI) | payer MEDICARE, OTHER ==
--- NOTE | 2017-10-21 06:30 | CONSULTATION NOTE ---
Palliative Care Follow Up - Referral Referring Provider: Dr. Al Mensah Time of Visit: VISIT DAY 10/20/2017 [id number] [place] [facility] [place] Reason: Anxiety/Aortic Stenosis - Information Sources Records reviewed: Previous records reviewed History/Review of Systems obtained from: Patient, Family ( Amber present for visit) Exam limitations: Clinical condition (Patient with continued short-term memory issues and intermittent confusion.) - History of Present Illness Update Brief HPI Update: This is a 67-year-old gentleman with multiple serious comorbidities, including metastatic prostate cancer status post radiation, stenosis with pending TAVR surgery this month, recent stent placement during angiogram, absent seizures, depressive disorder, diabetes, and chronic pain syndrome related to related to long-term degenerative joint disorder as well as lumbar/cerivical stenosis. His most acute pain though currently, is with defecating, he has had long-term diarrhea post radiation. But has had increased discomfort, he describes is aching burning searing pain. It is relieved with decreased rectal pressure. Denies any signs or symptoms of bleeding, continues to need Lomotil 3-4 times a day. For his chronic pain syndrome he has titrated off his methocarbamol, but continues on hydrocodone 3/325 mg APAP about 4-5 per day. Social History - Living Situation Living arrangement: At home Living Situation: With spouse/s.o., With family (Patient's daughter and his new grandson are currently living with them, they are shouldering most of the responsibilities for care of the child. This is been both pleasure and stressor.) Medications/Allergies - Medications Home Medications: Ambulatory Orders Medication Instructions Recorded Confirmed Allopurinol 100 mg PO DAILY 07/28/16 10/21/17 Furosemide 40 mg PO DAILY 07/28/16 10/21/17 Tamsulosin [Flomax] 0.4 mg PO DAILY 07/28/16 10/21/17 Losartan Potassium 25 mg PO DAILY 12/11/16 10/21/17 Acetaminophen [Tylenol] 650 mg PO Q4HR PRN tablet 06/03/17 10/21/17 Escitalopram [Lexapro] 20 mg PO DAILY 06/03/17 10/21/17 Nitroglycerin [Nitrostat] 0.4 mg SL Q5M PRN tablet 06/03/17 10/21/17 Pantoprazole Sodium 40 mg PO QDAC 06/03/17 10/21/17 Potassium Chloride [Klor-Con M20] 20 meq PO TID 06/03/17 10/21/17 lamoTRIgine [Lamictal] 200 mg PO BID 06/03/17 10/21/17 Diphenoxylate/Atropine [Lomotil] 1 - 2 tab PO Q6HR PRN 06/07/17 10/21/17 HYDROcod/ACETAM 5/325 [[place] 5/325] 1 - 2 each PO Q6H PRN 07/31/17 10/21/17 Aspirin 81 mg PO DAILY 10/21/17 10/21/17 Clopidogrel [Plavix] 75 mg PO DAILY 10/21/17 10/21/17 Insulin Glargine [Lantus Solostar] 80 units SUBQ DAILY 10/21/17 10/21/17 - Allergies Allergies/Adverse Reactions: Allergies Allergy/AdvReac Type Severity Reaction Status Date / Time acetaminophen [From Percocet] Allergy Unknown Verified 07/26/17 14:43 adhesive tape Allergy Unknown Verified 07/26/17 14:43 atorvastatin calcium * Allergy Hallucinati Verified 07/26/17 14:43 [From Lipitor] ons ezetimibe [From Zetia] Allergy Respiratory Verified 07/26/17 14:43 fenofibrate Allergy Unknown Verified 07/26/17 14:43 Iodinated Contrast- Oral and Allergy Hives Verified 07/26/17 14:43 IV Dye [Iodinated Contrast Media - IV Dye] meperidine [From Demerol] Allergy Unknown Verified 07/26/17 14:43 methadone Allergy Unknown Verified 07/26/17 14:43 niacin Allergy Rash Verified 07/26/17 14:43 oxycodone [From Percocet] Allergy Unknown Verified 07/26/17 14:43 Penicillins Allergy Respiratory Verified 07/26/17 14:43 Elonjbh-Iss-Sgf Reductase Allergy Unknown Verified 07/26/17 14:43 Inhibitor venom-honey bee Allergy Respiratory Verified 07/26/17 14:43 [bee venom (honey bee)] Review of Systems - Constitutional Constitutional: reports: Fatigue, Weight loss (247) - Eyes Eyes: reports: Vision loss - Ears, Nose & Throat Ears, Nose & Throat: reports: Hearing loss - Cardiovascular Cardiovascular: reports: Lightheadedness, Syncope (no falls but "wall slides"), Exertional dyspnea, Decr. exercise tolerance. denies: Chest pain - Respiratory Respiratory: reports: Cough (dry cough;), SOB with exertion - Gastrointestinal Gastrointestinal: reports: Abdominal distention, Diarrhea, Early satiety. denies: Nausea - Genitourinary Genitourinary: reports: Incontinence - Musculoskeletal Musculoskeletal: reports: Back pain, Muscle aches, Stiffness, Limited range of motion, Muscle weakness, Assistive devices (uses 4WW for ambulation) - Integumentary Integumentary: reports: Dryness - Neurological Neurological: reports: General weakness, Memory problems (worsening; good in AM ; sleeping with frequent naps; confusion in evening) - Psychiatric Psychiatric: reports: Depression (had escalated again; PCP increased to 20 mg feels it helped), Anxiety (pending surgery; has high expectations; Perserverating on "cow vs pig" valve) - Endocrine Endocrine: reports: Diabetes type 2 - Hematologic/Lymphatic Hematologic/Lymphatic: reports: Other (off coumadin; now plavix/ASA). denies: Recurrent infections - All Other Systems All Other Systems: reports: Reviewed and negative Physical Exam - Vital Signs Pulse Rate: 81 Respiratory Rate: 18 O2 Saturation: 95 Blood Pressure: 99/68 - Physical Exam General Appearance: positive: Mild distress, Anxious Eyes Bilateral: positive: Conjunctivae nml, No scleral icterus ENT: positive: No signs of dehydration Neck: positive: No JVD, Trachea midline, Stiff neck Cardiovascular: positive: Regular rate & rhythm, Systolic murmur Respiratory: positive: Diminished in bases. negative: Wheezes, Rales, Rhonchi Abdomen: positive: Non-tender, Soft, Nml bowel sounds, Taut (bulges to left), Obese Skin: positive: Pallor, Dryness Extremities: positive: No pedal edema, Other (difficulty walking;) Neurologic/Psychiatric: positive: Mood/affect nml, Disoriented to time, Weakness Palliative Care - POLST Patient has POLST: Yes POLST Status: DNR, Selective Treatment Pain: Pain worsening, Location (rectal vault; worsens with bowel movement), Severity (8/10), Comment (Patient expressing desire to wean off of hydrocodone. reports patient actually clear when he is not in severe pain and taking his medications on a regular basis. We did discuss in the context of his impending surgery, to continue if he wanted to decrease to from 5-4 but to await until recovery. Patient did get CT scans, will follow up with Dr. Mensah at [facility] if sheds any light on rectal pain.) Tiredness/Fatigue: Severe (7-10) Drowsiness/Sedation: Severe (7-10) Nausea: None Depression: Moderate (4-6) Anxiety: Moderate (4-6) Dyspnea: Severe (7-10) Anorexia: Mild (1-3) Sleep: Sleeps well Constipation: No Feelings of wellbeing/Perceived Quality of Life: Poor, Worsening Performance Status: Patient only able to tolerate ambulating short distances, given his cardiac status has been encouraged to limit activity particularly related to his fall risk and syncopal episodes. Patient uses 4 wheeled walker for longer distances , otherwise "furniture walks". assists with set up of ADLs and provides meal prep. - Palliative Care Discussion: Discussion included patient's depressive symptoms, his cognitive decline and frustration with this, as well as his lack of ability to drive. wanting support regarding this, did instruct patient is not safe for him to drive given his current cognitive changes, absence seizures, as well as syncopal episodes. Patient has high expectations as far as outcome of surgery, perceives his cognitive deficits are going to improve, as well as his functional status and tolerance of activity. I did try to reframe goal is to improve quality of life , quantity of life but may or may not improve the severity of his symptom burden. is fearful that patient will feel quite let down, patient is perseverating about which valve. We did discuss in the context of allowing his experts to make appropriate recommendations. Patient is quite anxious regarding the risk, patient is at high risk for stroke, or further cognitive decline. Patient feels he has no other choice other than proceed, as he has continued to deteriorate over the last several months. Did encourage if opportunity was presented, to take advantage of any rehab time or support, as Danielle definitely has her hands full already. Impression and Recommendations - Palliative Care Impression: This is a 67-year-old gentleman who is now faces difficult risk as he goes into a new surgery at TAVR for his aortic stenosis, is hoping the outcome will be improved quantity as well as quality of life. He is quite anxious and has had an exacerbation of his depression. Patient continues with high symptom burden of fatigue, depression, anxiety, and acute on chronic pain. Palliative care continues to provide support for symptom management and processing of depression and anxiety Recommendations/Counseling Done: 1. Rectal pain. Suspect this is a jail side effect of radiation therapy as well as his chronic diarrhea, but will follow-up regarding most recent CT scan. After his current surgery, may benefit from further workup regarding this. Will follow up with Dr. Mensah regarding his experience and recommendations 2. Acute on chronic pain. Patient needing his Vicodin about 4-5 times a day to manage his rectal pain as well as his chronic back pain. Patient requesting to titrate off, agreed can revisit this after his surgery. feels he does better with his pain medication, he is clear, and less stressed regarding the severity of his pain. Patient with his cognitive decline, has more difficulty processing information, having recall regarding symptoms, as well as insight into his own behaviors. 3. Depression. Patient denies suicidal ideation today, has not been able to follow up with palliative care social science professor will defer this for now. He has had some ongoing paranoia, currently is focused on his upcoming surgery. 4. Hypotension. Patient reports his blood pressures have been fluctuating is currently on decreased doses of furosemide. Will need to readdress management after his surgery, he will be following up with cardiology regarding this. 5. Neuro cognitive deficits. These appear to be worsening, does appear to have some distress relating to this, but insight into patient's decline. They are hopeful that will be some improvement with surgery, concern of course for worsening with anesthesia exposure. 6. Chronic diarrhea. Patient ran out of his Lomotil and had recurrence. He has been able to control this with about 3-4 times a day dosing. It is not influenced by intake. Denies any bleeding or bloody stools. 7 anxiety. Patient does present with appropriate anxiety regarding impending procedure. Counseling for support and normalizing feelings of concern. Patient follow-up with Dr. Santiago regarding prostate cancer and Lupron shot, is feeling somewhat overwhelmed with all his recent appointments. Agreed would follow up at point things have settled down, or if any acute symptom management needs arise. Time Spent: 45 minutes with greater than 50% of this done in counseling regarding anxiety and depression anticipatory guidance redirection as far as framing realistic expectations prescriptions provided for hydrocodone and Lomotil
== END 2017-10-20 14:14 | disposition home or self-care (01) ==
LOC: PC 14:13
PROVIDERS: ATTEND Nurse Practitioner Adult Health
DX: Z51.5 Encounter for palliative care (principal); G89.29 Other chronic pain; K62.89 Other specified diseases of anus and rectum; M54.9 Dorsalgia, unspecified; F32.9 Major depressive disorder, single episode, unspecified; I95.9 Hypotension, unspecified; R41.89 Other symptoms and signs involving cognitive functions and awareness; K52.0 Gastroenteritis and colitis due to radiation; C61 Malignant neoplasm of prostate; Z95.1 Presence of aortocoronary bypass graft; E11.9 Type 2 diabetes mellitus without complications; I35.0 Nonrheumatic aortic (valve) stenosis; R06.00 Dyspnea, unspecified; F41.9 Anxiety disorder, unspecified; M62.81 Muscle weakness (generalized); Z79.4 Long term (current) use of insulin; Z79.891 Long term (current) use of opiate analgesic; Z66 Do not resuscitate
CPT/HCPCS: 99215

== ENCOUNTER 2017-10-30 11:28 | Outpatient (CLI) | payer MEDICARE, OTHER ==
[2017-10-30 11:55] LABS: HGB - HEMOGLOBIN 11.5 g/dL (14.0-18.0); MEAN CORPUSCULAR HEMOGLOBIN 27.8 pg (27.0-31.0); MEAN CORPUSCULAR VOLUME 84.2 fL (80.0-94.0); MEAN PLATELET VOLUME 6.7 fL (7.4-11.4); RED BLOOD COUNT 4.14 10^6/uL (4.70-6.10); RED CELL DISTRIBUTION WIDTH 15.6 % (12.0-15.0); WHITE BLOOD COUNT 7.1 x10^3/uL (4.8-10.8)
[2017-10-30 12:00] LABS: INR 1.1 (0.8-1.2); PT - PROTHROMBIN TIME 12.1 secs (9.9-12.6)
[2017-10-30 12:06] LABS: CALCIUM 10.3 mg/dL (8.5-10.3); CREATININE 1.3 mg/dL (0.6-1.2)
[2017-10-30 12:08] LABS: BILIRUBIN,URINE NEGATIVE (NEGATIVE); GLUCOSE, URINE (UA) NEGATIVE (NEGATIVE); KETONES,URINE (UA) NEGATIVE (NEGATIVE); LEUKOCYTE ESTERASE, URINE NEGATIVE (NEGATIVE); NITRITE,URINE NEGATIVE (NEGATIVE); OCCULT BLOOD,URINE MODERATE (NEGATIVE); PH,URINE 5.5 PH (5.0-7.5); PROTEIN,URINE NEGATIVE (NEGATIVE); UROBILINOGEN,URINE 0.2 (NORMAL) E.U./dL (NORMAL)
[2017-10-30 12:32] LABS: BACTERIA,URINE None Seen /HPF (None Seen); CLARITY,URINE CLEAR (CLEAR); RBC,URINE 0-5 /HPF (0-5); SQUAMOUS EPITHELIAL CELL,UR FEW Squamous (<= Few)
== END 2017-10-30 11:29 | disposition home or self-care (01) ==
LOC: LAB 11:28
PROVIDERS: ATTEND Nurse Practitioner
DX: Z01.818 Encounter for other preprocedural examination (principal); I35.0 Nonrheumatic aortic (valve) stenosis
CPT/HCPCS: 36415; 80048; 81001; 85610; 87077; 87086

== ENCOUNTER 2017-11-13 13:17 | Outpatient (CLI) | payer MEDICARE, OTHER ==
[2017-11-13 13:40] LABS: HGB - HEMOGLOBIN 7.7 g/dL (14.0-18.0); MEAN CORPUSCULAR HEMOGLOBIN 28.1 pg (27.0-31.0); MEAN CORPUSCULAR HGB CONC 32.4 g/dL (32.0-36.0); MEAN CORPUSCULAR VOLUME 86.7 fL (80.0-94.0); MEAN PLATELET VOLUME 6.8 fL (7.4-11.4); RED BLOOD COUNT 2.74 10^6/uL (4.70-6.10); RED CELL DISTRIBUTION WIDTH 16.4 % (12.0-15.0); WHITE BLOOD COUNT 5.6 x10^3/uL (4.8-10.8)
[2017-11-13 13:52] LABS: CALCIUM 9.7 mg/dL (8.5-10.3); CREATININE 1.2 mg/dL (0.6-1.2)
== END 2017-11-13 13:18 | disposition home or self-care (01) ==
LOC: LAB 13:17
PROVIDERS: ATTEND Specialist
DX: Z95.2 Presence of prosthetic heart valve (principal); E78.5 Hyperlipidemia, unspecified; Z68.42 Body mass index [BMI] 45.0-49.9, adult; K66.1 Hemoperitoneum; I25.119 Atherosclerotic heart disease of native coronary artery with unspecified angina pectoris; I10 Essential (primary) hypertension; D62 Acute posthemorrhagic anemia
CPT/HCPCS: 36415; 80048

== ENCOUNTER 2017-11-13 20:54 | Outpatient (CLI) | payer MEDICARE, OTHER | END 2017-11-13 20:55 | disposition critical access hospital (66) | LOC: EMS 20:54 | PROVIDERS: ATTEND Surgery | DX: R40.20 Unspecified coma (principal); R51 Headache; R10.30 Lower abdominal pain, unspecified | CPT/HCPCS: A0425; A0427 ==

== ENCOUNTER 2017-11-13 20:57 | Emergency (ER) | payer MEDICARE, OTHER ==
[2017-11-13 21:30] LABS: BASOPHILS % (AUTO) 0.8 %; EOSINOPHILS # (AUTO) 0.1 10^3/uL (0.0-0.7); EOSINOPHILS % (AUTO) 2.3 %; HGB - HEMOGLOBIN 7.7 g/dL (14.0-18.0); LYMPHOCYTES # (AUTO) 0.8 10^3/uL (1.5-3.5); LYMPHOCYTES % (AUTO) 15.5 %; MEAN CORPUSCULAR HEMOGLOBIN 27.3 pg (27.0-31.0); MEAN CORPUSCULAR HGB CONC 31.7 g/dL (32.0-36.0); MEAN CORPUSCULAR VOLUME 86.2 fL (80.0-94.0); MEAN PLATELET VOLUME 7.1 fL (7.4-11.4); MONOCYTES # (AUTO) 0.6 10^3/uL (0.0-1.0); MONOCYTES % (AUTO) 11.2 %; NEUTROPHILS # (AUTO) 3.8 10^3/uL (1.5-6.6); NEUTROPHILS % (AUTO) 70.2 %; PLT - PLATELET COUNT 231 10^3/uL (130-450); RED BLOOD COUNT 2.82 10^6/uL (4.70-6.10); RED CELL DISTRIBUTION WIDTH 16.6 % (12.0-15.0); WHITE BLOOD COUNT 5.4 x10^3/uL (4.8-10.8)
[2017-11-13 21:35] LABS: INR 1.1 (0.8-1.2); PT - PROTHROMBIN TIME 12.5 secs (9.9-12.6)
--- NOTE | 2017-11-13 21:54 | CT Report ---
EXAM: CT HEAD EXAM DATE: 11/13/2017 09:38 PM. CLINICAL HISTORY: Questionable syncope and ams. COMPARISON: 06/03/2017. TECHNIQUE: Multiaxial CT images were obtained from the foramen magnum to the vertex. Reformats: Coron al. IV contrast: None. In accordance with CT protocol optimization, one or more of the following dose reduction techniques w ere utilized for this exam: automated exposure control, adjustment of mA and/or KV based on patient s ize, or use of iterative reconstructive technique. FINDINGS: Parenchyma: There is hypodensity in the deep left frontal lobe and anterior left corpus callosum kale on which is new since previous examination. Negative for intracranial hemorrhage. No midline shift or mass effect. Extraaxial Spaces: No subdural or epidural collections identified. Ventricles: Normal in size and position. Sinuses and Orbits: Imaged paranasal sinuses, orbits, and mastoids show no significant abnormality. Bones: No evidence of fracture or calvarial defect. Other: None. IMPRESSION: 1. Negative for intracranial acute hemorrhage, mass effect, or definite acute process. 2. New hypodensity anterior left corpus callosum region consistent with an old infarct which is new s patito 06/03/2017. [facility] Referring Provider Line: [phone] SITE ID: [id number]
--- NOTE | 2017-11-13 21:54 | CT Preliminary Report ---
Exam: CT HEAD W/O IMPRESSION: 1. Negative for intracranial acute hemorrhage, mass effect, or definite acute process. 2. New hypodensity anterior left corpus callosum region consistent with an old infarct which is new s patito 06/03/2017. [facility] SITE ID: [id number]
[2017-11-13 21:56] LABS: ALBUMIN 3.4 g/dL (3.2-5.5); ALBUMIN/GLOBULIN RATIO 0.9 (1.0-2.2); BILIRUBIN,TOTAL 0.8 mg/dL (0.2-1.0); CALCIUM 9.7 mg/dL (8.5-10.3); CREATININE 1.1 mg/dL (0.6-1.2)
[2017-11-13 21:59] LABS: BILIRUBIN,URINE NEGATIVE (NEGATIVE); GLUCOSE, URINE (UA) >=1000 mg/dL (NEGATIVE); KETONES,URINE (UA) NEGATIVE (NEGATIVE); LEUKOCYTE ESTERASE, URINE NEGATIVE (NEGATIVE); NITRITE,URINE NEGATIVE (NEGATIVE); OCCULT BLOOD,URINE TRACE-LYSE (NEGATIVE); PROTEIN,URINE NEGATIVE (NEGATIVE); UROBILINOGEN,URINE 0.2 (NORMAL) E.U./dL (NORMAL)
[2017-11-13 22:02] LABS: CLARITY,URINE CLEAR (CLEAR)
[2017-11-13] MEDS ORDERED: MORPHINE 2 MG/ML CARPUJECT IVP STA (22:59)
[2017-11-14 00:07] VITALS: BP 147/75
--- NOTE | 2017-11-14 00:16 | ED Physician Documentation ---
PD HPI SEIZURE - Stated complaint Stated Complaint: UNRESPONSIVE - Chief complaint Chief Complaint: Neuro - History obtained from History obtained from: Patient, Family, EMS - History of Present Illness Timing - onset: Today Witnessed: Witnessed Number of seizures: Single Description of seizure activity: Abscence Injury during seizure: None Associated symptoms: No: Headache, Vision changes, Chest pain History of seizures: Known seizure disorder Similar symptoms before: Work up / diagnostics, Treatment Recently seen: Surgery (TAVR 9 days prior) - Additional information Additional information: patient is a 67 year old male with a history of seizures, prior cva and resent TAVR done about 9 days ago who is presenting to the emergency department for altered mental status and confusion. According to ems patient was at the table when he had some shaking and then a blank stare. Patient was confused after the procedure. ems was called and brought the patient in for evaluation. Upon initial evaluation in the emergency department patient was mildly confused. When patient's arrived she stated that it was typical of patient's seizures. She also reported that the TAVR had complications and patient lost a lot of blood during the procedure but they have been tracking the levels. Review of Systems Unable to obtain: Confused PD PAST MEDICAL HISTORY - Past Medical History Past Medical History: Yes Cardiovascular: Hypertension, High cholesterol, Coronary artery disease, Peripheral Vascular Disease, Angina, [place], Atrial fibrillation, Valve disorder Respiratory: Shortness of breath, Other Neuro: CVA, TIA, Other Endocrine/Autoimmune: Type 2 diabetes GI: GERD : Incontinence, Kidney stones, Other HEENT: Glaucoma, Other Psych: Anxiety Musculoskeletal: Osteoarthritis, Gout, Chronic back pain Derm: Other - Past Surgical History Past Surgical History: Yes General: Cholecystectomy, Appendectomy Ortho: Knee replacement, Rotator cuff repair, Spine surgery, Other Derm: Skin cancer surgery - Present Medications Home Medications: Ambulatory Orders Medication Instructions Recorded Confirmed Allopurinol 100 mg PO DAILY 07/28/16 10/21/17 Furosemide 40 mg PO DAILY 07/28/16 10/21/17 Tamsulosin [Flomax] 0.4 mg PO DAILY 07/28/16 10/21/17 Losartan Potassium 25 mg PO DAILY 12/11/16 10/21/17 Acetaminophen [Tylenol] 650 mg PO Q4HR PRN tablet 06/03/17 10/21/17 Escitalopram [Lexapro] 20 mg PO DAILY 06/03/17 10/21/17 Nitroglycerin [Nitrostat] 0.4 mg SL Q5M PRN tablet 06/03/17 10/21/17 Pantoprazole Sodium 40 mg PO QDAC 06/03/17 10/21/17 Potassium Chloride [Klor-Con M20] 20 meq PO TID 06/03/17 10/21/17 lamoTRIgine [Lamictal] 200 mg PO BID 06/03/17 10/21/17 Diphenoxylate/Atropine [Lomotil] 1 - 2 tab PO Q6HR PRN 06/07/17 10/21/17 HYDROcod/ACETAM 5/325 [[place] 5/325] 1 - 2 each PO Q6H PRN 07/31/17 10/21/17 Aspirin 81 mg PO DAILY 10/21/17 10/21/17 Clopidogrel [Plavix] 75 mg PO DAILY 10/21/17 10/21/17 Insulin Glargine [Lantus Solostar] 80 units SUBQ DAILY 10/21/17 10/21/17 - Allergies Allergies/Adverse Reactions: Allergies Allergy/AdvReac Type Severity Reaction Status Date / Time acetaminophen [From Percocet] Allergy Unknown Verified 11/13/17 21:13 adhesive tape Allergy Unknown Verified 11/13/17 21:13 atorvastatin calcium * Allergy Hallucinati Verified 11/13/17 21:13 [From Lipitor] ons ezetimibe [From Zetia] Allergy Respiratory Verified 11/13/17 21:13 fenofibrate Allergy Unknown Verified 11/13/17 21:13 Iodinated Contrast- Oral and Allergy Hives Verified 11/13/17 21:13 IV Dye [Iodinated Contrast Media - IV Dye] meperidine [From Demerol] Allergy Unknown Verified 11/13/17 21:13 methadone Allergy Unknown Verified 11/13/17 21:13 niacin Allergy Rash Verified 11/13/17 21:13 oxycodone [From Percocet] Allergy Unknown Verified 11/13/17 21:13 Penicillins Allergy Respiratory Verified 11/13/17 21:13 Modzaqx-Hwd-Tgo Reductase Allergy Unknown Verified 11/13/17 21:13 Inhibitor venom-honey bee Allergy Respiratory Verified 11/13/17 21:13 [bee venom (honey bee)] - Social History Does the pt smoke?: No Smoking Status: Never smoker Does the pt drink ETOH?: No Does the pt have substance abuse?: No - Immunizations Immunizations are current?: Yes - POLST Patient has POLST: Yes PD ED PE NORMAL - Vitals Vital signs reviewed: Yes - HEENT HEENT: Atraumatic, PERRL, Moist mucous membranes - Neck Neck: Supple, no meningeal sign - Cardiac Cardiac: RRR, No murmur - Respiratory Respiratory: No respiratory distress - Extremities Extremities: No deformity - 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, No motor deficit, No sensory deficit PD ED PE EXPANDED - HEENT HEENT: PERRL, EOMI, Ears normal - Abdomen Abdomen: Other (obese and ecchymotic) - Derm Derm: Bruising - GCS Eye Opening: Spontaneous Motor: Obeys Commands Verbal: Confused Total: 14 Results - Vitals Vitals: Vital Signs - 24 hr 11/13/17 11/13/17 11/13/17 21:06 21:44 22:11 Temperature 36.6 C Heart Rate 84 82 81 Respiratory 13 19 23 Rate Blood Pressure 137/58 H 106/69 126/69 O2 Saturation 100 100 100 11/13/17 11/13/17 11/14/17 23:00 23:34 00:05 Temperature 37.0 C Heart Rate 80 84 85 Respiratory 19 16 12 Rate Blood Pressure 138/76 H 136/75 H 147/75 H O2 Saturation 100 99 100 11/14/17 00:25 Temperature 36.7 C Heart Rate 85 Respiratory 18 Rate Blood Pressure 147/75 H O2 Saturation 98 Oxygen O2 Source Room air - EKG (time done) 2115 Rate: Rate (enter#) (83) Rhythm: NSR Intervals: LBBB QRS: Normal Compare to prior EKG: Unchanged from prior EKG - Labs Labs: Laboratory Tests 11/13/17 11/13/17 11/13/17 21:20 21:20 21:20 WBC 5.4 RBC 2.82 L Hgb 7.7 L Hct 24.3 L MCV 86.2 MCH 27.3 MCHC 31.7 L RDW 16.6 H Plt Count 231 MPV 7.1 L Neut # 3.8 Lymph # 0.8 L [place] # 0.6 Eos # 0.1 Baso # 0.0 Absolute Nucleated RBC 0.01 Nucleated RBC % 0.1 PT 12.5 INR 1.1 APTT 28.4 Sodium 132 L Potassium 4.1 Chloride 100 L Carbon Dioxide 23 Anion Gap 9.0 BUN 20 Creatinine 1.1 Estimated GFR (MDRD) 66 L Glucose 320 H Calcium 9.7 Total Bilirubin 0.8 AST 32 ALT 24 Alkaline Phosphatase 88 Troponin I B-Natriuretic Peptide Total Protein 7.0 Albumin 3.4 Globulin 3.6 Albumin/Globulin Ratio 0.9 L Lipase 48 Urine Color Urine Clarity Urine pH Ur Specific [place] Urine Protein Urine Glucose (UA) Urine Ketones Urine Occult Blood Urine Nitrite Urine Bilirubin Urine Urobilinogen Ur Leukocyte Esterase Ur Microscopic Review Urine Culture Comments Blood Type Blood Type Recheck Antibody Screen 11/13/17 11/13/17 11/13/17 21:20 21:20 21:50 WBC RBC Hgb Hct MCV MCH MCHC RDW Plt Count MPV Neut # Lymph # [place] # Eos # Baso # Absolute Nucleated RBC Nucleated RBC % PT INR APTT Sodium Potassium Chloride Carbon Dioxide Anion Gap BUN Creatinine Estimated GFR (MDRD) Glucose Calcium Total Bilirubin AST ALT Alkaline Phosphatase Troponin I < 0.04 B-Natriuretic Peptide 75 Total Protein Albumin Globulin Albumin/Globulin Ratio Lipase Urine Color YELLOW Urine Clarity CLEAR Urine pH 5.0 Ur Specific [place] 1.015 Urine Protein NEGATIVE Urine Glucose (UA) >=1000 H Urine Ketones NEGATIVE Urine Occult Blood TRACE-LYSE Urine Nitrite NEGATIVE Urine Bilirubin NEGATIVE Urine Urobilinogen 0.2 (NORMAL) Ur Leukocyte Esterase NEGATIVE Ur Microscopic Review NOT INDICATED Urine Culture Comments NOT INDICATED Blood Type Blood Type Recheck Antibody Screen 11/13/17 11/13/17 23:13 23:13 WBC RBC Hgb Hct MCV MCH MCHC RDW Plt Count MPV Neut # Lymph # [place] # Eos # Baso # Absolute Nucleated RBC Nucleated RBC % PT INR APTT Sodium Potassium Chloride Carbon Dioxide Anion Gap BUN Creatinine Estimated GFR (MDRD) Glucose Calcium Total Bilirubin AST ALT Alkaline Phosphatase Troponin I B-Natriuretic Peptide Total Protein Albumin Globulin Albumin/Globulin Ratio Lipase Urine Color Urine Clarity Urine pH Ur Specific [place] Urine Protein Urine Glucose (UA) Urine Ketones Urine Occult Blood Urine Nitrite Urine Bilirubin Urine Urobilinogen Ur Leukocyte Esterase Ur Microscopic Review Urine Culture Comments Blood Type A POSITIVE Blood Type Recheck A POSITIVE Antibody Screen NEGATIVE - Rads (name of study) ct head Radiology: Final report received (prior stroke but no acute findings) PD MEDICAL DECISION MAKING - ED course Complexity details: reviewed old records, reviewed results, re-evaluated patient , considered differential, d/w patient, d/w family, d/w industrial rehabilitation consultant ED course: Patient was seen and examined at bedside. Iv access was gained and labs were drawn. ekg was performed and showed left bundle. ct was ordered. When patient returned he was more coherent. Patient's came and was at bedside. She reported that she thought the symptoms were likely secondary to seizure due to all the recent stressors. patient's labs revealed a hemoglobin of 7.7. Patient's thoracic surgery team was contacted and the case was discussed with them. they stated that they did not think that the tavr would be the cause of the symptoms but they would consult on the case if the patient was transferred. [facility] was contacted but refused the patient because they did not have any beds, but previous records were requested. Patient's hemoglobin has been improving. Case was discussed with in house hospitalist who stated that if it was secondary to seizure and patient's hemoglobin was stable that he could follow up outpatient. Case was discussed with the family who reported that they had follow up on thursday and were comfortable with the plan. Patient was discharged with specific precautions and return instructions. Departure - Departure Disposition: Home, Self Care Clinical Impression: Seizure Condition: Stable Instructions: ED Seizure Recurrent Follow-Up: RUI CASTELLANOS MD [Primary Care Provider] - Within 3 Days Comments: Your symptoms today were likely secondary to your seizures. Your CT of your head showed that you have had a stroke in the last three months. Your hemoglobin levels appear to be stable. You should follow up with your doctor on thursday. You may return to the emergency department at any time for new, worsening or uncontrollable symptoms. Discharge Date/Time: 11/14/17 00:27
== END 2017-11-14 00:27 | disposition home or self-care (01) ==
LOC: EDUNIT# → ED 20:57
DX: G40.909 Epilepsy, unspecified, not intractable, without status epilepticus (principal); Z95.2 Presence of prosthetic heart valve; I44.7 Left bundle-branch block, unspecified; I10 Essential (primary) hypertension; I25.10 Atherosclerotic heart disease of native coronary artery without angina pectoris; I25.2 Old myocardial infarction; E11.9 Type 2 diabetes mellitus without complications; Z79.4 Long term (current) use of insulin; Z86.73 Personal history of transient ischemic attack (TIA), and cerebral infarction without residual deficits; Z79.02 Long term (current) use of antithrombotics/antiplatelets; Z79.82 Long term (current) use of aspirin
CPT/HCPCS: 36415; 70450; 80048; 80053; 81001; 81003; 83690; 83880; 84484; 85025; 85610; 85730; 86850; 86900; 86901; 87086; 93005; 96374; 99284; 99285

== ENCOUNTER 2017-11-27 10:25 | Emergency (ER) | payer MEDICARE, OTHER ==
[2017-11-27 11:17] LABS: BASOPHILS % (AUTO) 0.3 %; EOSINOPHILS # (AUTO) 0.3 10^3/uL (0.0-0.7); EOSINOPHILS % (AUTO) 3.1 %; HGB - HEMOGLOBIN 11.2 g/dL (14.0-18.0); LYMPHOCYTES # (AUTO) 0.7 10^3/uL (1.5-3.5); MEAN CORPUSCULAR HEMOGLOBIN 28.3 pg (27.0-31.0); MEAN CORPUSCULAR HGB CONC 32.8 g/dL (32.0-36.0); MEAN CORPUSCULAR VOLUME 86.4 fL (80.0-94.0); MEAN PLATELET VOLUME 7.6 fL (7.4-11.4); MONOCYTES # (AUTO) 0.9 10^3/uL (0.0-1.0); MONOCYTES % (AUTO) 11.2 %; NEUTROPHILS # (AUTO) 6.5 10^3/uL (1.5-6.6); NEUTROPHILS % (AUTO) 77.4 %; PLT - PLATELET COUNT 219 10^3/uL (130-450); RED BLOOD COUNT 3.94 10^6/uL (4.70-6.10); WHITE BLOOD COUNT 8.4 x10^3/uL (4.8-10.8)
[2017-11-27 11:30] LABS: ALBUMIN 3.6 g/dL (3.2-5.5); ALBUMIN/GLOBULIN RATIO 1.1 (1.0-2.2); BILIRUBIN,TOTAL 0.6 mg/dL (0.2-1.0); CALCIUM 9.9 mg/dL (8.5-10.3); TOTAL PROTEIN 6.8 g/dL (6.7-8.2)
[2017-11-27] MEDS ORDERED: SODIUM CHLORIDE 0.9% 1,000 ML IV ONE ×3 (11:39→15:05)
[2017-11-27 16:26] LABS: BILIRUBIN,URINE NEGATIVE (NEGATIVE); GLUCOSE, URINE (UA) NEGATIVE (NEGATIVE); KETONES,URINE (UA) NEGATIVE (NEGATIVE); LEUKOCYTE ESTERASE, URINE NEGATIVE (NEGATIVE); NITRITE,URINE NEGATIVE (NEGATIVE); OCCULT BLOOD,URINE LARGE (NEGATIVE); PH,URINE 5.5 PH (5.0-7.5); PROTEIN,URINE NEGATIVE (NEGATIVE); UROBILINOGEN,URINE 0.2 (NORMAL) E.U./dL (NORMAL)
[2017-11-27 16:27] LABS: CLARITY,URINE HAZY (CLEAR)
[2017-11-27 16:36] LABS: BACTERIA,URINE Rare /HPF (None Seen); RBC,URINE TNTC /HPF (0-5); SQUAMOUS EPITHELIAL CELL,UR FEW Squamous (<= Few)
[2017-11-27 16:37] LABS: CASTS, URINE 0-2 Hyaline Casts /LPF; MUCUS,URINE Moderate Strands
[2017-11-27 17:10] VITALS: BP 108/60
[2017-11-27] MEDS ORDERED: SULFAMETH/TRIMETH DS 800/160 MG TABLET PO STA (17:59)
--- NOTE | 2017-11-27 18:10 | ED Physician Documentation ---
PD HPI ABD PAIN - Stated complaint Stated Complaint: N/D/DEHYDRATION - Chief complaint Chief Complaint: General - History obtained from History obtained from: Patient, Family (spouse) - History of Present Illness Associated symptoms: Vomiting, Diarrhea - Additional information Additional information: The patient is a 67-year-old male with a history of coronary artery disease, status post coronary stent placement 5 weeks ago, aortic valve replacement 3 weeks ago, prostate cancer for which he has been undergoing radiation therapy, and kidney stones diagnosed yesterday, who presents with vomiting and diarrhea. He has had diarrhea for the past 6 months since undergoing radiation therapy for prostate cancer. However vomiting started today. He was seen by his urologist yesterday for kidney stone and is scheduled to undergo lithotripsy next week. He denies any abdominal or flank pain currently. He denies fever or dysuria. He denies chest pain, cough, or shortness of breath. He was anemic following his aortic valve replacement, and is concerned about anemia now. Review of Systems Constitutional: reports: Fatigue. denies: Fever Ears: denies: Tinnitus/ringing Nose: denies: Congestion Throat: denies: Sore throat Cardiac: denies: Chest pain / pressure Respiratory: denies: Dyspnea, Cough GI: reports: Vomiting (2 this morning.), Diarrhea. denies: Abdominal Pain, Hematemesis, Bloody / black stool : denies: Dysuria Skin: denies: Rash Musculoskeletal: denies: Back pain, Extremity swelling Neurologic: denies: Focal weakness, Numbness, Headache PD PAST MEDICAL HISTORY - Past Medical History Cardiovascular: Hypertension, High cholesterol, Coronary artery disease, Peripheral Vascular Disease, Angina, [place], Atrial fibrillation, Valve disorder Respiratory: Shortness of breath, Other Neuro: CVA, TIA, Other Endocrine/Autoimmune: Type 2 diabetes GI: GERD : Incontinence, Kidney stones, Other HEENT: Glaucoma, Other Psych: Anxiety Musculoskeletal: Osteoarthritis, Gout, Chronic back pain Derm: Other - Past Surgical History Past Surgical History: Yes General: Cholecystectomy, Appendectomy Ortho: Knee replacement, Rotator cuff repair, Spine surgery, Other Cardiovascular: Coronary stent (5 weeks ago.), Valve replacement (Aortic valve replacement with porcine valve 3 weeks ago.) Derm: Skin cancer surgery - Present Medications Home Medications: Ambulatory Orders Medication Instructions Recorded Confirmed Allopurinol 100 mg PO DAILY 07/28/16 11/16/17 Furosemide 40 mg PO DAILY 07/28/16 11/16/17 Tamsulosin [Flomax] 0.4 mg PO DAILY 07/28/16 11/16/17 Losartan Potassium 25 mg PO DAILY 12/11/16 11/16/17 Acetaminophen [Tylenol] 650 mg PO Q4HR PRN tablet 06/03/17 11/16/17 Escitalopram [Lexapro] 20 mg PO DAILY 06/03/17 11/16/17 Nitroglycerin [Nitrostat] 0.4 mg SL Q5M PRN tablet 06/03/17 11/16/17 Pantoprazole Sodium 40 mg PO QDAC 06/03/17 11/16/17 Potassium Chloride [Klor-Con M20] 20 meq PO TID 06/03/17 11/16/17 lamoTRIgine [Lamictal] 200 mg PO BID 06/03/17 11/16/17 Diphenoxylate/Atropine [Lomotil] 1 - 2 tab PO Q6HR PRN 06/07/17 11/16/17 HYDROcod/ACETAM 5/325 [[place] 5/325] 1 - 2 each PO Q6H PRN 07/31/17 11/16/17 Aspirin 81 mg PO DAILY 10/21/17 11/16/17 Clopidogrel [Plavix] 75 mg PO DAILY 10/21/17 11/16/17 Insulin Glargine [Lantus Solostar] 80 units SUBQ DAILY 10/21/17 11/16/17 Promethazine [Phenergan] 25 - 50 mg PO Q6H PRN #10 tab 11/27/17 Sulfamethox/Trimeth 800/160 1 each PO BID #14 tablet 11/27/17 [Bactrim Ds 800/160] - Allergies Allergies/Adverse Reactions: Allergies Allergy/AdvReac Type Severity Reaction Status Date / Time acetaminophen [From Percocet] Allergy Unknown Verified 11/13/17 21:13 adhesive tape Allergy Unknown Verified 11/13/17 21:13 atorvastatin calcium * Allergy Hallucinati Verified 11/13/17 21:13 [From Lipitor] ons ezetimibe [From Zetia] Allergy Respiratory Verified 11/13/17 21:13 fenofibrate Allergy Unknown Verified 11/13/17 21:13 Iodinated Contrast- Oral and Allergy Hives Verified 03/16/18 21:13 IV Dye [Iodinated Contrast Media - IV Dye] meperidine [From Demerol] Allergy Unknown Verified 11/13/17 21:13 methadone Allergy Unknown Verified 11/13/17 21:13 niacin Allergy Rash Verified 11/13/17 21:13 oxycodone [From Percocet] Allergy Unknown Verified 11/13/17 21:13 Penicillins Allergy Respiratory Verified 11/13/17 21:13 [place]-Vik-Ree Reductase Allergy Unknown Verified 11/13/17 21:13 Inhibitor venom-honey bee Allergy Respiratory Verified 11/13/17 21:13 [bee venom (honey bee)] - Social History Does the pt smoke?: No Smoking Status: Never smoker Does the pt drink ETOH?: No Does the pt have substance abuse?: No - Immunizations Immunizations are current?: Yes - POLST Patient has POLST: Yes PD ED PE NORMAL - Vitals Vital signs reviewed: Yes (normal) - General General: Alert and oriented X 3, Well developed/nourished, Other (overweight) - HEENT HEENT: Atraumatic, EOMI, Moist mucous membranes, Pharynx benign - Neck Neck: Supple, no meningeal sign, No adenopathy, No JVD - Cardiac Cardiac: RRR, No murmur - Respiratory Respiratory: No respiratory distress, Clear bilaterally - Abdomen Abdomen: Soft, Non tender, Other (Rotund abdomen.) - Back Back: No CVA TTP - Derm Derm: No rash - Extremities Extremities: No edema, No calf tenderness / cord - Neuro Neuro: Alert and oriented X 3, No motor deficit, No sensory deficit Results - Vitals Vitals: Oxygen O2 Source Room air - Labs Labs: Microbiology 11/27/17 16:20 Urine Culture - Final Urine,Clean Catch No growth Laboratory Tests 11/27/17 11/27/17 11/27/17 11:10 11:10 16:20 WBC 8.4 RBC 3.94 L Hgb 11.2 L Hct 34.0 L MCV 86.4 MCH 28.3 MCHC 32.8 RDW 18.0 H Plt Count 219 MPV 7.6 Neut # 6.5 Lymph # 0.7 L [place] # 0.9 Eos # 0.3 Baso # 0.0 Absolute Nucleated RBC 0.00 Nucleated RBC % 0.0 Sodium 133 L Potassium 3.5 Chloride 108 Carbon Dioxide 17 L Anion Gap 8.0 BUN 22 H Creatinine 1.0 Estimated GFR (MDRD) 74 L Glucose 224 H Calcium 9.9 Total Bilirubin 0.6 AST 21 ALT 27 Alkaline Phosphatase 100 Total Protein 6.8 Albumin 3.6 Globulin 3.2 Albumin/Globulin Ratio 1.1 Lipase 20 L Urine Color YELLOW Urine Clarity HAZY Urine pH 5.5 Ur Specific [place] 1.025 Urine Protein NEGATIVE Urine Glucose (UA) NEGATIVE Urine Ketones NEGATIVE Urine Occult Blood LARGE H Urine Nitrite NEGATIVE Urine Bilirubin NEGATIVE Urine Urobilinogen 0.2 (NORMAL) Ur Leukocyte Esterase NEGATIVE Urine RBC TNTC H Urine WBC 6-10 H Ur Squamous Epith Cells FEW Squamous Urine Bacteria Rare Urine Casts 0-2 Hyaline Casts Urine Mucus Moderate Strands Ur Microscopic Review INDICATED Urine Culture Comments INDICATED PD MEDICAL DECISION MAKING - ED course Complexity details: reviewed results, re-evaluated patient, considered differential, d/w patient, d/w family, d/w hospice consultant ED course: The patient's vomiting is most likely related to renal colic, although he denies flank or back pain currently. He has a known kidney stone that is large enough to warrant lithotripsy, for which he has been scheduled by his urologist. His urinalysis reveals red blood cells too numerous to count, and white blood cell count 6-10 with rare bacteria. His abdomen is benign on examination, with no evidence to suggest an acute abdomen. CBC reveals a normal white count of 8.4. His hemoglobin and hematocrit have greatly improved since two weeks ago, with a current Hgb/Hct of 11.2/34.0 compared to 7.7/24.3 two weeks ago. Dehydration is likely with his vomiting and history of diarrhea. His BUN and creatinine are consistent with dehydration, with a BUN 22 and creatinine 1.0. Treatment in the emergency department included administration of normal saline 2 L IV, ibuprofen 800 mg orally, and Bactrim DS 1 tablet orally. I discussed his condition with Dr. Thomas who is on-call for his urologist. He agrees with instituting antibiotic treatment with Bactrim, and agrees with outpatient follow -up in urology clinic. I discussed with the patient and his the results of his workup, treatment and outpatient follow-up, as well as potentially worrisome signs or symptoms that should prompt reevaluation in the emergency department. He is being discharged with prescriptions for Bactrim DS and for Phenergan. Departure - Departure Disposition: 01 Home, Self Care Clinical Impression: Renal colic, Dehydration Vomiting Qualifiers: Vomiting type: unspecified Vomiting Intractability: non-intractable Nausea presence: with nausea Qualified Code(s): R11.2 - Nausea with vomiting, unspecified UTI (urinary tract infection) Qualifiers: Urinary tract infection type: site unspecified Hematuria presence: with hematuria Qualified Code(s): N39.0 - Urinary tract infection, site not specified Condition: Stable Instructions: ED Dehydration, ED Diet Vomiting Diarrhea Follow-Up: RUI CASTELLANOS MD [Physician No Access] - Margot Thomas MD [Physician No Access] - [facility] [Provider Group] Prescriptions: Promethazine [Phenergan] 25 - 50 mg PO Q6H PRN #10 tab PRN Reason: Nausea / Vomiting Sulfamethox/Trimeth 800/160 [Bactrim Ds 800/160] 1 each PO BID #14 tablet Comments: Drink plenty of fluids. You can use Phenergan as prescribed if needed for nausea. Take Bactrim twice daily as prescribed. Follow up with your urologist next week as planned. Return to the emergency department if you develop fever with shaking chills, persistent vomiting, recurrent dehydration, or otherwise worsening symptoms. Discharge Date/Time: 11/27/17 18:45
[2017-11-27] MEDS ORDERED: IBUPROFEN 800 MG TABLET PO STA (18:11)
== END 2017-11-27 18:45 | disposition home or self-care (01) ==
LOC: ED 10:25
DX: N20.0 Calculus of kidney (principal); E86.0 Dehydration; R11.2 Nausea with vomiting, unspecified; N39.0 Urinary tract infection, site not specified; I25.2 Old myocardial infarction; I25.10 Atherosclerotic heart disease of native coronary artery without angina pectoris; I10 Essential (primary) hypertension; E11.51 Type 2 diabetes mellitus with diabetic peripheral angiopathy without gangrene; E78.00 Pure hypercholesterolemia, unspecified; Z95.5 Presence of coronary angioplasty implant and graft; Z79.4 Long term (current) use of insulin; Z79.82 Long term (current) use of aspirin; Z87.442 Personal history of urinary calculi; Z95.2 Presence of prosthetic heart valve; Z96.659 Presence of unspecified artificial knee joint; C61 Malignant neoplasm of prostate; Z92.3 Personal history of irradiation
CPT/HCPCS: 36415; 51798; 80053; 81001; 83690; 85025; 87086; 96360; 96361; 99284; A9270; 81003

== ENCOUNTER 2017-12-30 13:20 | Outpatient (CLI) | payer MEDICARE, OTHER ==
--- NOTE | 2017-12-30 18:02 | CONSULTATION NOTE ---
Palliative Care Follow Up - Referral Referring Provider: Dr. Al Mensah Time of Visit: 12-1300 [place] [facility] [place] Reason: Met Prostate Cancer/Depression/Seizure disorder - Information Sources Records reviewed: RN notes reviewed, Previous records reviewed History/Review of Systems obtained from: Patient, Family ( Amber at visit) Exam limitations: Clinical condition (patient with STM issues;) - History of Present Illness Update Brief HPI Update: Is a very complex 67-year-old gentleman who has had multiple health issues over the last several months. I know him via his metastatic prostate cancer, his primary treatment for this is radiation and androgen suppression. He is currently on hold for his hormone therapy. He recently was found to have severe issues to the aortic stenosis, and had a T AVR as well as a stent placed. At this point in time he had a complication of a bleed, has since received an iron transfusion with some improvement. His most serious issues at this point are on 12/18 He had a left proximal stone, that was impacted. He did have a procedure, but needs to have this repeated, and has a recent stent placed. He is having hematuria related to this. Reports his most recent hemoglobin is 11.2. Of greatest concern has been his challenges with managing his seizure disorder. It was noted at some point he has had a stroke as well per their understanding. He has reestablished with Dr. Tyson Resendiz, and his telemetry Emery has been titrated to 250 mg twice daily. He had been having multiple seizures a day, these had decreased with titration of medications, but he did have a seizure during our visit. He had some kind of prodrome related to this, as he said "I am checking out". He was sitting on his seated walker, slumped to his right, eyes with slight nystagmus, and dilated, with blank look. Closes eyes, then had flapping of his left forearm that lasted for about 45 seconds, could not his head yes if I asked him if he could hear me, to come about 1-2 minutes to recover. I was taking his blood pressure during this time 132/42, pulse was 72. At that point in time he had fine tremors in his right hand. He appeared somewhat disoriented, was able to straighten up, after about 5 minutes he was able to stand and ambulate. His notes that these are often triggered by stress or fatigue. They can last from anywhere from a couple minutes up to 30 minutes. He does seem to have some warning with it. He had a second seizure of lasting shorter period of time of about 2-3 minutes in the lobby while waiting for his . Both refused ED evaluation, we were in the lobby of the hospital. She also notes he has had more short-term memory issues, increased trouble with falls and balance, some are triggered by the seizures, and others by his balance issues. Patient is very distressed by what is going on in his brain, and impacting his quality of life, as well as increasing caregiver distress. Social History - Living Situation Living arrangement: At home Living Situation: With spouse/s.o. (Patient's daughter and boyfriend live with them, Danielle does take care of their grandson Tylor who is now almost 6 months. She herself has health issues, and with patient's increasing care needs is getting quite exhausted. They do have multiple pending appointments, and with patient's cognitive issues and frequent falls as well as seizures, but has been overwhelming) Medications/Allergies - Medications Home Medications: Ambulatory Orders Medication Instructions Recorded Confirmed Allopurinol 100 mg PO DAILY 07/28/16 11/16/17 Furosemide 40 mg PO DAILY 07/28/16 12/30/17 Tamsulosin [Flomax] 0.4 mg PO DAILY 07/28/16 12/30/17 Losartan Potassium 25 mg PO DAILY 12/11/16 12/30/17 Escitalopram [Lexapro] 20 mg PO DAILY 06/03/17 12/30/17 Nitroglycerin [Nitrostat] 0.4 mg SL Q5M PRN tablet 06/03/17 12/30/17 Pantoprazole Sodium 40 mg PO QDAC 06/03/17 12/30/17 Potassium Chloride [Klor-Con M20] 20 meq PO TID 06/03/17 12/30/17 lamoTRIgine [Lamictal] 250 mg PO BID 06/03/17 12/30/17 Diphenoxylate/Atropine [Lomotil] 1 - 2 tab PO Q6HR PRN 06/07/17 12/30/17 HYDROcod/ACETAM 5/325 [[place] 5/325] 1 - 2 each PO Q6H PRN MDD NTE 8 07/31/1710/18 tabs Aspirin 81 mg PO DAILY 10/21/17 11/16/17 Clopidogrel [Plavix] 75 mg PO DAILY 10/21/17 12/30/17 Insulin Glargine [Lantus Solostar] 60 - 80 units SUBQ DAILY 10/21/17 12/30/17 Promethazine [Phenergan] 25 - 50 mg PO Q6H PRN #10 tab 11/27/17 12/30/17 - Allergies Allergies/Adverse Reactions: Allergies Allergy/AdvReac Type Severity Reaction Status Date / Time acetaminophen [From Percocet] Allergy Unknown Verified 11/13/17 21:13 adhesive tape Allergy Unknown Verified 11/13/17 21:13 atorvastatin calcium * Allergy Hallucinati Verified 11/13/17 21:13 [From Lipitor] ons ezetimibe [From Zetia] Allergy Respiratory Verified 11/13/17 21:13 fenofibrate Allergy Unknown Verified 11/13/17 21:13 Iodinated Contrast- Oral and Allergy Hives Verified 11/13/17 21:13 IV Dye [Iodinated Contrast Media - IV Dye] meperidine [From Demerol] Allergy Unknown Verified 11/13/17 21:13 methadone Allergy Unknown Verified 11/13/17 21:13 niacin Allergy Rash Verified 11/13/17 21:13 oxycodone [From Percocet] Allergy Unknown Verified 11/13/17 21:13 Penicillins Allergy Respiratory Verified 11/13/17 21:13 Ejeflij-Ysr-Nnt Reductase Allergy Unknown Verified 11/13/17 21:13 Inhibitor venom-honey bee Allergy Respiratory Verified 11/13/17 21:13 [bee venom (honey bee)] Review of Systems - Constitutional Constitutional: reports: Fatigue (had improved some with iron transfusion but worsened again), Weakness, Weight stable (243.5) - Eyes Eyes: reports: Vision loss - Ears, Nose & Throat Ears, Nose & Throat: reports: Hearing loss - Cardiovascular Cardiovascular: reports: Syncope, Exertional dyspnea, Decr. exercise tolerance - Respiratory Respiratory: reports: SOB with exertion - Gastrointestinal Gastrointestinal: reports: Diarrhea (controlled with lomotil 2x a day), Reflux/ heartburn, Good appetite - Genitourinary Genitourinary: reports: Frequency, Hematuria, Incontinence - Musculoskeletal Musculoskeletal: reports: Back pain (using hydrocodone/apap about 3-4 tabs a day ; worsens with falls), Stiffness, Limited range of motion, Muscle weakness, Assistive devices (ambulates with rolling 4WW) - Integumentary Integumentary: reports: Dryness - Neurological Neurological: reports: General weakness, Memory problems, Abnormal gait, Seizures - Psychiatric Psychiatric: reports: Depression, Anxiety, Delusions - Endocrine Endocrine: reports: Diabetes type 2 - Hematologic/Lymphatic Hematologic/Lymphatic: reports: Anemia - All Other Systems All Other Systems: reports: Reviewed and negative Physical Exam - Vital Signs Pulse Rate: 72 Respiratory Rate: 18 Blood Pressure: 132/72 - Physical Exam General Appearance: positive: Moderate distress Eyes Bilateral: positive: No scleral icterus ENT: positive: No signs of dehydration Neck: positive: Stiff neck Cardiovascular: positive: Regular rate & rhythm Respiratory: positive: Diminished in bases Abdomen: positive: Non-tender, Nml bowel sounds, Obese Skin: positive: Dryness, Other (face flushed) Extremities: positive: Pedal edema (mild pitting up to mid calf) Neurologic/Psychiatric: positive: Disoriented to time, Weakness, Other ( distressed by multiple medical problems) Palliative Care - POLST Patient has POLST: Yes POLST Status: DNR, Selective Treatment Pain: Pain worsening, Location (mid back/thoracic area; long standing but exacerbated by frequent falls) Tiredness/Fatigue: Severe (7-10) Drowsiness/Sedation: Mild (1-3) Nausea: None Depression: Moderate (4-6) Anxiety: Moderate (4-6) Dyspnea: Moderate (4-6), Comment (had just started cardiac rehab) Anorexia: Mild (1-3) Sleep: Sleeps well Feelings of wellbeing/Perceived Quality of Life: Poor, Worsening Performance Status: Patient needing increased assistance both given to his cognitive and functional status. Does need cueing, they are using a white board to help him stay centered, and we oriented. With his increased trouble with falls, imbalance, has needed assistance up from the floor. Concerns also regarding his seizures, and risk for injury. 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 He is quite frightened at the alterations and changes in his ability to think, he is "doer", and his activities have been severely limited. He does find [place] and being with his grandson, does recognize his is getting overwhelmed. Has had multiple medical appointments and complications and is somewhat exhausted by this. Is trying to remain optimistic , does have a history of severe depression, reports at this point in time he is coping okay as he has been suicidal in the past. Impression and Recommendations - Palliative Care Impression: This is a complex 67-year-old gentleman who has multiple medical issues that are impacting his quality of life. His most significant currently is his titration and management of his seizures, but is also trying to manage a recent ureteral stent, as well as hematuria. Palliative care providing support and counseling for pain, depression, anxiety, and caregiver fatigue. Recommendations/Counseling Done: 1. Seizures. Patient refused to go to the emergency, follow-up on seizures witnessed. did agree if she had any problems when she got him home, she would call 911 as it had 2 seizures by the time it left. She attributes this to the stress and fatigue he is currently feeling. Is quite anxious over his complex health issues, and was attempting to attend cardiac rehab. Will send note to Dr. Tyson Resendiz with descriptors of current seizures, reports he has not witnessed that she has been locking information. Recommended Medical Alert bracelet/life alert, patient currently being supervised 23/03 by family but patient has impulsivity. 2. Acute on chronic back pain. Patient does feel he is managed on his current hydrocodone/acetaminophen. He does titrate up when exacerbated by falls. Does report this is satisfactory at this point in time. Does not want any adjustments for medications. 3. Diarrhea. Suspect this is related to long-term effects of radiation, he is managed on Lomotil twice daily. Has been testing out holding various medications, without much improvement. Feels currently it is managed. 4. Kidney stones. Patient currently has ureteral stent, is told to limit his activity. Given patient's seizure and restrictions, did follow up with cardiac rehab regarding current situation, patient was quite distressed about having conversation. Staff is more than understanding, will put him on hold for now, and restart when his complex health issues are somewhat better controlled. 5. Depression. Patient does have major depressive disorder, currently feels it is under control, has had suicidal ideation in the past, does need continued supervision and evaluation. Will continue with meeting with palliative care to process feeling of grief and loss related to ongoing and complex health issues. Time Spent: 60 minutes with greater than 50% of this done in counseling, coordination of care, processing feelings of grief and loss, and anticipatory guidance
== END 2017-12-30 13:21 | disposition home or self-care (01) ==
LOC: PC 13:20
PROVIDERS: ATTEND Nurse Practitioner Adult Health
DX: Z51.5 Encounter for palliative care (principal); R56.9 Unspecified convulsions; M54.9 Dorsalgia, unspecified; G89.29 Other chronic pain; R19.7 Diarrhea, unspecified; N20.0 Calculus of kidney; F32.9 Major depressive disorder, single episode, unspecified; C61 Malignant neoplasm of prostate; C79.9 Secondary malignant neoplasm of unspecified site; I35.0 Nonrheumatic aortic (valve) stenosis; R31.9 Hematuria, unspecified; Z91.81 History of falling; Z96.89 Presence of other specified functional implants; Z79.891 Long term (current) use of opiate analgesic; Z79.82 Long term (current) use of aspirin; Z66 Do not resuscitate
CPT/HCPCS: 99215

== ENCOUNTER 2018-03-19 20:01 | Outpatient (CLI) | payer MEDICARE, OTHER | END 2018-03-19 20:02 | disposition critical access hospital (66) | LOC: EMS 20:01 | PROVIDERS: ATTEND Surgery | DX: R07.81 Pleurodynia (principal); W01.198A Fall on same level from slipping, tripping and stumbling with subsequent striking against other object, initial encounter; Y92.009 Unspecified place in unspecified non-institutional (private) residence as the place of occurrence of the external cause; Z79.01 Long term (current) use of anticoagulants | CPT/HCPCS: A0425; A0429 ==

== ENCOUNTER 2018-03-19 20:22 | Emergency (ER) | payer MEDICARE, OTHER ==
[2018-03-19] MEDS: HYDROcod/ACETAM 10 MG/325 MG TABLET PO STA (21:29)
--- NOTE | 2018-03-19 22:11 | ED Physician Documentation ---
History of Present Illness - Stated complaint Stated Complaint: GLF - Chief complaint Chief Complaint: Trauma Ext - History obtained from History obtained from: Patient, Family - Additonal information Additional information: 68-year-old male presents the emergency department for evaluation of right rib pain and knee pain after falling. The patient was working in his garden and tripped and subsequently landed on his knee and then struck his right ribs. The patient reports pain with movement and deep inspiration. The patient denies striking his head and denies headache or neck pain. No injury to the upper extremities. The patient denies pain in his hips or left side. Symptoms are described as moderate. No relieving factors. No other associated injury Review of Systems Constitutional: denies: Fever, Myalgias, Fatigue Ears: denies: Ear pain Nose: denies: Congestion Throat: denies: Sore throat Cardiac: reports: Other (The patient has chest wall discomfort where he is injured) Respiratory: denies: Dyspnea, Cough, Hemoptysis GI: denies: Abdominal Pain, Nausea, Vomiting : denies: Hematuria Musculoskeletal: reports: Joint pain. denies: Neck pain, Back pain Neurologic: denies: Syncope, Headache, Head injury PD PAST MEDICAL HISTORY - Past Medical History Past Medical History: Yes Cardiovascular: Hypertension, High cholesterol, Coronary artery disease, Peripheral Vascular Disease, Angina, [place], Atrial fibrillation, Valve disorder Respiratory: Shortness of breath, Other Endocrine/Autoimmune: Type 2 diabetes GI: GERD : Incontinence, Kidney stones, Other HEENT: Glaucoma, Other Psych: Anxiety Musculoskeletal: Osteoarthritis, Gout, Chronic back pain Derm: Other - Past Surgical History Past Surgical History: Yes General: Cholecystectomy, Appendectomy Ortho: Knee replacement, Rotator cuff repair, Spine surgery, Other Cardiovascular: Coronary stent, Valve replacement Derm: Skin cancer surgery - Present Medications Home Medications: Ambulatory Orders Medication Instructions Recorded Confirmed Allopurinol 100 mg PO DAILY 07/28/16 02/15/18 Furosemide 40 mg PO DAILY 07/28/16 02/15/18 Tamsulosin [Flomax] 0.4 mg PO DAILY 07/28/16 02/15/18 Losartan Potassium 25 mg PO DAILY 12/11/16 02/15/18 Escitalopram [Lexapro] 20 mg PO DAILY 06/03/17 02/15/18 Nitroglycerin [Nitrostat] 0.4 mg SL Q5M PRN tablet 06/03/17 02/15/18 Pantoprazole Sodium 40 mg PO QDAC 06/03/17 02/15/18 Potassium Chloride [Klor-Con M20] 20 meq PO TID 06/03/17 02/15/18 lamoTRIgine [Lamictal] 250 mg PO BID 06/03/17 02/15/18 Diphenoxylate/Atropine [Lomotil] 1 - 2 tab PO Q6HR PRN 06/07/17 02/15/18 HYDROcod/ACETAM 5/325 [[place] 5/325] 1 - 2 each PO Q6H PRN MDD NTE 8 07/31/17 tabs Aspirin 81 mg PO DAILY 10/21/17 02/15/18 Clopidogrel [Plavix] 75 mg PO DAILY 10/21/17 02/15/18 Insulin Glargine [Lantus Solostar] 60 - 80 units SUBQ DAILY 10/21/17 02/15/18 Promethazine [Phenergan] 25 - 50 mg PO Q6H PRN #10 tab 11/27/17 02/15/18 Docusate Sodium 250Mg Capsule 250 mg PO DAILY PRN #30 capsule 03/19/18 [Colace 250Mg Capsule] Ondansetron Odt [Zofran] 4 mg TL Q6H PRN #20 tablet 03/19/18 Oxycodone HCl/Acetaminophen 1 each PO Q6H PRN #20 tablet 03/19/18 [Percocet 5-325 mg Tablet] - Allergies Allergies/Adverse Reactions: Allergies Allergy/AdvReac Type Severity Reaction Status Date / Time acetaminophen [From Percocet] Allergy Unknown Verified 03/19/18 20:27 adhesive tape Allergy Unknown Verified 03/19/18 20:27 atorvastatin calcium * Allergy Hallucinati Verified 03/19/18 20:27 [From Lipitor] ons ezetimibe [From Zetia] Allergy Respiratory Verified 03/19/18 20:27 fenofibrate Allergy Unknown Verified 03/19/18 20:27 Iodinated Contrast- Oral and Allergy Hives Verified 03/19/18 20:27 IV Dye [Iodinated Contrast Media - IV Dye] meperidine [From Demerol] Allergy Unknown Verified 03/19/18 20:27 methadone Allergy Unknown Verified 03/19/18 20:27 niacin Allergy Rash Verified 03/19/18 20:27 oxycodone [From Percocet] Allergy Unknown Verified 03/19/18 20:27 Penicillins Allergy Respiratory Verified 03/19/18 20:27 Hqjzogw-Nzh-Lxu Reductase Allergy Unknown Verified 03/19/18 20:27 Inhibitor venom-honey bee Allergy Respiratory Verified 03/19/18 20:27 [bee venom (honey bee)] - Social History Does the pt smoke?: No Smoking Status: Never smoker Does the pt drink ETOH?: No Does the pt have substance abuse?: No - Immunizations Immunizations are current?: Yes - POLST Patient has POLST: Yes PD ED PE NORMAL - General General: Alert and oriented X 3, No acute distress, Well developed/nourished - HEENT HEENT: Atraumatic, PERRL, EOMI, Ears normal - Neck Neck: Supple, no meningeal sign, No bony TTP - Cardiac Cardiac: Strong equal pulses - Respiratory Respiratory: No respiratory distress, Clear bilaterally, Other (The patient has tenderness along the right chest wall, there is no crepitus or subcutaneous emphysema or edema or contusion of the chest wall) - Abdomen Abdomen: Normal bowel sounds - Derm Derm: Normal color - Extremities Extremities: No deformity. No: No tenderness to palpate (The patient is tender to palpation in his right knee, there is a small abrasion, the patient has full active range of motion of bilateral hips, knees and ankles. The patient has normal cap refill and a normal dorsalis pedis pulse. The patient has no tenderness in the bilateral shoulders, elbows or wrists) - Neuro Neuro: Alert and oriented X 3, Normal speech - Psych Psych: Normal mood Results - Vitals Vitals: Vital Signs - 24 hr 03/19/18 03/19/18 03/19/18 20:26 21:26 22:02 Temperature 36.9 C Heart Rate 82 79 79 Respiratory 16 18 14 Rate Blood Pressure 144/75 H 129/60 124/41 L O2 Saturation 95 97 95 Oxygen O2 Source Room air - Rads (name of study) Right knee x-ray Radiology: Final report received, See rad report (Impression: 1. Fragmented patella as above, difficult to determine if there are is no acute fracture superimposed upon the old/chronic fracture 2. Small joint effusion with prior knee arthroplasty. No evidence of hardware loosening or failure and no dislocation 3. Intra-articular loose bodies as above) CT CHEST W/O Radiology: Final report received (Pression: 1. Minimally displaced right lateral seventh rib fracture with adjacent small intramuscular and soft tissue hematoma. Possible additional nondisplaced costochondral junction fractures of the right ninth and 10th ribs 2. No acute intrathoracic abnormality. Specifically no pneumothorax hemothorax, pulmonary contusion or laceration 3. Additional findings as above including circumflex wall prior granulomatous disease and nonobstructing left nephrolithiasis), See rad report PD MEDICAL DECISION MAKING - ED course ED course: On reevaluation the patient is resting comfortably, the patient has no respiratory distress and the patient appears appropriate for discharge home and outpatient management. I discussed with the patient the findings. The patient' s comfortable attempting outpatient management. I discussed warning signs for decompensation and recommended returning to the emergency department immediately for worsening or any concerns. - Sepsis Event Vital Signs: Vital Signs - 24 hr 03/19/18 03/19/18 03/19/18 20:26 21:26 22:02 Temperature 36.9 C Heart Rate 82 79 79 Respiratory 16 18 14 Rate Blood Pressure 144/75 H 129/60 124/41 L O2 Saturation 95 97 95 Oxygen O2 Source Room air Departure - Departure Disposition: 01 Home, Self Care Clinical Impression: Knee contusion Qualifiers: Encounter type: initial encounter Laterality: right Qualified Code(s): S80.01XA - Contusion of right knee, initial encounter Chest wall contusion Qualifiers: Encounter type: initial encounter Laterality: right Qualified Code(s): S20.211A - Contusion of right front wall of thorax, initial encounter Closed rib fracture Qualifiers: Encounter type: initial encounter Rib fracture type: multiple ribs Laterality: right Qualified Code(s): S22.41XA - Multiple fractures of ribs, right side, initial encounter for closed fracture Condition: Good Instructions: ED Effusion Knee, ED Contusion Vs Minor Fx Rib, ED Fx Rib, Incentive Spirometer Dc Follow-Up: Cameron Mcgill MD [Primary Care Provider] - Within 1 week Prescriptions: Docusate Sodium 250Mg Capsule [Colace 250Mg Capsule] 250 mg PO DAILY PRN #30 capsule PRN Reason: Constipation Ondansetron Odt [Zofran] 4 mg TL Q6H PRN #20 tablet PRN Reason: Nausea / Vomiting Oxycodone HCl/Acetaminophen [Percocet 5-325 mg Tablet] 1 each PO Q6H PRN #20 tablet PRN Reason: pain Comments: Please do not take her normal hydrocodone while taking the Percocet. The combination may cause confusion or respiratory depression. Just take your Percocet or hydrocodone Please return to the emergency department for worsening symptoms or any concerns
--- NOTE | 2018-03-19 22:15 | XRAY Report ---
Procedure Date: 03/19/2018 Accession Number: [id number] / [id number] Procedure: XR - Knee 2 View RT CPT Code: FULL RESULT: EXAM: RIGHT KNEE RADIOGRAPHY. EXAM DATE: 03/19/2018 09:47 PM. CLINICAL HISTORY: Knee pain from fall. COMPARISON: 04/27/2017. TECHNIQUE: 2 views. FINDINGS: Bones: Fragmentation of the [place] patella as before with transverse fracture involving the superior pole and apex, not definitely changed from prior exam. Heterotopic ossification present along the lateral aspect of the patella as before, perhaps slightly increased. No definite acute interval fracture. Joints: Post knee arthroplasty. No evidence of hardware loosening or failure at the patellar or femoral component. Small joint effusion, similar to prior exam. Multiple calcified loose bodies again noted throughout the knee joint. No dislocation/subluxation. Soft Tissues: Soft tissue swelling present anteriorly. Dystrophic calcifications again noted in the proximal interosseous ligament. IMPRESSION: 1. 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 2. Small joint effusion with prior knee arthroplasty. No evidence of hardware loosening or failure and no dislocation. 3. Intra-articular loose bodies as before. RADIA
--- NOTE | 2018-03-19 22:52 | CT Report ---
Procedure Date: 03/19/2018 Accession Number: [id number] / [id number] Procedure: CT - Chest W/O CPT Code: FULL RESULT: EXAM: CT CHEST EXAM DATE: 03/19/2018 10:00 PM. CLINICAL HISTORY: Trauma, rib pain right-sided. COMPARISONS: Rib radiographs 10/28/2017. CT of the abdomen and pelvis 10/29/2015. TECHNIQUE: Routine helical CT imaging was performed through the chest. IV contrast: None. Reconstructions: Coronal and sagittal. In accordance with CT protocol optimization, one or more of the following dose reduction techniques were utilized for this exam: automated exposure control, adjustment of mA and/or KV based on patient size, or use of iterative reconstructive technique. FINDINGS: Lungs/Pleura: Asymmetric elevation of the right hemidiaphragm as before, possibly phrenic nerve dysfunction. No pneumothorax, pleural effusion or hemothorax. No mass, consolidation or edema. No evidence of pulmonary contusion or laceration. Stable 5 mm solid right middle lobe pulmonary nodule is unchanged since at least 10/29/2015 exam suggestive of a benign etiology such as a noncalcified granuloma (12/27). Punctate calcified granuloma present in the inferior aspect of the right upper lobe measuring 2 mm (12/21). Mediastinum: Normal heart size. Severe LAD calcifications and/or stent present. No significant pericardial effusion. Patient is post trans-arterial aortic valve replacement. Thoracic aorta is normal in course and caliber. Main pulmonary arterial caliber is within normal limits. No mass or adenopathy. Bones: Minimally displaced right lateral seventh rib fracture with small adjacent intramuscular hematoma (41). Possible nondisplaced right ninth and tenth rib fracture at the costochondral junction (57). Old healed left anterior rib fractures noted. Severe degenerative changes through the thoracolumbar spine without acute spinal fracture. Thoracic dextroscoliosis noted. The sternum is intact. Visualized Abdomen: Nonobstructing left nephrolithiasis, largest conglomerate of calculi in the lower pole measuring 13 mm maximally (). Exophytic mildly hyperdense lesion from the left interpolar kidney is slightly increased in size since 2016 exam, likely a hyperdense cyst now measuring 17 mm, previously 12 mm (). Postcholecystectomy. Ventral hernia repair with mesh partially visualized. Scattered punctate granulomata within the liver predominating near the dome. Other: None. IMPRESSION: 1. Minimally displaced right lateral seventh rib fracture with adjacent small intramuscular and soft tissue hematoma. Possible additional nondisplaced costochondral junction fractures of the right ninth and tenth ribs. 2. No acute intrathoracic abnormality. Specifically no pneumothorax, hemothorax, pulmonary contusion or laceration. 3. Additional findings as above including sequela of prior granulomatous disease and nonobstructing left nephrolithiasis. RADIA
[2018-03-19 23:19] VITALS: BP 119/65
== END 2018-03-19 23:19 | disposition home or self-care (01) ==
LOC: EDUNIT# → ED 20:22
DX: S80.01XA Contusion of right knee, initial encounter (principal); S20.211A Contusion of right front wall of thorax, initial encounter; S22.41XA Multiple fractures of ribs, right side, initial encounter for closed fracture; S80.211A Abrasion, right knee, initial encounter; W01.10XA Fall on same level from slipping, tripping and stumbling with subsequent striking against unspecified object, initial encounter; Y93.H2 Activity, gardening and landscaping; Y92.096 Garden or yard of other non-institutional residence as the place of occurrence of the external cause; E78.00 Pure hypercholesterolemia, unspecified; I48.91 Unspecified atrial fibrillation; I25.2 Old myocardial infarction; I25.10 Atherosclerotic heart disease of native coronary artery without angina pectoris; I10 Essential (primary) hypertension; E11.51 Type 2 diabetes mellitus with diabetic peripheral angiopathy without gangrene; Z95.5 Presence of coronary angioplasty implant and graft; Z95.2 Presence of prosthetic heart valve; Z96.659 Presence of unspecified artificial knee joint; Z79.01 Long term (current) use of anticoagulants
CPT/HCPCS: 71250; 73560; 99283; A9270

== ENCOUNTER 2018-03-23 09:31 | Emergency (ER) | payer MEDICARE, OTHER ==
[2018-03-23 09:53] LABS: BASOPHILS % (AUTO) 0.6 %; EOSINOPHILS # (AUTO) 0.1 10^3/uL (0.0-0.7); EOSINOPHILS % (AUTO) 2.8 %; HGB - HEMOGLOBIN 11.3 g/dL (14.0-18.0); LYMPHOCYTES # (AUTO) 0.8 10^3/uL (1.5-3.5); LYMPHOCYTES % (AUTO) 16.4 %; MEAN CORPUSCULAR HEMOGLOBIN 26.1 pg (27.0-31.0); MEAN CORPUSCULAR VOLUME 81.7 fL (80.0-94.0); MEAN PLATELET VOLUME 6.7 fL (7.4-11.4); MONOCYTES # (AUTO) 0.5 10^3/uL (0.0-1.0); NEUTROPHILS # (AUTO) 3.5 10^3/uL (1.5-6.6); NEUTROPHILS % (AUTO) 70.2 %; PLT - PLATELET COUNT 202 10^3/uL (130-450); RED BLOOD COUNT 4.34 10^6/uL (4.70-6.10); RED CELL DISTRIBUTION WIDTH 24.7 % (12.0-15.0); WHITE BLOOD COUNT 4.9 x10^3/uL (4.8-10.8)
[2018-03-23 10:06] LABS: ALBUMIN 4.1 g/dL (3.2-5.5); ALBUMIN/GLOBULIN RATIO 1.2 (1.0-2.2); BILIRUBIN,TOTAL 0.7 mg/dL (0.2-1.0); CREATININE 0.9 mg/dL (0.6-1.2); TOTAL PROTEIN 7.4 g/dL (6.7-8.2)
[2018-03-23 10:12] LABS: RBC MORPHOLOGY (MULTIPLE) 3+ ANISOCYTOSIS (NORMAL)
--- NOTE | 2018-03-23 10:27 | CT Report ---
Procedure Date: 03/23/2018 Accession Number: [id number] / [id number] Procedure: CT - Head W/O CPT Code: FULL RESULT: EXAM: CT HEAD EXAM DATE: 03/23/2018 10:12 AM. CLINICAL HISTORY: Fall/head injury. On blood thinners COMPARISON: 11/03/2017. TECHNIQUE: Multiaxial CT images were obtained from the foramen magnum to the vertex. Reformats: Sagittal and coronal. IV contrast: None. In accordance with CT protocol optimization, one or more of the following dose reduction techniques were utilized for this exam: automated exposure control, adjustment of mA and/or KV based on patient size, or use of iterative reconstructive technique. FINDINGS: Parenchyma: No intraparenchymal hemorrhage. No evidence of mass, midline shift, or CT findings of acute infarction. Old left frontal periventricular white matter, corpus callosum infarct. Juarez-white differentiation is distinct. Diffuse chronic microangiopathic white matter changes are evident. Extraaxial Spaces: Normal for age. No subdural or epidural collections identified. Ventricles: The ventricles and cortical sulci are enlarged, consistent with age-related tissue loss. Sinuses and orbits: Imaged paranasal sinuses, orbits, and mastoids show no significant abnormality. Bones: No evidence of fracture or calvarial defect. Other: None. IMPRESSION: Generalized age-related cortical atrophic changes without evidence of acute intracranial abnormality. Old left frontal white matter, corpus callosum infarcts RADIA
--- NOTE | 2018-03-23 10:36 | ED Physician Documentation ---
PD HPI Fall - Stated complaint Stated Complaint: GLF - Chief complaint Chief Complaint: Neuro - History obtained from History obtained from: Patient - History of Present Illness Mechanism of injury: Lost balance Fall distance: Standing position Where injury occurred: Home Timing - onset: Today (Just prior to arrival.) Injury(ies) location: Head Associated symptoms: No: LOC Contributing factors: Anticoagulated (on Plavix.) - Additional information Additional information: The patient is a 68-year-old male with history of dementia, CVA, and aortic valve replacement, on Plavix, who arrives via private auto after falling in his bathroom this morning. There was no loss of consciousness, and he was able to ambulate with his cane after the incident. He presents now with abrasions to his scalp, and reports headache. He was seen here in the emergency department 4 days ago after falling while walking on uneven ground. Injuries diagnosed at that time included right-sided rib fractures. He has been taking Percocet since that time to treat the chest wall pain. His states she has been trying to limit the Percocet because it has been making him drowsy. However he was up at 3 AM and took a Percocet at that time. Review of Systems Constitutional: denies: Fever Eyes: denies: Decreased vision Ears: denies: Ear pain, Tinnitus/ringing Nose: denies: Congestion Throat: denies: Sore throat Cardiac: denies: Chest pain / pressure Respiratory: reports: Other (Right chest wall pain associated with rib fractures.). denies: Dyspnea, Cough GI: denies: Abdominal Pain, Nausea, Vomiting : denies: Dysuria Skin: reports: Abrasion (s) (scalp) Musculoskeletal: denies: Neck pain, Back pain Neurologic: reports: Headache. denies: Focal weakness, Numbness, LOC PD PAST MEDICAL HISTORY - Past Medical History Past Medical History: Yes Cardiovascular: Hypertension, High cholesterol, Coronary artery disease, Peripheral Vascular Disease, Angina, [place], Atrial fibrillation, Valve disorder Respiratory: Shortness of breath, Other Endocrine/Autoimmune: Type 2 diabetes GI: GERD : Incontinence, Kidney stones, Other HEENT: Glaucoma, Other Psych: Anxiety Musculoskeletal: Osteoarthritis, Gout, Chronic back pain Derm: Other - Past Surgical History Past Surgical History: Yes General: Cholecystectomy, Appendectomy Ortho: Knee replacement, Rotator cuff repair, Spine surgery, Other Cardiovascular: Coronary stent, Valve replacement Derm: Skin cancer surgery - Present Medications Home Medications: Ambulatory Orders Medication Instructions Recorded Confirmed Allopurinol 100 mg PO DAILY 07/28/16 02/15/18 Furosemide 40 mg PO DAILY 07/28/16 02/15/18 Tamsulosin [Flomax] 0.4 mg PO DAILY 07/28/16 02/15/18 Losartan Potassium 25 mg PO DAILY 12/11/16 02/15/18 Escitalopram [Lexapro] 20 mg PO DAILY 06/03/17 02/15/18 Nitroglycerin [Nitrostat] 0.4 mg SL Q5M PRN tablet 06/03/17 02/15/18 Pantoprazole Sodium 40 mg PO QDAC 06/03/17 02/15/18 Potassium Chloride [Klor-Con M20] 20 meq PO TID 06/03/17 02/15/18 lamoTRIgine [Lamictal] 250 mg PO BID 06/03/17 02/15/18 Diphenoxylate/Atropine [Lomotil] 1 - 2 tab PO Q6HR PRN 06/07/17 02/15/18 HYDROcod/ACETAM 5/325 [[place] 5/325] 1 - 2 each PO Q6H PRN MDD NTE 8 07/31/17 tabs Aspirin 81 mg PO DAILY 10/21/17 02/15/18 Clopidogrel [Plavix] 75 mg PO DAILY 10/21/17 02/15/18 Insulin Glargine [Lantus Solostar] 60 - 80 units SUBQ DAILY 10/21/17 02/15/18 Promethazine [Phenergan] 25 - 50 mg PO Q6H PRN #10 tab 11/27/17 02/15/18 Docusate Sodium 250Mg Capsule 250 mg PO DAILY PRN #30 capsule 03/19/18 [Colace 250Mg Capsule] Ondansetron Odt [Zofran] 4 mg TL Q6H PRN #20 tablet 03/19/18 Oxycodone HCl/Acetaminophen 1 each PO Q6H PRN #20 tablet 03/19/18 [Percocet 5-325 mg Tablet] - Allergies Allergies/Adverse Reactions: Allergies Allergy/AdvReac Type Severity Reaction Status Date / Time acetaminophen [From Percocet] Allergy Unknown Verified 03/23/18 10:01 adhesive tape Allergy Unknown Verified 03/23/18 10:01 atorvastatin calcium * Allergy Hallucinati Verified 03/23/18 10:01 [From Lipitor] ons ezetimibe [From Zetia] Allergy Respiratory Verified 03/23/18 10:01 fenofibrate Allergy Unknown Verified 03/23/18 10:01 Iodinated Contrast- Oral and Allergy Hives Verified 03/23/18 10:01 IV Dye [Iodinated Contrast Media - IV Dye] meperidine [From Demerol] Allergy Unknown Verified 03/23/18 10:01 methadone Allergy Unknown Verified 03/23/18 10:01 niacin Allergy Rash Verified 03/23/18 10:01 oxycodone [From Percocet] Allergy Unknown Verified 03/23/18 10:01 Penicillins Allergy Respiratory Verified 03/23/18 10:01 Rpnquch-Aza-Rfr Reductase Allergy Unknown Verified 03/23/18 10:01 Inhibitor venom-honey bee Allergy Respiratory Verified 03/23/18 10:01 [bee venom (honey bee)] - Social History Does the pt smoke?: No Smoking Status: Never smoker Does the pt drink ETOH?: No Does the pt have substance abuse?: No - Immunizations Immunizations are current?: Yes - POLST Patient has POLST: Yes PD ED PE NORMAL - Vitals Vital signs reviewed: Yes (Systolic hypertension initially.) - General General: Other (Alert, deconditioned male, who is drowsy but responds to verbal stimulation and answers questions.) - HEENT HEENT: PERRL, EOMI, Ears normal, Pharynx benign, Other (Superficial abrasion on right fronto-parietal scalp.) - Neck Neck: No bony TTP - Cardiac Cardiac: RRR - Respiratory Respiratory: Clear bilaterally, Other (Tenderness to palpation of the right chest wall along the axillary line, consistent with rib fracture.) - Abdomen Abdomen: Soft, Non tender, Other (Rotund abdomen.) - Back Back: No CVA TTP, No spinal TTP - Derm Derm: No rash - Extremities Extremities: No tenderness to palpate, No calf tenderness / cord - Neuro Neuro: No motor deficit, No sensory deficit, Other (Drowsy but easily aroused, baseline confusion, consistent with dementia. No acute motor or sensory deficit.) Results - Vitals Vitals: Oxygen O2 Source Room air - EKG (time done) 10:25 Rate: Rate (enter#) (71) Rhythm: NSR Intervals: LBBB Compare to prior EKG: Unchanged from prior EKG Computer interpretation: Agree with computer - Labs Labs: Laboratory Tests 03/23/18 03/23/18 09:41 09:41 WBC 4.9 RBC 4.34 L Hgb 11.3 L Hct 35.4 L MCV 81.7 MCH 26.1 L MCHC 32.0 RDW 24.7 H Plt Count 202 MPV 6.7 L Neut # (Auto) 3.5 Lymph # (Auto) 0.8 L Curry # (Auto) 0.5 Eos # (Auto) 0.1 Baso # (Auto) 0.0 Absolute Nucleated RBC 0.00 Nucleated RBC % 0.0 Manual Slide Review Indicated RBC Morph Micro Appear 3+ ANISOCYTOSIS Sodium 138 Potassium 4.1 Chloride 104 Carbon Dioxide 28 Anion Gap 6.0 BUN 16 Creatinine 0.9 Estimated GFR (MDRD) 83 L Glucose 175 H Calcium 10.0 Total Bilirubin 0.7 AST 25 ALT 26 Alkaline Phosphatase 80 Total Protein 7.4 Albumin 4.1 Globulin 3.3 Albumin/Globulin Ratio 1.2 Lipase 30 - Rads (name of study) Head CT Radiology: Prelim report reviewed, EMP read contemporaneously, See rad report ( Generalized age-related cortical atrophic changes without evidence of acute intracranial abnormality. Old left frontal white matter, corpus callosum infarcts.) PD MEDICAL DECISION MAKING - ED course Complexity details: reviewed old records, reviewed results, re-evaluated patient , considered differential, d/w patient, d/w family ED course: The patient's presentation is significant for scalp contusion/abrasion, caused by falling in his bathroom. Contributing factor to his fall, in addition to baseline incoordination, includes sedative effect of Percocet which he has been taking for pain associated with previously diagnosed rib fractures. There is no clinical evidence to suggest cardiac event or acute neurologic event. Head CT without contrast reveals no evidence of acute intracranial abnormality. No other injuries are detected on physical examination. While in the emergency department he demonstrated ability to ambulate with the assistance of his cane. I discussed with him and his the results of the workup, symptomatic treatment and outpatient follow-up, as well as potentially worrisome signs or symptoms that should prompt reevaluation in the emergency department. - Sepsis Event Vital Signs: Oxygen O2 Source Room air Departure - Departure Disposition: , Self Care Clinical Impression: History of rib fracture Fall Qualifiers: Encounter type: initial encounter Qualified Code(s): W19.XXXA - Unspecified fall, initial encounter Contusion of scalp Qualifiers: Encounter type: initial encounter Qualified Code(s): S00.03XA - Contusion of scalp, initial encounter Condition: Stable Instructions: ED Head Injury Closed Follow-Up: RUI CASTELLANOS MD [Physician No Access] - Comments: Reduce the amount of narcotic medication that you are taking. Let pain be your guide to activity level. Follow up with your primary physician within 1-2 weeks. Call to schedule appointment. Return to the emergency department if you develop progressively increasing drowsiness despite no narcotic medication, or if you develop increasing headache , persistent vomiting, or otherwise worsening symptoms. Discharge Date/Time: 03/23/18 13:02
[2018-03-23 13:02] VITALS: BP 135/67
== END 2018-03-23 13:02 | disposition home or self-care (01) ==
LOC: ED 09:31
DX: S00.03XA Contusion of scalp, initial encounter (principal); W01.0XXA Fall on same level from slipping, tripping and stumbling without subsequent striking against object, initial encounter; Y92.002 Bathroom of unspecified non-institutional (private) residence as the place of occurrence of the external cause; I10 Essential (primary) hypertension; E78.00 Pure hypercholesterolemia, unspecified; I25.10 Atherosclerotic heart disease of native coronary artery without angina pectoris; I25.2 Old myocardial infarction; I48.91 Unspecified atrial fibrillation; Z95.2 Presence of prosthetic heart valve; K21.9 Gastro-esophageal reflux disease without esophagitis; M10.9 Gout, unspecified; M19.90 Unspecified osteoarthritis, unspecified site; Z79.02 Long term (current) use of antithrombotics/antiplatelets; I44.7 Left bundle-branch block, unspecified; F03.90 Unspecified dementia, unspecified severity, without behavioral disturbance, psychotic disturbance, mood disturbance, and anxiety; Z86.73 Personal history of transient ischemic attack (TIA), and cerebral infarction without residual deficits
CPT/HCPCS: 36415; 70450; 80053; 83690; 85025; 93005; 99283; 99284

== ENCOUNTER 2018-04-06 14:10 | Outpatient (CLI) | payer MEDICARE, OTHER ==
[2018-04-06 20:00] LABS: HB2 TOTAL 12.6 g/dL; HEMOGLOBIN A1C 0.55 g/dL; HEMOGLOBIN A1C % 6.1 % (4.6-6.2)
== END 2018-04-06 14:11 | disposition home or self-care (01) ==
LOC: LAB.WCP 14:10
PROVIDERS: ATTEND Family Medicine
DX: E11.9 Type 2 diabetes mellitus without complications (principal)
CPT/HCPCS: 36415; 83036

== ENCOUNTER 2018-04-16 12:28 | Outpatient (CLI) | payer MEDICARE, OTHER | END 2018-04-16 12:29 | disposition home or self-care (01) | LOC: LAB 12:28 | PROVIDERS: ATTEND Specialist | DX: G40.219 Localization-related (focal) (partial) symptomatic epilepsy and epileptic syndromes with complex partial seizures, intractable, without status epilepticus (principal) | CPT/HCPCS: 36415; 80175 ==

== ENCOUNTER 2018-05-07 14:00 | Outpatient (CLI) | payer MEDICARE, OTHER | END 2018-05-07 14:01 | disposition critical access hospital (66) | LOC: EMS 14:00 | PROVIDERS: ATTEND Surgery | DX: R51 Headache (principal); R41.82 Altered mental status, unspecified; R53.83 Other fatigue; W19.XXXA Unspecified fall, initial encounter; Y92.531 Health care provider office as the place of occurrence of the external cause | CPT/HCPCS: A0425; A0429 ==

== ENCOUNTER 2018-05-07 14:21 | Emergency (ER) | payer MEDICARE, OTHER ==
[2018-05-07 14:44] LABS: BASOPHILS % (AUTO) 0.5 %; EOSINOPHILS # (AUTO) 0.1 10^3/uL (0.0-0.7); EOSINOPHILS % (AUTO) 2.2 %; HGB - HEMOGLOBIN 12.4 g/dL (14.0-18.0); LYMPHOCYTES # (AUTO) 1.1 10^3/uL (1.5-3.5); LYMPHOCYTES % (AUTO) 21.6 %; MEAN CORPUSCULAR HEMOGLOBIN 28.7 pg (27.0-31.0); MEAN CORPUSCULAR HGB CONC 33.1 g/dL (32.0-36.0); MEAN CORPUSCULAR VOLUME 86.8 fL (80.0-94.0); MEAN PLATELET VOLUME 6.9 fL (7.4-11.4); MONOCYTES # (AUTO) 0.6 10^3/uL (0.0-1.0); MONOCYTES % (AUTO) 10.8 %; NEUTROPHILS # (AUTO) 3.4 10^3/uL (1.5-6.6); NEUTROPHILS % (AUTO) 64.9 %; PLT - PLATELET COUNT 175 10^3/uL (130-450); RED BLOOD COUNT 4.32 10^6/uL (4.70-6.10); RED CELL DISTRIBUTION WIDTH 19.5 % (12.0-15.0); WHITE BLOOD COUNT 5.3 x10^3/uL (4.8-10.8)
[2018-05-07 14:53] LABS: ALBUMIN 3.9 g/dL (3.2-5.5); ALBUMIN/GLOBULIN RATIO 1.3 (1.0-2.2); BILIRUBIN,TOTAL 0.5 mg/dL (0.2-1.0); CALCIUM 9.7 mg/dL (8.5-10.3); TOTAL PROTEIN 6.9 g/dL (6.7-8.2)
--- NOTE | 2018-05-07 14:55 | CT Report ---
Reason: fall with head injury; on warfarin. Procedure Date: 05/07/2018 Accession Number: [id number] / [id number] Procedure: CT - Head W/O CPT Code: FULL RESULT: EXAM: CT HEAD EXAM DATE: 05/07/2018 02:41 PM. CLINICAL HISTORY: Acute pain due to trauma. COMPARISON: HEAD W/O 03/23/2018 10:00 AM. TECHNIQUE: Multiaxial CT images were obtained from the foramen magnum to the vertex. Reformats: Sagittal and coronal. IV contrast: None. In accordance with CT protocol optimization, one or more of the following dose reduction techniques were utilized for this exam: automated exposure control, adjustment of mA and/or KV based on patient size, or use of iterative reconstructive technique. FINDINGS: Parenchyma: No intraparenchymal hemorrhage. No evidence of mass, midline shift, or CT findings of infarction. Juarez-white differentiation is distinct. Extraaxial Spaces: Normal for age. No subdural or epidural collections identified. Ventricles: Normal in size and position. Sinuses and Orbits: Imaged paranasal sinuses, orbits, and mastoids show no significant abnormality. Bones: No evidence of fracture or calvarial defect. Other: None. IMPRESSION: No acute findings including no intracranial hemorrhage. RADIA
[2018-05-07 14:58] LABS: RBC MORPHOLOGY (MULTIPLE) 3+ ANISOCYTOSIS (NORMAL)
--- NOTE | 2018-05-07 15:00 | ED Physician Documentation ---
PD HPI Fall - Stated complaint Stated Complaint: GLF - Chief complaint Chief Complaint: Neuro - History obtained from History obtained from: Patient, Family, EMS - History of Present Illness Mechanism of injury: Lost balance Fall distance: Sitting position Where injury occurred: Other (PMD's office) Timing - onset: How many hours ago (Less than one hour [employer].) Injury(ies) location: Head Associated symptoms: AMS (Decreased level of responsiveness.) Contributing factors: Anticoagulated Similar symptoms before: Diagnosis (History of similar falls, with impaired balance and with over use of narcotic medication.) Recently seen: Clinic (Was sent here from clinic, where the fall occurred.) - Additional information Additional information: The patient is a 68-year-old male who arrives via ambulance from outpatient clinic where the patient fell while in the waiting room. He was reaching for a notebook out of the pack on his wheelchair when he lost his balance and fell backwards, striking his head on the coffee table. He was extremely drowsy at the scene. His medications include warfarin which he takes for chronic atrial fibrillation. In addition he takes Percocet for chronic back pain. He took a Percocet just prior to his visit to the doctor's office. At this time he complains of occipital head pain, he denies any other pain currently. Review of Systems Constitutional: denies: Fever Ears: denies: Tinnitus/ringing Nose: denies: Congestion Throat: denies: Sore throat Cardiac: denies: Chest pain / pressure, Palpitations Respiratory: denies: Dyspnea, Cough GI: denies: Abdominal Pain, Nausea, Vomiting : denies: Dysuria Skin: denies: Rash, Laceration (s) Musculoskeletal: denies: Neck pain, Extremity swelling Neurologic: reports: Altered mental status, Headache, Head injury. denies: Focal weakness, Numbness, LOC PD PAST MEDICAL HISTORY - Past Medical History Past Medical History: Yes Cardiovascular: Hypertension, High cholesterol, Coronary artery disease, Peripheral Vascular Disease, Angina, [place], Atrial fibrillation, Valve disorder Respiratory: Shortness of breath, Other Endocrine/Autoimmune: Type 2 diabetes GI: GERD : Incontinence, Kidney stones, Other HEENT: Glaucoma, Other Psych: Anxiety Musculoskeletal: Osteoarthritis, Gout, Chronic back pain Derm: Other - Past Surgical History Past Surgical History: Yes General: Cholecystectomy, Appendectomy Ortho: Knee replacement, Rotator cuff repair, Spine surgery, Other Cardiovascular: Coronary stent, Valve replacement Derm: Skin cancer surgery - Present Medications Home Medications: Ambulatory Orders Medication Instructions Recorded Confirmed Allopurinol 100 mg PO DAILY 07/28/16 04/19/18 Furosemide 40 mg PO DAILY 07/28/16 04/19/18 Tamsulosin [Flomax] 0.4 mg PO DAILY 07/28/16 04/19/18 Escitalopram [Lexapro] 20 mg PO DAILY 06/03/17 04/19/18 Nitroglycerin [Nitrostat] 0.4 mg SL Q5M PRN tablet 06/03/17 04/19/18 Pantoprazole Sodium 40 mg PO QDAC 06/03/17 04/19/18 Potassium Chloride [Klor-Con M20] 20 meq PO TID 06/03/17 04/19/18 lamoTRIgine [Lamictal] 350 mg PO BID 06/03/17 04/19/18 Diphenoxylate/Atropine [Lomotil] 1 - 2 tab PO Q6HR PRN 06/07/17 04/19/18 HYDROcod/ACETAM 5/325 [[place] 5/325] 1 - 2 each PO Q6H PRN MDD NTE 8 07/31/17 tabs Aspirin 81 mg PO DAILY 10/21/17 04/19/18 Clopidogrel [Plavix] 75 mg PO DAILY 10/21/17 04/19/18 Insulin Glargine [Lantus Solostar] 60 - 80 units SUBQ DAILY 10/21/17 04/19/18 Promethazine [Phenergan] 25 - 50 mg PO Q6H PRN #10 tab 11/27/17 04/19/18 Docusate Sodium 250Mg Capsule 250 mg PO DAILY PRN #30 capsule 03/19/18 04/19/18 [Colace 250Mg Capsule] Ondansetron Odt [Zofran] 4 mg TL Q6H PRN #20 tablet 03/19/18 04/19/18 Oxycodone HCl/Acetaminophen 1 each PO Q6H PRN #20 tablet 03/19/18 04/19/18 [Percocet 5-325 mg Tablet] Losartan Potassium [Cozaar] 1 tab ORAL DAILY 04/19/18 04/19/18 - Allergies Allergies/Adverse Reactions: Allergies Allergy/AdvReac Type Severity Reaction Status Date / Time acetaminophen [From Percocet] Allergy Unknown Verified 03/23/18 10:01 adhesive tape Allergy Unknown Verified 03/23/18 10:01 atorvastatin calcium * Allergy Hallucinati Verified 03/23/18 10:01 [From Lipitor] ons ezetimibe [From Zetia] Allergy Respiratory Verified 03/23/18 10:01 fenofibrate Allergy Unknown Verified 03/23/18 10:01 Iodinated Contrast- Oral and Allergy Hives Verified 03/23/18 10:01 IV Dye [Iodinated Contrast Media - IV Dye] meperidine [From Demerol] Allergy Unknown Verified 03/23/18 10:01 methadone Allergy Unknown Verified 03/23/18 10:01 niacin Allergy Rash Verified 03/23/18 10:01 oxycodone [From Percocet] Allergy Unknown Verified 03/23/18 10:01 Penicillins Allergy Respiratory Verified 03/23/18 10:01 Khlslyk-Tah-Zoc Reductase Allergy Unknown Verified 03/23/18 10:01 Inhibitor venom-honey bee Allergy Respiratory Verified 03/23/18 10:01 [bee venom (honey bee)] - Social History Does the pt smoke?: No Smoking Status: Never smoker Does the pt drink ETOH?: No Does the pt have substance abuse?: No - Immunizations Immunizations are current?: Yes - POLST Patient has POLST: Yes PD ED PE NORMAL - Vitals Vital signs reviewed: Yes (Normal) - General General: Other (Drowsy deconditioned male, who responds to verbal stimulation.) - HEENT HEENT: PERRL, EOMI, Other (There is superficial abrasion on the occipital scalp , with mild tenderness to palpation. There is no bony step-off palpated.) - Neck Neck: No bony TTP, No JVD - Cardiac Cardiac: RRR - Respiratory Respiratory: No respiratory distress, Clear bilaterally - Abdomen Abdomen: Soft, Non tender, Other (Rotund abdomen.) - Back Back: No spinal TTP - Derm Derm: No rash - Extremities Extremities: No edema (Trace pedal edema.), No calf tenderness / cord, Other ( Full range of motion of the shoulders, elbows, wrists, without tenderness. No tenderness to palpation of the hips, knees, or ankles. Healing wound is present on the toes of the right foot, from a previous trip and fall.) - Neuro Neuro: Other (Drowsy but responds to verbal stimulation, and answers questions. Generalized weakness, without focal motor deficit detected.) Results - Vitals Vitals: Vital Signs - 24 hr 05/07/18 14:25 Temperature 36.8 C Heart Rate 76 Respiratory 15 Rate Blood Pressure 125/76 O2 Saturation 99 Oxygen O2 Source Nasal cannula - Labs Labs: Laboratory Tests 05/07/18 05/07/18 05/07/18 14:28 14:28 14:28 WBC 5.3 RBC 4.32 L Hgb 12.4 L Hct 37.6 L MCV 86.8 MCH 28.7 MCHC 33.1 RDW 19.5 H Plt Count 175 MPV 6.9 L Neut # (Auto) 3.4 Lymph # (Auto) 1.1 L [place] # (Auto) 0.6 Eos # (Auto) 0.1 Baso # (Auto) 0.0 Absolute Nucleated RBC 0.01 Nucleated RBC % 0.1 Manual Slide Review Indicated RBC Morph Micro Appear 3+ ANISOCYTOSIS Sodium 137 Potassium 3.8 Chloride 106 Carbon Dioxide 23 Anion Gap 8.0 BUN 15 Creatinine 1.0 Estimated GFR (MDRD) 74 L Glucose 141 H Calcium 9.7 Total Bilirubin 0.5 AST 29 ALT 28 Alkaline Phosphatase 80 Troponin I < 0.04 Total Protein 6.9 Albumin 3.9 Globulin 3.0 Albumin/Globulin Ratio 1.3 Lipase 34 - Rads (name of study) head CT Radiology: Prelim report reviewed, EMP read contemporaneously, See rad report ( No acute findings, including no intracranial) PD MEDICAL DECISION MAKING - ED course Complexity details: reviewed old records, reviewed results, re-evaluated patient , considered differential, d/w patient, d/w family, d/w PMD ED course: The patient's presentation is significant for fall caused by incoordination and drowsiness. Injuries include occipital scalp contusion. Head CT reveals no evidence of intracranial hemorrhage or skull fracture. Lab results reveal normal blood sugar and electrolytes. The patient's presentation does not suggest an acute myocardial event, sepsis, or other infectious etiology. During his course of evaluation in the emergency department the patient's cognitive status progressively improved, and he became conversant, returning to his normal baseline of cognition. I discussed with him and his family members the results of his workup, symptomatic treatment and outpatient follow-up, as well as potentially worrisome signs or symptoms that should prompt reevaluation in the emergency department. I also discussed the results of his workup with Dr. Michaud, who had seen him in clinic prior to sending him to the emergency department. - Sepsis Event Vital Signs: Vital Signs - 24 hr 05/07/18 14:25 Temperature 36.8 C Heart Rate 76 Respiratory 15 Rate Blood Pressure 125/76 O2 Saturation 99 Oxygen O2 Source Nasal cannula Departure - Departure Disposition: 01 Home, Self Care Clinical Impression: Fall Qualifiers: Encounter type: initial encounter Qualified Code(s): W19.XXXA - Unspecified fall, initial encounter Contusion of scalp Qualifiers: Encounter type: initial encounter Qualified Code(s): S00.03XA - Contusion of scalp, initial encounter Instructions: ED Head Injury Closed Follow-Up: RUI CASTELLANOS MD [Physician No Access] - Comments: Minimize Percocet, if it is making you too drowsy. Follow-up with your primary physician within 1-2 weeks. Call to schedule appointment. Return to the emergency department if you develop markedly increasing headache, persistent vomiting, or otherwise worsening symptoms.
[2018-05-07 15:44] VITALS: BP 129/80
== END 2018-05-07 15:44 | disposition home or self-care (01) ==
LOC: EDUNIT# → ED 14:21
DX: S00.03XA Contusion of scalp, initial encounter (principal); W18.30XA Fall on same level, unspecified, initial encounter; W22.09XA Striking against other stationary object, initial encounter; Y92.89 Other specified places as the place of occurrence of the external cause; I25.10 Atherosclerotic heart disease of native coronary artery without angina pectoris; I10 Essential (primary) hypertension; E78.00 Pure hypercholesterolemia, unspecified; I25.2 Old myocardial infarction; E11.51 Type 2 diabetes mellitus with diabetic peripheral angiopathy without gangrene; I48.2 Chronic atrial fibrillation; G89.29 Other chronic pain; Z79.4 Long term (current) use of insulin; Z79.01 Long term (current) use of anticoagulants; Z95.5 Presence of coronary angioplasty implant and graft; Z95.2 Presence of prosthetic heart valve; Z79.82 Long term (current) use of aspirin
CPT/HCPCS: 36415; 70450; 80053; 83690; 84484; 85025; 99283; 99284

== ENCOUNTER 2018-05-13 14:52 | Outpatient (CLI) | payer MEDICARE, OTHER ==
--- NOTE | 2018-05-13 21:32 | CONSULTATION NOTE ---
Palliative Care Follow Up - Referral Referring Provider: Dr. Yehuda Mcgill Time of Visit: [id number] Referral setting: [facility] [place] Referral Reason: Dementia/Diarrhea/Seizure - Information Sources Records reviewed: Previous records reviewed History/Review of Systems obtained from: Patient, Family ( Amber) Exam limitations: Clinical condition (patient with progressive memory loss) - History of Present Illness Update Brief HPI Update: This is a very complex 68-year-old gentleman who has multiple health issues, but most problematic has been managing his recent seizure disorder and ongoing cognitive decline. He has reestablished with Dr. Tyson Resendiz, his seizures have been less, though he did have what appeared to be a partial seizure during our visit, he has been concentrating and feeling overwhelmed in response to information provided, patient spaced out as far as partial seizure, became unresponsive though his eyes were open, for about 10-20 seconds and as he came out of it he had upper extremity tremors and it was about 10-15 seconds before he could verbally respond. He reports he does have some prodrome prior to these occurrences. reports he does have increasing cognitive deficits, memory problems, and continues to have recurrent falls. He attributes this not only to balance, but to his "spells". reports he cannot really manage anything complex at this point in time, she does oversee him at all times as best she can, the patient still continues with impulsivity and poor decision-making. Patient does have metastatic prostate cancer, post treatment radiation and androgen suppression. He had a TAVR and stent placement recently for aortic stenosis, with a complication of a bleed and most likely stroke. He has had a ureteral stent recently placed, with residual hematuria from this. He has complicated diabetes, chronic pain syndrome related to severe disc disease, severe underlying depression, anxiety, diarrhea, and functional decline. Social History - Living Situation Living arrangement: At home Living Situation: With spouse/s.o. Support System: Daughter and her grandson had been living with patient and , getting ready to move at the end of the month. Expressing grief and loss, had been a great support and distraction to have grandson present.Daughter had also been able to help some with the care of her father. Medications/Allergies - Medications Home Medications: Ambulatory Orders Medication Instructions Recorded Confirmed Allopurinol 100 mg PO DAILY 07/28/16 04/19/18 Furosemide 40 mg PO DAILY 07/28/16 04/19/18 Tamsulosin [Flomax] 0.4 mg PO DAILY 07/28/16 04/19/18 Escitalopram [Lexapro] 20 mg PO DAILY 06/03/17 04/19/18 Nitroglycerin [Nitrostat] 0.4 mg SL Q5M PRN tablet 06/03/17 04/19/18 Pantoprazole Sodium 40 mg PO QDAC 06/03/17 04/19/18 Potassium Chloride [Klor-Con M20] 20 meq PO TID 06/03/17 04/19/18 lamoTRIgine [Lamictal] 350 mg PO BID 06/03/17 04/19/18 Diphenoxylate/Atropine [Lomotil] 1 - 2 tab PO Q6HR PRN 06/07/17 04/19/18 HYDROcod/ACETAM 5/325 [[place] 5/325] 1 - 2 each PO Q6H PRN MDD NTE 8 07/31/17 04/19/18 tabs Aspirin 81 mg PO DAILY 10/21/17 04/19/18 Clopidogrel [Plavix] 75 mg PO DAILY 10/21/17 04/19/18 Insulin Glargine [Lantus Solostar] 60 - 80 units SUBQ DAILY 10/21/17 04/19/18 Promethazine [Phenergan] 25 - 50 mg PO Q6H PRN #10 tab 11/27/17 04/19/18 Docusate Sodium 250Mg Capsule 250 mg PO DAILY PRN #30 capsule 03/19/18 04/19/18 [Colace 250Mg Capsule] Ondansetron Odt [Zofran] 4 mg TL Q6H PRN #20 tablet 03/19/18 04/19/18 Oxycodone HCl/Acetaminophen 1 each PO Q6H PRN #20 tablet 03/19/18 04/19/18 [Percocet 5-325 mg Tablet] Losartan Potassium [Cozaar] 1 tab ORAL DAILY 04/19/18 04/19/18 - Allergies Allergies/Adverse Reactions: Allergies Allergy/AdvReac Type Severity Reaction Status Date / Time acetaminophen [From Percocet] Allergy Unknown Verified 03/23/18 10:01 adhesive tape Allergy Unknown Verified 03/23/18 10:01 atorvastatin calcium * Allergy Hallucinati Verified 03/23/18 10:01 [From Lipitor] ons ezetimibe [From Zetia] Allergy Respiratory Verified 03/23/18 10:01 fenofibrate Allergy Unknown Verified 03/23/18 10:01 Iodinated Contrast- Oral and Allergy Hives Verified 03/23/18 10:01 IV Dye [Iodinated Contrast Media - IV Dye] meperidine [From Demerol] Allergy Unknown Verified 03/23/18 10:01 methadone Allergy Unknown Verified 03/23/18 10:01 niacin Allergy Rash Verified 03/23/18 10:01 oxycodone [From Percocet] Allergy Unknown Verified 03/23/18 10:01 Penicillins Allergy Respiratory Verified 03/23/18 10:01 Sfvlxpg-Tse-Eqg Reductase Allergy Unknown Verified 03/23/18 10:01 Inhibitor venom-honey bee Allergy Respiratory Verified 03/23/18 10:01 [bee venom (honey bee)] Review of Systems - Constitutional Constitutional: reports: Fatigue, Weakness, Weight stable. denies: Fever - Eyes Eyes: reports: Vision loss - Ears, Nose & Throat Ears, Nose & Throat: reports: Hearing loss, Vertigo, Dry mouth - Cardiovascular Cardiovascular: reports: Edema, Exertional dyspnea, Decr. exercise tolerance - Respiratory Respiratory: reports: SOB with exertion. denies: SOB at rest - Gastrointestinal Gastrointestinal: reports: Diarrhea (Continues to be problematic, using Lomotil about 6 tabs a day, does have urgency and now with decreased mobility and increased confusion more incontinence.), Good appetite. denies: Nausea - Genitourinary Genitourinary: reports: Frequency, Urgency - Musculoskeletal Musculoskeletal: reports: Muscle pain, Back pain, Muscle aches, Stiffness, Limited range of motion, Muscle weakness, Joint pain, Joint swelling, Assistive devices (uses walker), Other (continued falls) - Integumentary Integumentary: reports: Dryness - Neurological Neurological: reports: General weakness, Memory problems (worsening;), Seizures, Incoordination, Slurred speech - Psychiatric Psychiatric: reports: Depression, Anxiety, Hallucinations (presents with increased episodes of paranoia) - Endocrine Endocrine: reports: Diabetes type 2 - Hematologic/Lymphatic Hematologic/Lymphatic: reports: Anemia - All Other Systems All Other Systems: reports: Reviewed and negative Physical Exam - Vital Signs Pulse Rate: 83 Respiratory Rate: 18 O2 Saturation: 94 (ra @ rest) Blood Pressure: 116/69 - Physical Exam General Appearance: positive: Mild distress, Anxious Eyes Bilateral: positive: Normal inspection, Other (easily tears; conjunctivae with some redness) ENT: positive: Other (edentulous) Neck: positive: No JVD, Trachea midline, Other (thick neck) Cardiovascular: positive: Regular rate & rhythm Respiratory: positive: Diminished in bases. negative: Wheezes, Rales, Rhonchi Abdomen: positive: Non-tender, Nml bowel sounds, Distended, Taut, Obese Skin: positive: Pallor, Dryness Extremities: positive: No pedal edema Neurologic/Psychiatric: positive: Mood/affect nml, Disoriented to time, Weakness, Other Palliative Care - POLST Patient has POLST: Yes POLST Status: DNR, Selective Treatment Pain: Pain unchanged, Location (mostly back and joint pain; still has severe residual pain in pelvis worsening prior to bowels moving; using Vicodin 5 mg/APAP 325 mg up to 4x a day;) Tiredness/Fatigue: Severe (7-10) Drowsiness/Sedation: Moderate (4-6) Nausea: None Depression: Moderate (4-6) Anxiety: Moderate (4-6) Dyspnea: Moderate (4-6) Anorexia: Mild (1-3) Sleep: Variable sleep pattern Feelings of wellbeing/Perceived Quality of Life: Fair, Worsening Performance Status: Patient continues to lose ground with his functional status, his balance is soft, and he is deconditioned. Patient is interested in physical therapy, but concerned relating to fatigue. Most likely would benefit from home therapies, does need some assistance with bathing, would be good to get as safety of bowel in the home as well. Patient is needing increased assistance with his dressing as well, is discouraged by his increasing dependence. - Palliative Care Discussion: Both patient and feeling somewhat overwhelmed, his multiple medical problems continue to escalate, impacting his quality of life. Patient's most significant issues are related to his cognitive decline, and ongoing diarrhea. Stressors have increased with changing of home situation, daughter to move out end of the month, this has both positives and negatives. Patient's care needs are increasing and with own health issues and caregiver fatigue. Results - Lab Results Lab results reviewed: Yes Impression and Recommendations - Palliative Care Impression: This is a 68-year-old gentleman who continues to decline both cognitively and functionally. He does have a long list of comorbidities adding to his complexity, and fairly high symptom burden palliative care continue to provide support. It is recommended at this point in time physical and occupational therapy with [employer]NAGER [employer] support. Recommendations/Counseling Done: 1. Medication adherence. Unfortunately did not bring an updated medication list, reports is that she knows nothing is changed is his prescription for his seizures. 2. Diarrhea. Patient still having urgent and uncontrolled symptoms of diarr hea, is using Lomotil about 2 tabs 3-4 times a day. Patient in his cognitive status refused to wear depends. Counseling provided will initiate Lomotil alternating with Imodium, has been on Lomotil for long period of time. Patient also counseled secondary to high risk of falls, and ongoing management as well as caregiver fatigue, recommended does wear depends patient in agreement. 3. Acute on chronic pain. Patient's underlying pain is been fairly well- controlled on the hydrocodone, does have intermittent acute pain secondary to falls. No changes made currently. Patient is taking in response to pain, does fluctuate, not a candidate at this point in time for long-acting pain medication. 4. Generalized weakness. and patient in agreement to home therapy, would like to start after daughter has left, this would be early May. Will go ahead and do [id number] and get order for home health. Patient still has Medicare A, will need social work to help assist with follow-up on Medicare B, still has medicate D supplement. 5. Advanced care planning. is expressing concerns about patient's ongoing decline, how going to manage in the long-term, and need for possibly increased resources. Patient with enough insight is finding his current issues distressing. Counseling to normalize grief and loss process, patient does have a [employer], has multiple comorbidities but nothing pressing as far as deterioration at this time it is generalized over all decline. Patient on the Thais Index that looks at population community dwelling adults over 65 and all cause Year mortality. Patient scores a 10 which does put his risk at 1 year mortality at 46.8%. Risk calculators cannot predict the future for any one individual, but gives an estimate of how many people with similar risk factors will live and , but not identify who will live in who will . Slpg-lu-[id number] for home health. It is a taxing considerable effort for the patient leave the home secondary to his difficulty with walking, increased fatigue, and both functional and cognitive decline. Patient would benefit from physical therapy for home exercise program, for endurance, balance training, and home safety. Occupational therapy for bathing set up, ADL management, and dressing, and [employer] for long-term planning, short-term issues regarding insurance, as well as consider eliane application.
== END 2018-05-13 14:53 | disposition home or self-care (01) ==
LOC: PC 14:52
PROVIDERS: ATTEND Nurse Practitioner Adult Health
DX: Z51.5 Encounter for palliative care (principal); F03.90 Unspecified dementia, unspecified severity, without behavioral disturbance, psychotic disturbance, mood disturbance, and anxiety; R19.7 Diarrhea, unspecified; G89.29 Other chronic pain; R53.1 Weakness; Z91.81 History of falling; F32.9 Major depressive disorder, single episode, unspecified; F41.9 Anxiety disorder, unspecified; R44.3 Hallucinations, unspecified; R56.9 Unspecified convulsions; R35.0 Frequency of micturition; T83.83XD Hemorrhage due to genitourinary prosthetic devices, implants and grafts, subsequent encounter; R31.9 Hematuria, unspecified; H54.7 Unspecified visual loss; H91.90 Unspecified hearing loss, unspecified ear; R47.81 Slurred speech; E11.42 Type 2 diabetes mellitus with diabetic polyneuropathy; C61 Malignant neoplasm of prostate; C77.5 Secondary and unspecified malignant neoplasm of intrapelvic lymph nodes; I35.0 Nonrheumatic aortic (valve) stenosis; I10 Essential (primary) hypertension; Z66 Do not resuscitate; Z79.891 Long term (current) use of opiate analgesic; Z79.82 Long term (current) use of aspirin; Z79.02 Long term (current) use of antithrombotics/antiplatelets; Z79.4 Long term (current) use of insulin
CPT/HCPCS: 99215

== ENCOUNTER 2018-07-05 15:53 | Outpatient (CLI) | payer MEDICARE, OTHER ==
--- NOTE | 2018-07-06 14:40 | XRAY Report ---
Reason: NECK PAIN Procedure Date: 07/05/2018 Accession Number: [id number] / [id number] Procedure: XR - Cervical Spine 2 View CPT Code: FULL RESULT: EXAM: CERVICAL SPINE RADIOGRAPHY EXAM DATE: 07/05/2018 04:44 PM. CLINICAL HISTORY: Neck pain. COMPARISONS: None. TECHNIQUE: 3 views. FINDINGS: Alignment: Preserved with no overt listhesis. Bones: The cervical vertebral bodies and posterior elements are well visualized from the skull base through C6-C7. No fractures or bone lesions. Disks: There is multilevel loss of disk space height which is most pronounced at C5-C6 and C6-C7. Facets: At least moderate facet arthropathy is noted throughout the cervical spine. Soft Tissues: Normal. No prevertebral soft tissue swelling. The visualized lung apices are clear. IMPRESSION: Multilevel degenerative changes as described. RADIA
== END 2018-07-05 15:54 | disposition home or self-care (01) ==
LOC: DI 15:53
PROVIDERS: ATTEND Family Medicine
DX: M50.322 Other cervical disc degeneration at C5-C6 level (principal)
CPT/HCPCS: 72040

== ENCOUNTER 2018-07-25 21:22 | Outpatient (CLI) | payer MEDICARE | END 2018-07-25 21:23 | disposition critical access hospital (66) | LOC: EMS 21:22 | PROVIDERS: ATTEND Surgery | DX: R07.89 Other chest pain (principal); W01.190A Fall on same level from slipping, tripping and stumbling with subsequent striking against furniture, initial encounter; Y92.009 Unspecified place in unspecified non-institutional (private) residence as the place of occurrence of the external cause | CPT/HCPCS: A0425; A0427 ==

== ENCOUNTER 2018-07-25 21:40 | Emergency (ER) | payer MEDICARE, OTHER ==
--- NOTE | 2018-07-25 21:50 | ED Physician Documentation ---
PD HPI Fall - Stated complaint Stated Complaint: FALL - History obtained from History obtained from: Patient - History of Present Illness Mechanism of injury: Lost balance (was standing and then backed up, tripped on rug. struck right anterolateral chest wiehn) Fall distance: Standing position Timing - onset: How many hours ago (1-2), Today Injury(ies) location: Chest (he is hurting right ribs/cehst, but no abd pain but is tender. No neuro symptoms) Quality of pain: Pain, Sharp Associated symptoms: No: LOC, Amnesia, Seizures, Paresthesias Symptoms improve with: Ice Worsens with: Movement, Palpation (right anterolateral chest about ribs 8-10) Review of Systems Constitutional: denies: Fever Nose: denies: Rhinorrhea / runny nose, Congestion Throat: denies: Sore throat Cardiac: reports: Chest pain / pressure. denies: Palpitations Respiratory: reports: Dyspnea, Cough GI: reports: Abdominal Pain PD PAST MEDICAL HISTORY - Past Medical History Cardiovascular: Hypertension, High cholesterol, Coronary artery disease, Peripheral Vascular Disease, Angina, [place], Atrial fibrillation, Valve disorder Respiratory: Shortness of breath, Other Endocrine/Autoimmune: Type 2 diabetes GI: GERD : Incontinence, Kidney stones, Other HEENT: Glaucoma, Other Psych: Anxiety Musculoskeletal: Osteoarthritis, Gout, Chronic back pain Derm: Other - Past Surgical History Past Surgical History: Yes General: Cholecystectomy, Appendectomy Ortho: Knee replacement, Rotator cuff repair, Spine surgery, Other Cardiovascular: Coronary stent, Valve replacement Derm: Skin cancer surgery - Present Medications Home Medications: Ambulatory Orders Medication Instructions Recorded Confirmed Allopurinol 100 mg PO DAILY 07/28/16 07/19/18 Furosemide 40 mg PO DAILY 07/28/16 07/19/18 Tamsulosin [Flomax] 0.4 mg PO DAILY 07/28/16 07/19/18 Escitalopram [Lexapro] 20 mg PO DAILY 06/03/17 07/19/18 Nitroglycerin [Nitrostat] 0.4 mg SL Q5M PRN tablet 06/03/17 07/19/18 Pantoprazole Sodium 40 mg PO QDAC 06/03/17 07/19/18 Potassium Chloride [Klor-Con M20] 20 meq PO TID 06/03/17 07/19/18 lamoTRIgine [Lamictal] 350 mg PO BID 06/03/17 07/19/18 Diphenoxylate/Atropine [Lomotil] 1 - 2 tab PO Q6HR PRN 06/07/17 07/19/18 HYDROcod/ACETAM 5/325 [[place] 5/325] 1 - 2 each PO Q6H PRN MDD NTE 8 07/31/17 07/19/18 tabs Aspirin 81 mg PO DAILY 10/21/17 07/19/18 Clopidogrel [Plavix] 75 mg PO DAILY 10/21/17 07/19/18 Insulin Glargine [Lantus Solostar] 60 - 80 units SUBQ DAILY 10/21/17 07/19/18 Promethazine [Phenergan] 25 - 50 mg PO Q6H PRN #10 tab 11/27/17 07/19/18 Ondansetron Odt [Zofran] 4 mg TL Q6H PRN #20 tablet 03/19/18 07/19/18 Losartan Potassium [Cozaar] 50 mg ORAL DAILY 04/19/18 07/19/18 - Allergies Allergies/Adverse Reactions: Allergies Allergy/AdvReac Type Severity Reaction Status Date / Time acetaminophen [From Percocet] Allergy Unknown Verified 03/23/18 10:01 adhesive tape Allergy Unknown Verified 03/23/18 10:01 atorvastatin calcium * Allergy Hallucinati Verified 03/23/18 10:01 [From Lipitor] ons ezetimibe [From Zetia] Allergy Respiratory Verified 03/23/18 10:01 fenofibrate Allergy Unknown Verified 03/23/18 10:01 Iodinated Contrast- Oral and Allergy Hives Verified 03/23/18 10:01 IV Dye [Iodinated Contrast Media - IV Dye] meperidine [From Demerol] Allergy Unknown Verified 03/23/18 10:01 methadone Allergy Unknown Verified 03/23/18 10:01 niacin Allergy Rash Verified 03/23/18 10:01 oxycodone [From Percocet] Allergy Unknown Verified 03/23/18 10:01 Penicillins Allergy Respiratory Verified 03/23/18 10:01 Dailkvw-Zfw-Cpi Reductase Allergy Unknown Verified 03/23/18 10:01 Inhibitor venom-honey bee Allergy Respiratory Verified 03/23/18 10:01 [bee venom (honey bee)] - Social History Does the pt smoke?: No Smoking Status: Never smoker Does the pt drink ETOH?: No Does the pt have substance abuse?: No - Immunizations Immunizations are current?: Yes - POLST Patient has POLST: Yes PD ED PE NORMAL - Vitals Vital signs reviewed: Yes - General General: Alert and oriented X 3, No acute distress, Well developed/nourished - HEENT HEENT: Ears normal, Moist mucous membranes, Pharynx benign, Dentition benign - Neck Neck: Supple, no meningeal sign, No adenopathy - Abdomen Abdomen: Normal bowel sounds, Soft - Male Male : Deferred - Rectal Rectal: Deferred - Back Back: No spinal TTP - Derm Derm: Normal color Results - Vitals Vitals: Vital Signs - 24 hr 07/26/18 07/26/18 07/26/18 01:31 01:33 02:33 Heart Rate 91 76 76 Respiratory 20 20 18 Rate Blood Pressure 154/71 H 149/67 H 140/72 H O2 Saturation 93 94 92 Oxygen O2 Source Room air - Labs Labs: Laboratory Tests 07/25/18 22:30 Sodium 135 Potassium 3.8 Chloride 103 Carbon Dioxide 24 Anion Gap 8.0 BUN 23 H Creatinine 1.2 Estimated GFR (MDRD) 60 L Glucose 227 H Calcium 10.1 Total Bilirubin 0.4 AST 25 ALT 25 Alkaline Phosphatase 68 Total Protein 7.0 Albumin 4.1 Globulin 2.9 Albumin/Globulin Ratio 1.4 Lipase 41 - Rads (name of study) chest angio Radiology: Prelim report reviewed, EMP read contemporaneously, See rad report Departure - Departure Disposition: 01 Home, Self Care Clinical Impression: Fall from slip, trip, or stumble Qualifiers: Encounter type: initial encounter Qualified Code(s): W01.0XXA - Fall on same level from slipping, tripping and stumbling without subsequent striking against object, initial encounter Chest wall contusion Qualifiers: Encounter type: initial encounter Laterality: right Qualified Code(s): S20.211A - Contusion of right front wall of thorax, initial encounter Condition: Stable Record reviewed to determine appropriate education?: Yes Instructions: ED Contusion Chest Wall Follow-Up: Brent Colon MD [Primary Care Provider] - Comments: There are no signs of fractures acutely nor internal organ injury based on the scans. There is some soft tissue swelling on the chest wall. Use your home medications for pain as needed. I would presume you will be sore for several days to week and get better from the bruising. Discharge Date/Time: 07/26/18 02:37
[2018-07-25] MEDS ORDERED: SODIUM CHLORIDE 0.9% 1,000 ML IV ONE (22:12)
[2018-07-25] MEDS ORDERED: MORPHINE 10 MG/ML VIAL IVP STA (22:21)
[2018-07-25 22:58] LABS: ALBUMIN 4.1 g/dL (3.2-5.5); ALBUMIN/GLOBULIN RATIO 1.4 (1.0-2.2); BILIRUBIN,TOTAL 0.4 mg/dL (0.2-1.0); CALCIUM 10.1 mg/dL (8.5-10.3); CREATININE 1.2 mg/dL (0.6-1.2)
--- NOTE | 2018-07-25 23:50 | CT Report ---
Reason: fall, on Plavix, no apparent head injury Procedure Date: 07/25/2018 Accession Number: [id number] / [id number] Procedure: CT - Head W/O CPT Code: FULL RESULT: EXAM: CT HEAD EXAM DATE: 07/25/2018 11:11 PM. CLINICAL HISTORY: Fall, on Plavix, no apparent head injury. COMPARISON: 05/07/2018. TECHNIQUE: Multiaxial CT images were obtained from the foramen magnum to the vertex. Reformats: Sagittal and coronal. IV contrast: None. In accordance with CT protocol optimization, one or more of the following dose reduction techniques were utilized for this exam: automated exposure control, adjustment of mA and/or KV based on patient size, or use of iterative reconstructive technique. FINDINGS: Parenchyma: No intraparenchymal hemorrhage. No evidence of mass, midline shift, or CT findings of infarction. Juarez-white differentiation is distinct. Extraaxial Spaces: Normal for age. No subdural or epidural collections identified. Ventricles: Normal in size and position. Sinuses and Orbits: Imaged paranasal sinuses, orbits, and mastoids show no significant abnormality. Bones: No evidence of fracture or calvarial defect. Other: None. IMPRESSION: No acute or focal intracranial abnormality. Stable findings since 05/07/2018. RADIA
--- NOTE | 2018-07-26 00:13 | CT Report ---
Reason: fall with right abd/chest pain Procedure Date: 07/25/2018 Accession Number: [id number] / [id number] Procedure: CT - Abdomen/Pelvis W/O CPT Code: FULL RESULT: EXAM: CT CHEST, ABDOMEN AND PELVIS EXAM DATE: 07/25/2018 11:38 PM. CLINICAL HISTORY: Fall with right chest/abdomen pain. COMPARISONS: CHEST W/O 03/19/2018 9:49 PM ABDOMEN/PELVIS W/O 10/29/2015 4:16 PM ABDOMEN/PELVIS W/O 07/25/2018 11:14 PM ABDOMEN/PELVIS W/O 12/11/2016 11:39 AM. TECHNIQUE: Routine helical CT imaging was performed through the chest, abdomen, and pelvis. IV contrast: No. Enteric contrast: No. Reconstructions: Coronal and sagittal. In accordance with CT protocol optimization, one or more of the following dose reduction techniques were utilized for this exam: automated exposure control, adjustment of mA and/or KV based on patient size, or use of iterative reconstructive technique. FINDINGS: Mediastinum: 1.1 cm calcification at the right thyroid lobe. No thoracic aortic aneurysm. Aortic valve prosthesis. Coronary artery calcification. Normal heart size. No mediastinal or hilar lymphadenopathy. Mild right anterior chest wall subcutaneous contusions. Elevated right hemidiaphragm with moderate elevation. Lungs: No pleural effusion or pneumothorax. Right middle lobe pulmonary nodule measures 6 mm, unchanged from 10/29/2015 consistent with benign. Liver: Small focal calcification at the medial dome of the liver. Gallbladder: Status post cholecystectomy. Bile ducts: Unremarkable. Pancreas: Unremarkable. Spleen: Unremarkable. Adrenals: Unremarkable. Kidneys: Left mid pole posterior exophytic renal mass measuring 2.1 x 2 cm, increased compared to the prior, Hounsfield units of 46, could represent a solid renal mass as seen with renal cell carcinoma versus a lower density proteinaceous renal cyst. Further workup is recommended. Recommend a renal ultrasound to further evaluate. Multiple left lower pole renal calculi, largest measuring 1 cm. No hydronephrosis. No ureteral calculi. Bowel: No evidence for bowel obstruction. No acute bowel findings are seen. The appendix is not seen. Ventral hernia mesh. Small fat-containing mesh to the left side of the mesh at the umbilical region, has a neck of 7 mm and measures 4.8 x 3.1 cm, and this was seen on the prior. No free fluid or free air. Pelvis: Small layering bladder calculi, new. Enlarged prostate measuring 4.6 cm. Vascular structures: No acute findings. Bilateral hip mild subcutaneous fat stranding, could be chronic versus mild contusions. Right lateral seventh chronic partial nonunion rib fracture. Right anterolateral third rib fracture is new but this has a more chronic healed appearance. Right anterolateral fifth rib fracture is new but appears chronic and healed. No acute rib fracture is seen. No acute bone findings are seen. Grade 1 anterolisthesis of L4 on L5 with chronic right L4 pars defect, present on the prior. Postsurgical changes of the lower lumbar spine. No acute bone findings are seen. No evidence for solid organ injury. Limited without IV contrast. IMPRESSION: 1. Mild right anterior chest wall subcutaneous contusions. Bilateral hip mild subcutaneous fat stranding, could be chronic versus mild contusions. 2. Small layering bladder calculi, new. 3. Enlarged prostate measuring 4.6 cm. 4. Ventral hernia mesh. Small fat-containing mesh to the left side of the mesh at the umbilical region, has a neck of 7 mm and measures 4.8 x 3.1 cm, and this was seen on the prior. 5. Left mid pole posterior exophytic renal mass measuring 2.1 x 2 cm, increased compared to the prior, Hounsfield units of 46, could represent a solid renal mass as seen with renal cell carcinoma versus a lower density proteinaceous renal cyst. Further workup is recommended. Recommend a renal ultrasound to further evaluate. 6. Multiple left renal calculi, nonobstructing. 7. Right middle lobe pulmonary nodule measures 6 mm, unchanged from 10/29/2015 consistent with benign. 8. No evidence for solid organ injury. Limited without IV contrast. No free fluid. 9. No acute fractures are seen. See above. RADIA
[2018-07-26] MEDS ORDERED: KETOROLAC 15 MG/ML VIAL IVP STA (01:11)
[2018-07-26] MEDS ORDERED: HYDROmorphone 2 MG/ML VIAL IVP STA (01:11)
[2018-07-26 02:34] VITALS: BP 140/72
== END 2018-07-26 02:37 | disposition home or self-care (01) ==
LOC: EDUNIT# → ED 21:40
DX: S20.211A Contusion of right front wall of thorax, initial encounter (principal); W01.10XA Fall on same level from slipping, tripping and stumbling with subsequent striking against unspecified object, initial encounter; I44.7 Left bundle-branch block, unspecified; I48.91 Unspecified atrial fibrillation; I10 Essential (primary) hypertension; E11.51 Type 2 diabetes mellitus with diabetic peripheral angiopathy without gangrene; E78.00 Pure hypercholesterolemia, unspecified; I25.10 Atherosclerotic heart disease of native coronary artery without angina pectoris; I25.2 Old myocardial infarction; Z95.5 Presence of coronary angioplasty implant and graft; Z79.4 Long term (current) use of insulin; Z79.01 Long term (current) use of anticoagulants; Z95.2 Presence of prosthetic heart valve; Z79.82 Long term (current) use of aspirin
CPT/HCPCS: 36415; 70450; 71250; 74176; 80053; 83690; 93005; 96361; 96374; 96375; 99283; 99284; J1170

== ENCOUNTER 2018-09-05 23:27 | Emergency (ER) | payer MEDICARE ==
[2018-09-05] MEDS ORDERED: ONDANSETRON 4 MG/2 ML VIAL IVP STA (23:52)
[2018-09-05] MEDS ORDERED: SODIUM CHLORIDE 0.9% 1,000 ML IV ONE ×2 (23:53)
--- NOTE | 2018-09-05 23:59 | ED Physician Documentation ---
PD HPI NVD - Stated complaint Stated Complaint: ABD PX/VOM - Chief complaint Chief Complaint: Abd Pain - History obtained from History obtained from: Patient, Family - History of Present Illness Timing - onset: How many days ago (3) Timing - duration: Days (3) Timing - details: Gradual onset Pain level max: 7 Pain level now: 6 Associated symptoms: Abdominal pain (generalized). No: Chest pain, Hematemesis Contributing factors: Diabetes. No: Sick contact, Bad food, Travel, Recent antibiotics, Alcohol use, Anticoagulated Improved by: Vomiting Worsened by: Eating Similar symptoms before: Has not had sx before Recently seen: Not recently seen - Additonal information Additional information: pt with metastatic prostate cancer, dementia, and diabetes. currently on palliative care Review of Systems Ten Systems: 10 systems reviewed and negative Constitutional: denies: Fever, Chills Ears: denies: Ear pain Nose: denies: Rhinorrhea / runny nose, Congestion Throat: denies: Sore throat Cardiac: denies: Chest pain / pressure Respiratory: denies: Cough GI: reports: Nausea, Vomiting, Diarrhea. denies: Hematemesis, Bloody / black stool : denies: Dysuria Skin: denies: Rash Musculoskeletal: denies: Neck pain, Back pain Neurologic: denies: Focal weakness, Numbness, Headache PD PAST MEDICAL HISTORY - Past Medical History Past Medical History: Yes Cardiovascular: Hypertension, High cholesterol, Coronary artery disease, Peripheral Vascular Disease, Angina, MA, Atrial fibrillation, Valve disorder Respiratory: Shortness of breath, Other Neuro: Seizure disorder Endocrine/Autoimmune: Type 2 diabetes GI: GERD : Incontinence, Kidney stones, Other HEENT: Glaucoma, Other Psych: Anxiety Musculoskeletal: Osteoarthritis, Gout, Chronic back pain Derm: Other - Past Surgical History Past Surgical History: Yes General: Cholecystectomy, Appendectomy Ortho: Knee replacement, Rotator cuff repair, Spine surgery, Other Cardiovascular: Coronary stent, Valve replacement Derm: Skin cancer surgery - Present Medications Home Medications: Ambulatory Orders Medication Instructions Recorded Confirmed Allopurinol 100 mg PO DAILY 07/28/16 09/05/18 Furosemide 40 mg PO DAILY 07/28/16 09/05/18 Tamsulosin [Flomax] 0.4 mg PO DAILY 07/28/16 09/05/18 Escitalopram [Lexapro] 20 mg PO DAILY 06/03/17 09/05/18 Nitroglycerin [Nitrostat] 0.4 mg SL Q5M PRN tablet 06/03/17 09/05/18 Pantoprazole Sodium 40 mg PO QDAC 06/03/17 09/05/18 Potassium Chloride [Klor-Con M20] 20 meq PO TID 06/03/17 09/05/18 lamoTRIgine [Lamictal] 350 mg PO BID 06/03/17 09/05/18 Diphenoxylate/Atropine [Lomotil] 1 - 2 tab PO Q6HR PRN 06/07/17 09/05/18 HYDROcod/ACETAM 5/325 [[place] 5/325] 1 - 2 each PO Q6H PRN MDD NTE 8 07/31/17 09/05/18 tabs Aspirin 81 mg PO DAILY 10/21/17 09/05/18 Clopidogrel [Plavix] 75 mg PO DAILY 10/21/17 09/05/18 Insulin Glargine [Lantus Solostar] 60 - 80 units SUBQ DAILY 10/21/17 09/05/18 Promethazine [Phenergan] 25 - 50 mg PO Q6H PRN #10 tab 11/27/17 09/05/18 Ondansetron Odt [Zofran] 4 mg TL Q6H PRN #20 tablet 03/19/18 09/05/18 Losartan Potassium [Cozaar] 50 mg ORAL DAILY 04/19/18 09/05/18 Promethazine Supp [Phenergan Supp] 25 mg VA Q6H PRN #10 supp 09/06/18 Promethazine [Phenergan] 25 mg PO Q6H PRN #10 tab 09/06/18 - Allergies Allergies/Adverse Reactions: Allergies Allergy/AdvReac Type Severity Reaction Status Date / Time acetaminophen [From Percocet] Allergy Unknown Verified 09/05/18 23:36 adhesive tape Allergy Unknown Verified 09/05/18 23:36 atorvastatin calcium * Allergy Hallucinati Verified 09/05/18 23:36 [From Lipitor] ons ezetimibe [From Zetia] Allergy Respiratory Verified 09/05/18 23:36 fenofibrate Allergy Unknown Verified 09/05/18 23:36 Iodinated Contrast- Oral and Allergy Hives Verified 09/05/18 23:36 IV Dye [Iodinated Contrast Media - IV Dye] meperidine [From Demerol] Allergy Unknown Verified 09/05/18 23:36 methadone Allergy Unknown Verified 09/05/18 23:36 niacin Allergy Rash Verified 09/05/18 23:36 oxycodone [From Percocet] Allergy Unknown Verified 09/05/18 23:36 Penicillins Allergy Respiratory Verified 09/05/18 23:36 Ffxxkxg-Fkb-Aug Reductase Allergy Unknown Verified 09/05/18 23:36 Inhibitor venom-honey bee Allergy Respiratory Verified 09/05/18 23:36 [bee venom (honey bee)] - Social History Does the pt smoke?: No Smoking Status: Never smoker Does the pt drink ETOH?: No Does the pt have substance abuse?: No - Immunizations Immunizations are current?: Yes - POLST Patient has POLST: Yes PD ED PE NORMAL - Vitals Vital signs reviewed: Yes - General General: Alert and oriented X 3, No acute distress, Well developed/nourished - HEENT HEENT: PERRL, Moist mucous membranes - Neck Neck: Supple, no meningeal sign - Cardiac Cardiac: RRR, Strong equal pulses - Respiratory Respiratory: No respiratory distress, Clear bilaterally - Abdomen Abdomen: Soft, Other (diffuse ttp. mild distention. no peritoneal signs. reducib le umbilical hernia) - Derm Derm: Warm and dry - Extremities Extremities: No deformity - Neuro Neuro: Alert and oriented X 3 - Psych Psych: Normal mood, Normal affect Results - Vitals Vitals: Vital Signs - 24 hr 09/05/18 09/06/18 23:30 02:37 Temperature 36.6 C Heart Rate 111 H 83 Respiratory 19 16 Rate Blood Pressure 126/67 106/79 O2 Saturation 94 93 Oxygen O2 Source Room air - Labs Labs: Laboratory Tests 09/05/18 09/05/18 09/06/18 23:50 23:50 00:08 WBC 9.4 RBC 4.88 Hgb 14.7 Hct 44.3 MCV 90.8 MCH 30.2 MCHC 33.2 RDW 15.5 H Plt Count 227 MPV 6.8 L Neut # (Auto) 6.8 H Lymph # (Auto) 1.2 L Sunflower # (Auto) 1.1 H Eos # (Auto) 0.1 Baso # (Auto) 0.1 Absolute Nucleated RBC 0.01 Nucleated RBC % 0.1 VBG pH VBG pCO2 VBG pO2 VBG HCO3 VBG Total CO2 VBG O2 Saturation VBG Base Excess Sodium 138 Potassium 4.0 Chloride 105 Carbon Dioxide 24 Anion Gap 9.0 BUN 21 H Creatinine 0.9 Estimated GFR (MDRD) 83 L Glucose 180 H Calcium 10.8 H Total Bilirubin 1.1 H AST 25 ALT 23 Alkaline Phosphatase 77 Total Protein 7.3 Albumin 4.1 Globulin 3.2 Albumin/Globulin Ratio 1.3 Lipase 27 Serum Ketones NEGATIVE 09/06/18 00:08 WBC RBC Hgb Hct MCV MCH MCHC RDW Plt Count MPV Neut # (Auto) Lymph # (Auto) Sunflower # (Auto) Eos # (Auto) Baso # (Auto) Absolute Nucleated RBC Nucleated RBC % VBG pH 7.410 VBG pCO2 40.8 L VBG pO2 47.6 H VBG HCO3 25.3 VBG Total CO2 26.5 VBG O2 Saturation 83.6 H VBG Base Excess 0.6 Sodium Potassium Chloride Carbon Dioxide Anion Gap BUN Creatinine Estimated GFR (MDRD) Glucose Calcium Total Bilirubin AST ALT Alkaline Phosphatase Total Protein Albumin Globulin Albumin/Globulin Ratio Lipase Serum Ketones - Rads (name of study) CT abd/pelvis Radiology: Prelim report reviewed, EMP read contemporaneously, See rad report (Diffuse mild small bowel distention with adjacent mesenteric edema and mild free fluid. No bowel wall thickening or discrete transition seen. Suspect gastroenteritis versus early/partial obstruction. 2. Small nonobstructing left renal pelvic and ureteral stones measuring up to 6 x 3 mm in the mid to distal left ureter. Additional several nonobstructing left renal stones measuring up to 9 mm. 3. Fatty liver. 4. Post-cholecystectomy. 5. Small layering urinary bladder stones again noted. 6. Enlarged prostate. 7. Subcutaneous edema at the umbilicus and correlation with clinical exam suggested to exclude cellulitis. ) PD MEDICAL DECISION MAKING - ED course Complexity details: reviewed results, re-evaluated patient, considered differential, d/w patient, d/w family ED course: 68-year-old male presents to the emergency department what appears to be a viral gastroenteritis. CT scan was consistent with this. Feels better after Zofran and Phenergan. Tolerating p.o. without difficulty. He is very well-appearing, nontoxic. Afebrile. Will prescribe Phenergan for home and have him follow-up closely with his doctor. Abdomen is soft, nontender nondistended on serial exam patient counseled regarding signs and symptoms for which I believe and urgent re-evaluation would be necessary. Patient with good understanding of and agreement to plan and is comfortable going home at this time This document was made in part using voice recognition software. While efforts are made to proofread this document, sound alike and grammatical errors may occur. Departure - Departure Disposition: 01 Home, Self Care Clinical Impression: Viral gastroenteritis Vomiting Qualifiers: Vomiting type: unspecified Vomiting Intractability: non-intractable Nausea presence: with nausea Qualified Code(s): R11.2 - Nausea with vomiting, unspecified Diarrhea Qualifiers: Diarrhea type: unspecified type Qualified Code(s): R19.7 - Diarrhea, unspecified Condition: Good Instructions: ED Gastroenteritis Viral Follow-Up: Brent Colon MD [Primary Care Provider] - Within 3 Days Prescriptions: Promethazine [Phenergan] 25 mg PO Q6H PRN #10 tab PRN Reason: Nausea / Vomiting Promethazine Supp [Phenergan Supp] 25 mg VA Q6H PRN #10 supp PRN Reason: Nausea / Vomiting Comments: Return if you worsen. Drink plenty of fluids at home. This should improve over the next 2 days. Discharge Date/Time: 09/06/18 03:08
[2018-09-06 00:01] LABS: BASOPHILS # (AUTO) 0.1 10^3/uL (0.0-0.1); BASOPHILS % (AUTO) 0.6 %; EOSINOPHILS # (AUTO) 0.1 10^3/uL (0.0-0.7); EOSINOPHILS % (AUTO) 1.1 %; HGB - HEMOGLOBIN 14.7 g/dL (14.0-18.0); LYMPHOCYTES # (AUTO) 1.2 10^3/uL (1.5-3.5); LYMPHOCYTES % (AUTO) 13.2 %; MEAN CORPUSCULAR HEMOGLOBIN 30.2 pg (27.0-31.0); MEAN CORPUSCULAR HGB CONC 33.2 g/dL (32.0-36.0); MEAN CORPUSCULAR VOLUME 90.8 fL (80.0-94.0); MEAN PLATELET VOLUME 6.8 fL (7.4-11.4); MONOCYTES # (AUTO) 1.1 10^3/uL (0.0-1.0); MONOCYTES % (AUTO) 11.9 %; NEUTROPHILS # (AUTO) 6.8 10^3/uL (1.5-6.6); NEUTROPHILS % (AUTO) 73.2 %; PLT - PLATELET COUNT 227 10^3/uL (130-450); RED BLOOD COUNT 4.88 10^6/uL (4.70-6.10); RED CELL DISTRIBUTION WIDTH 15.5 % (12.0-15.0); WHITE BLOOD COUNT 9.4 x10^3/uL (4.8-10.8)
[2018-09-06] MEDS ORDERED: methylPREDNISolone SUCCINATE 125 MG/2 ML VIAL IVP STA (00:06)
[2018-09-06] MEDS ORDERED: diphenhydrAMINE INJ 50 MG/ML VIAL IVP STA (00:06)
[2018-09-06 00:12] LABS: ALBUMIN 4.1 g/dL (3.2-5.5); ALBUMIN/GLOBULIN RATIO 1.3 (1.0-2.2); BILIRUBIN,TOTAL 1.1 mg/dL (0.2-1.0); CALCIUM 10.8 mg/dL (8.5-10.3); CREATININE 0.9 mg/dL (0.6-1.2); TOTAL PROTEIN 7.3 g/dL (6.7-8.2)
[2018-09-06] MEDS ORDERED: IOVERSOL 320 100 ML VIAL IVP ONE ×2 (00:12→00:52)
[2018-09-06 00:15] LABS: VBG BASE EXCESS 0.6 mmol/L (-2 - +2); VBG PCO2 40.8 mmHg (41-51); VBG PH 7.41 (7.31-7.41); VBG PO2 47.6 mmHg (25-47); VBG TOTAL CO2 26.5 mmol/L (24-29)
--- NOTE | 2018-09-06 01:07 | CT Report ---
Reason: diffuse abd pain, vomiting, diarrhea Procedure Date: 09/06/2018 Accession Number: [id number] / [id number] Procedure: CT - Abdomen/Pelvis W/ CPT Code: FULL RESULT: EXAM: CT ABDOMEN AND PELVIS EXAM DATE: 09/06/2018 12:50 AM. CLINICAL HISTORY: Diffuse abdominal pain, vomiting, diarrhea. COMPARISONS: ABDOMEN/PELVIS W/O 07/25/2018 11:14 PM. TECHNIQUE: Routine helical CT imaging was performed through the abdomen and pelvis. IV contrast: Yes. Enteric contrast: No. Reconstructions: Coronal and sagittal. In accordance with CT protocol optimization, one or more of the following dose reduction techniques were utilized for this exam: automated exposure control, adjustment of mA and/or KV based on patient size, or use of iterative reconstructive technique. FINDINGS: Lung Bases: Post TAVR. Liver: Mildly fatty. No suspicious masses. Gallbladder/Bile Ducts: Unremarkable post-cholecystectomy. Spleen: Unremarkable. Pancreas: Unremarkable. Adrenal Glands: Unremarkable. Kidneys: Small nonobstructing left renal pelvic and ureteral stones measuring up to 6 x 3 mm in the mid to distal left ureter. Additional several nonobstructing left renal stones measuring up to 9 mm. Small cysts bilaterally. No suspicious masses or right hydronephrosis. Peritoneal Cavity/Bowel: Diffuse mildly distended small bowel with adjacent mesenteric edema. No discrete transition seen. Mild mesenteric edema and free fluid. Pelvic Organs: Small layering bladder stones again noted. Prostate mildly enlarged. Vasculature: No aneurysms or other significant abnormality. Bones: No aggressive appearing or acute abnormality. Chronic degenerative changes in the spine. Other: Previous periumbilical anterior abdominal hernia repair. There is a small fat-containing hernia to the left of the mesh repair. No bowel involvement. Increased edema at the umbilicus.. IMPRESSION: 1. Diffuse mild small bowel distention with adjacent mesenteric edema and mild free fluid. No bowel wall thickening or discrete transition seen. Suspect gastroenteritis versus early/partial obstruction. 2. Small nonobstructing left renal pelvic and ureteral stones measuring up to 6 x 3 mm in the mid to distal left ureter. Additional several nonobstructing left renal stones measuring up to 9 mm. 3. Fatty liver. 4. Post-cholecystectomy. 5. Small layering urinary bladder stones again noted. 6. Enlarged prostate. 7. Subcutaneous edema at the umbilicus and correlation with clinical exam suggested to exclude cellulitis. [facility]
[2018-09-06] MEDS ORDERED: KETOROLAC 30 MG/ML VIAL IVP STA (01:19)
[2018-09-06] MEDS ORDERED: PROMETHAZINE INJ 25 MG in SODIUM CHLORIDE 0.9% 50 ML IV STA (01:20)
[2018-09-06 02:37] VITALS: BP 106/79
== END 2018-09-06 03:08 | disposition home or self-care (01) ==
LOC: ED 23:27
DX: A08.4 Viral intestinal infection, unspecified (principal); C61 Malignant neoplasm of prostate; C79.9 Secondary malignant neoplasm of unspecified site; I10 Essential (primary) hypertension; E11.51 Type 2 diabetes mellitus with diabetic peripheral angiopathy without gangrene; Z79.4 Long term (current) use of insulin; K42.9 Umbilical hernia without obstruction or gangrene; N20.2 Calculus of kidney with calculus of ureter; N21.0 Calculus in bladder; K76.0 Fatty (change of) liver, not elsewhere classified; F03.90 Unspecified dementia, unspecified severity, without behavioral disturbance, psychotic disturbance, mood disturbance, and anxiety; I48.91 Unspecified atrial fibrillation; Z95.2 Presence of prosthetic heart valve; Z79.02 Long term (current) use of antithrombotics/antiplatelets; Z79.82 Long term (current) use of aspirin; I25.10 Atherosclerotic heart disease of native coronary artery without angina pectoris; Z95.5 Presence of coronary angioplasty implant and graft
CPT/HCPCS: 36415; 74177; 80053; 82009; 82803; 83690; 85025; 96365; 96375; 99284; J1200; J7040; Q9967

== ENCOUNTER 2018-09-06 13:56 | Outpatient (CLI) | payer MEDICARE ==
--- NOTE | 2018-09-06 19:46 | CONSULTATION NOTE ---
Palliative Care Follow Up - Referral Referring Provider: Dr. Al Mensah Time of Visit: [id number] Referral setting: [facility] [place] Referral Reason: Dementia with behavioral disturbances/Prostate Ca/abd pain - Information Sources Records reviewed: Previous records reviewed History/Review of Systems obtained from: Patient, Family ( Amber providing most of information) Exam limitations: Clinical condition (patient with significant STM issues) - History of Present Illness Update Brief HPI Update: This is a very complex 68-year-old gentleman with multiple health issues, most acutely presented yesterday 09/05 at the ED with severe abdominal pain, nausea and vomiting, was diagnosed with a viral gastroenteritis. Patient's nausea has improved over the last 24 hours, but severe abdominal spasms and pain have not. He did have a CT scan of the abdomen that did show small nonobstructing left renal pelvic and ureteral stones measuring up to 6 x 3 mm in the mid to distal left ureter and several nonobstructing left renal stones measuring up to 9 mm. He did have diffuse mild bowel small bowel distention with adjacent mesenteric edema and subcutaneous edema and umbilicus. This does correlate with a small reducible umbilical hernia. He has had several surgeries including mesh in that area. Patient abdomen is rounded and distended. This is his norm but it does appear more taut today. Patient does have underlying ongoing diarrhea, this is thought to be results of his radiation to his prostate cancer. Patient has been treated for kidney stones in the recent past, though the pain does not correlate as the discomfort is on the right, and the stones are on the left. Patient also has underlying seizure disorder, progressive dementia with increasing behavioral issues. He has had frequent falls, some requiring ED evaluations. There is no rhyme nor reason as far as precipitating factors, attributes to balance and impulsivity. Patient is here for [id number]-wq-[id number] for home health evaluation, patient does have upper and lower extremity muscle wasting noted from last visit. He is having more difficulty tracking the conversation, short-term memory is much more pronounced as far as deficits, patient is actually aware of his cognitive decline which is quite frustrating for him. reports patient is quite argumentative, can be verbally abusive to those around him and his frustration, and spends most of his time watching TV or in the recliner. It does appear he might be having some sundowning as far as his cycle of behaviors as well. also reports a couple weeks ago patient had an episode where he had severe pain in his head, went to bed. For 2-3 days was somewhat out of it, and assumes it was a TIA or another mini stroke. Patient does have metastatic prostate cancer post treatment continue to receive androgen suppression. He has had a TA VR and stent placement for aortic stenosis, with complication of a bleed and most recent likely stroke. He has had ureteral stent, intermittent residual hematuria. He has complicated diabetes, chronic pain syndrome related to severe disc disease, underlying depression, anxiety, chronic diarrhea, and functional cognitive decline Social History - Living Situation Living arrangement: At home Living Situation: With spouse/s.o., With family Support System: primary caregiver, is presenting with significant caregiver fatigue. She does oversee his care, but patient can be quite belligerent and no insight at times into his confusion. Her daughter and grandson as well as her partner and her son are currently living at the house. This is helpful as far as increased support but he continues at times to lash out, does not have much insight into his behaviors on others. Medications/Allergies - Medications Home Medications: Ambulatory Orders Medication Instructions Recorded Confirmed Allopurinol 100 mg PO DAILY 07/28/16 09/05/18 Furosemide 40 mg PO DAILY 07/28/16 09/05/18 Tamsulosin [Flomax] 0.4 mg PO DAILY 07/28/16 09/05/18 Escitalopram [Lexapro] 20 mg PO DAILY 06/03/17 09/05/18 Nitroglycerin [Nitrostat] 0.4 mg SL Q5M PRN tablet 06/03/17 09/05/18 Pantoprazole Sodium 40 mg PO QDAC 06/03/17 09/05/18 Potassium Chloride [Klor-Con M20] 20 meq PO TID 06/03/17 09/05/18 lamoTRIgine [Lamictal] 350 mg PO BID 06/03/17 09/05/18 Diphenoxylate/Atropine [Lomotil] 1 - 2 tab PO Q6HR PRN 06/07/17 09/05/18 HYDROcod/ACETAM 5/325 [[place] 5/325] 1 - 2 each PO Q6H PRN MDD NTE 8 07/31/17 09/05/18 tabs Aspirin 81 mg PO DAILY 10/21/17 09/05/18 Clopidogrel [Plavix] 75 mg PO DAILY 10/21/17 09/05/18 Insulin Glargine [Lantus Solostar] 60 - 80 units SUBQ DAILY 10/21/17 09/05/18 Promethazine [Phenergan] 25 - 50 mg PO Q6H PRN #10 tab 11/27/17 09/05/18 Ondansetron Odt [Zofran] 4 mg TL Q6H PRN #20 tablet 03/19/18 09/05/18 Losartan Potassium [Cozaar] 50 mg ORAL DAILY 04/19/18 09/05/18 Promethazine Supp [Phenergan Supp] 25 mg SD Q6H PRN #10 supp 09/06/18 Promethazine [Phenergan] 25 mg PO Q6H PRN #10 tab 09/06/18 - Allergies Allergies/Adverse Reactions: Allergies Allergy/AdvReac Type Severity Reaction Status Date / Time acetaminophen [From Percocet] Allergy Unknown Verified 09/05/18 23:36 adhesive tape Allergy Unknown Verified 09/05/18 23:36 atorvastatin calcium * Allergy Hallucinati Verified 09/05/18 23:36 [From Lipitor] ons ezetimibe [From Zetia] Allergy Respiratory Verified 09/05/18 23:36 fenofibrate Allergy Unknown Verified 09/05/18 23:36 Iodinated Contrast- Oral and Allergy Hives Verified 09/05/18 23:36 IV Dye [Iodinated Contrast Media - IV Dye] meperidine [From Demerol] Allergy Unknown Verified 09/05/18 23:36 methadone Allergy Unknown Verified 09/05/18 23:36 niacin Allergy Rash Verified 09/05/18 23:36 oxycodone [From Percocet] Allergy Unknown Verified 09/05/18 23:36 Penicillins Allergy Respiratory Verified 09/05/18 23:36 Hkbjnga-Mxk-Trj Reductase Allergy Unknown Verified 09/05/18 23:36 Inhibitor venom-honey bee Allergy Respiratory Verified 09/05/18 23:36 [bee venom (honey bee)] Review of Systems - Constitutional Constitutional: reports: Fatigue, Weakness, Poor appetite - Eyes Eyes: reports: Vision loss - Ears, Nose & Throat Ears, Nose & Throat: reports: Vertigo, Dry mouth - Cardiovascular Cardiovascular: reports: Lightheadedness, Exertional dyspnea, Decr. exercise tolerance. denies: Chest pain - Respiratory Respiratory: reports: SOB with exertion. denies: SOB at rest - Gastrointestinal Gastrointestinal: reports: Abdominal pain, Nausea, Vomiting (none since yesterday), Other (fluctuating appetite) - Genitourinary Genitourinary: reports: Frequency, Incontinence (intermittent) - Musculoskeletal Musculoskeletal: reports: Muscle pain, Back pain, Muscle aches, Stiffness, Limited range of motion, Muscle weakness, Assistive devices (uses 4WW for ambulation), Transfer issues (when patient falls; very difficult to get up;), Other (with recent falls c/o pain right ribs/sternum area) - Integumentary Integumentary: reports: Rash (on feet), Dryness - Neurological Neurological: reports: General weakness, Memory problems, Seizures - Psychiatric Psychiatric: reports: Depression, Anxiety, Delusions, Aggitation - Endocrine Endocrine: reports: Diabetes type 2 - All Other Systems All Other Systems: reports: Other (patient with poor recall; relying on for history) Physical Exam - Vital Signs Temperature: 36.7 C Pulse Rate: 93 Respiratory Rate: 18 O2 Saturation: 95 (ra @ rest) Blood Pressure: 126/67 - Physical Exam General Appearance: positive: Mild distress, Anxious Eyes Bilateral: positive: Normal inspection ENT: positive: No signs of dehydration, Other (halitosis) Neck: positive: Trachea midline, Other (thickened neck; limited ROM) Cardiovascular: positive: Regular rate & rhythm Respiratory: positive: Diminished in bases. negative: Wheezes, Rales, Rhonchi Abdomen: positive: Abnml bowel sounds (diminisheed), Tenderness, Guarding, Distended, Taut, Obese Skin: positive: Pallor, Rash (right foot about 2 x 3 cm area; dried with scabbing; appears to be tinea; smaller patch on left; fungal nails;) Extremities: positive: No pedal edema Neurologic/Psychiatric: positive: Mood/affect nml, Disoriented to time, Weakness, Flat affect Palliative Care - POLST Patient has POLST: Yes POLST Status: DNR, Selective Treatment Pain: Location (Patient also since radiation, has experienced low-grade persistent pain in his lower pelvic area, what is different it is radiating up through his umbilicus.), Comment (Baseline pain related to severe osteoarthritis and joint discomfort, has not escalated, is managed with hydrocodone 5 mg / 325 mg averaging about 4-day. Patient has intermittent acute pain secondary to frequent falls, currently located in his right rib area as well as his sternum. Acute pain with intermittent abdominal cramping lasting for 3-5 seconds of an intensity of 9 out of 10. Reports this is leading up, but did experience it at least twice during the visit.) Tiredness/Fatigue: Severe (7-10) Drowsiness/Sedation: Severe (7-10) Nausea: Moderate (4-6) Depression: Mild (1-3) Anxiety: Mild (1-3) Dyspnea: None Anorexia: Severe (7-10) Sleep: Variable sleep pattern (patient sometimes wanders at night) Feelings of wellbeing/Perceived Quality of Life: Poor, Worsening Performance Status: Patient ambulating short distances, or having increased difficulty with assisting him with bathing. He has had ongoing increased falls, reports poor activity tolerance. Hoping home health will be able to help him with safety, equipment, as well as some strengthening. Patient does need assistance with dressing. herself has limitations related to her pain and health, has become more difficult in meeting his ongoing ADLs particularly in light of his "anger issues" and dementia. - Palliative Care Discussion: Patient is feeling quite discouraged by his current quality of life, he reports he just watches TV and plays video games. He still has his Bible study though does report his depression is fluctuating. His quality of life continues to decline, His is significantly concerned. We did discuss at length though he has multiple comorbidities, the most dangerous thing at this point in time is a sequela from a fall. She does feel if he had any further life-threatening or Significant health issues given their conversations in the past, and his current quality of life, they would be at a place to transition to comfort measures. Currently though given their financial stressors they still do not have insurance, patient's ongoing cognitive decline and behavioral issues, and just his increasing needs she does experience significant caregiver fatigue and distress. Home health to start, was put on hold related to above stressors. Results - Lab Results Lab results reviewed: Yes Impression and Recommendations - Palliative Care Impression: This is a 68-year-old gentleman who continues to decline both cognitively and f unctionally. He has a long list of comorbidities adding to his complexity, high symptom burden, as well as multiple acute interactions with the ED. Palliative care providing support for pain and symptom management and anticipatory guidance, as well as coordination of care. Recommendations/Counseling Done: 1. Acute abdominal pain. Does appear to be abating, patient has had no further nausea. Pain is on the right side, though stones per are new on the left. Agreed will send scan to urologist Ralph Thomas, she will make an appointment if it continues to worsen. Patient advised to return to the ED if acute symptoms do not continue to improve. 2. Generalized weakness. Patient does have upper and lower extremity wasting, ongoing difficulties with balance, and functional decline. Call the home health, misunderstanding as far as did not answer phone, does not have a voicemail she does not recognize home health number. Contact information for home health and for given to coordinate services. 3. Acute on chronic pain. Patient is responding to hydrocodone, is using appropriately, prescription given 480 tabs. 4. Chronic diarrhea. Patient well managed on Lomotil 2 tabs twice daily, prescription provided. 5. Dementia with behavioral disturbances. Patient may benefit from low-dose antipsychotic to manage sundowning and increasing behaviors. Recommended follow-up with neurologist, secondary to patient's complex issues and seizures would want input from his specialists. 6. Advanced care planning. Patient with multiple comorbidities, high risk for sequela of a fall, and ongoing frequent hospitalizations and ED visits. Patient's quality of life continues to deteriorate, presents with caregiver fatigue, discussion regarding ongoing goals of care provided with . Patient has SUNNY ST in place as DNA R, selected treatments, conversation regarding considering transitioning more to comfort focused care. Palliative care to continue to provide support and coordination of care in this complex patient and complex situation Yweh-oi-nylq for home health. It is a taxing considerable effort for the patient to leave the home secondary to his difficulty with walking, increased fatigue, and functional and cognitive decline. Patient would benefit from physical therapy for home exercise program, for endurance, balance training, equipment recommendations and home safety. Occupational therapy for bathing set up, ADL management, and dressing as well as home health aide for bathing and [employer] for long-term/short-term issues regarding insurance and [place] P[employer] application Time Spent: 60 minutes was given 50% of this done in counseling regarding pain and symptom management, anticipatory guidance, review of dgej-qe-dcvo for home health, and opioid counseling and prescriptions. [facility] home health
== END 2018-09-06 13:57 | disposition home or self-care (01) ==
LOC: PC 13:56
PROVIDERS: ATTEND Nurse Practitioner Adult Health
DX: Z51.5 Encounter for palliative care (principal); G89.4 Chronic pain syndrome; R10.2 Pelvic and perineal pain; R53.1 Weakness; K52.9 Noninfective gastroenteritis and colitis, unspecified; F03.91 Unspecified dementia, unspecified severity, with behavioral disturbance; C61 Malignant neoplasm of prostate; C77.5 Secondary and unspecified malignant neoplasm of intrapelvic lymph nodes; E11.42 Type 2 diabetes mellitus with diabetic polyneuropathy; G40.909 Epilepsy, unspecified, not intractable, without status epilepticus; I10 Essential (primary) hypertension; F32.9 Major depressive disorder, single episode, unspecified; F41.9 Anxiety disorder, unspecified; M19.90 Unspecified osteoarthritis, unspecified site; N20.0 Calculus of kidney; R35.0 Frequency of micturition; R32 Unspecified urinary incontinence; H54.7 Unspecified visual loss; Z66 Do not resuscitate; Z79.891 Long term (current) use of opiate analgesic; Z79.4 Long term (current) use of insulin; R26.2 Difficulty in walking, not elsewhere classified; Z91.81 History of falling; Z87.442 Personal history of urinary calculi; Z95.2 Presence of prosthetic heart valve; Z96.89 Presence of other specified functional implants
CPT/HCPCS: 99215

== ENCOUNTER 2018-09-28 08:00 | Outpatient (CLI) | payer MEDICARE ==
[2018-09-28 18:54] LABS: BASOPHILS % (AUTO) 0.3 %; EOSINOPHILS % (AUTO) 0.3 %; HGB - HEMOGLOBIN 12.2 g/dL (14.0-18.0); LYMPHOCYTES # (AUTO) 0.7 10^3/uL (1.5-3.5); LYMPHOCYTES % (AUTO) 11.1 %; MEAN CORPUSCULAR HGB CONC 32.8 g/dL (32.0-36.0); MEAN CORPUSCULAR VOLUME 91.5 fL (80.0-94.0); MONOCYTES # (AUTO) 0.8 10^3/uL (0.0-1.0); MONOCYTES % (AUTO) 12.1 %; NEUTROPHILS # (AUTO) 4.9 10^3/uL (1.5-6.6); NEUTROPHILS % (AUTO) 76.2 %; PLT - PLATELET COUNT 114 10^3/uL (130-450); RED BLOOD COUNT 4.07 10^6/uL (4.70-6.10); RED CELL DISTRIBUTION WIDTH 15.3 % (12.0-15.0); WHITE BLOOD COUNT 6.4 x10^3/uL (4.8-10.8)
[2018-09-28 19:14] LABS: ALBUMIN 3.5 g/dL (3.2-5.5); CALCIUM 9.8 mg/dL (8.5-10.3); TOTAL PROTEIN 6.9 g/dL (6.7-8.2)
== END 2018-09-28 23:59 | disposition home or self-care (01) ==
LOC: LAB.WCP 08:00
PROVIDERS: ATTEND Nurse Practitioner
DX: E11.49 Type 2 diabetes mellitus with other diabetic neurological complication (principal); R19.7 Diarrhea, unspecified; R41.0 Disorientation, unspecified
CPT/HCPCS: 36415; 80053; 85025

== ENCOUNTER 2018-10-04 21:33 | Outpatient (CLI) | payer MEDICARE | END 2018-10-04 21:34 | disposition critical access hospital (66) | LOC: EMS 21:33 | PROVIDERS: ATTEND Surgery | DX: R40.20 Unspecified coma (principal) | CPT/HCPCS: A0425; A0429 ==

== ENCOUNTER 2018-10-04 21:52 | Emergency (ER) | payer MEDICARE ==
--- NOTE | 2018-10-04 22:14 | ED Physician Documentation ---
PD HPI Fall - Stated complaint Stated Complaint: GLF - Chief complaint Chief Complaint: Neuro - History obtained from History obtained from: Family, EMS - History of Present Illness Fall distance: Standing position Where injury occurred: Home Timing - onset: Today Injury(ies) location: Head, Right Upper Extremity, Right Lower Extremity - Additional information Additional information: 68-year-old male with a history of dementia who lives with family had an unwitnessed fall. The patient complains of head pain, Right elbow pain and right knee pain. The history is limited from the patient secondary to his dementia. The patient does deny any chest, abdomen injury. Review of Systems Unable to obtain: Dementia PD PAST MEDICAL HISTORY - Past Medical History Cardiovascular: Hypertension, High cholesterol, Coronary artery disease, Peripheral Vascular Disease, Angina, HI, Atrial fibrillation, Valve disorder Respiratory: Shortness of breath, Other Neuro: Dementia, Seizure disorder Endocrine/Autoimmune: Type 2 diabetes GI: GERD : Incontinence, Kidney stones, Other HEENT: Glaucoma, Other Psych: Anxiety Musculoskeletal: Osteoarthritis, Gout, Chronic back pain Derm: Other - Past Surgical History Past Surgical History: Yes General: Cholecystectomy, Appendectomy Ortho: Knee replacement, Rotator cuff repair, Spine surgery, Other Cardiovascular: Coronary stent, Valve replacement Derm: Skin cancer surgery - Present Medications Home Medications: Ambulatory Orders Medication Instructions Recorded Confirmed Allopurinol 100 mg PO DAILY 07/28/16 10/04/18 Furosemide 40 mg PO DAILY 07/28/16 10/04/18 Tamsulosin [Flomax] 0.4 mg PO DAILY 07/28/16 10/04/18 Escitalopram [Lexapro] 20 mg PO DAILY 06/03/17 10/04/18 Nitroglycerin [Nitrostat] 0.4 mg SL Q5M PRN tablet 06/03/17 10/04/18 Pantoprazole Sodium 40 mg PO QDAC 06/03/17 10/04/18 Potassium Chloride [Klor-Con M20] 20 meq PO TID 06/03/17 10/04/18 lamoTRIgine [Lamictal] 350 mg PO BID 06/03/17 10/04/18 Diphenoxylate/Atropine [Lomotil] 1 - 2 tab PO Q6HR PRN 06/07/17 10/04/18 HYDROcod/ACETAM 5/325 [[place] 5/325] 1 - 2 each PO Q6H PRN MDD NTE 8 07/31/17 10/04/18 tabs Aspirin 81 mg PO DAILY 10/21/17 10/04/18 Clopidogrel [Plavix] 75 mg PO DAILY 10/21/17 10/04/18 Insulin Glargine [Lantus Solostar] 60 - 80 units SUBQ DAILY 10/21/17 10/04/18 Promethazine [Phenergan] 25 - 50 mg PO Q6H PRN #10 tab 11/27/17 09/05/18 Losartan Potassium [Cozaar] 50 mg ORAL DAILY 04/19/18 10/04/18 Diphenoxylate/Atropine [Lomotil] 2 tab PO BID 10/04/18 10/04/18 - Allergies Allergies/Adverse Reactions: Allergies Allergy/AdvReac Type Severity Reaction Status Date / Time acetaminophen [From Percocet] Allergy Unknown Verified 10/04/18 22:22 adhesive tape Allergy Unknown Verified 10/04/18 22:22 atorvastatin calcium * Allergy Hallucinati Verified 10/04/18 22:22 [From Lipitor] ons ezetimibe [From Zetia] Allergy Respiratory Verified 10/04/18 22:22 fenofibrate Allergy Unknown Verified 10/04/18 22:22 Iodinated Contrast- Oral and Allergy Hives Verified 10/04/18 22:22 IV Dye [Iodinated Contrast Media - IV Dye] meperidine [From Demerol] Allergy Unknown Verified 10/04/18 22:22 methadone Allergy Unknown Verified 10/04/18 22:22 niacin Allergy Rash Verified 10/04/18 22:22 oxycodone [From Percocet] Allergy Unknown Verified 10/04/18 22:22 Penicillins Allergy Respiratory Verified 10/04/18 22:22 Njzivlm-Jea-Aev Reductase Allergy Unknown Verified 10/04/18 22:22 Inhibitor venom-honey bee Allergy Respiratory Verified 10/04/18 22:22 [bee venom (honey bee)] - Social History Does the pt smoke?: No Smoking Status: Never smoker Does the pt drink ETOH?: No Does the pt have substance abuse?: No - Immunizations Immunizations are current?: Yes - POLST Patient has POLST: Yes PD ED PE NORMAL - General General: Other (The patient is alert, confused but answering questions) - HEENT HEENT: PERRL, EOMI, Ears normal - Neck Neck: Other (The cervical spine is unable to be assessed Using the Nexus criteria secondary to the patient's dementia and age so imaging will be required) - Cardiac Cardiac: RRR, Strong equal pulses - Respiratory Respiratory: No respiratory distress, Clear bilaterally - Abdomen Abdomen: Soft, Non tender - Derm Derm: Normal color - Extremities Extremities: No deformity, Other (The patient has tenderness of the right elbow and right knee with some mild contusion. The patient has no tenderness of the bilateral shoulders, bilateral wrist, bilateral hands has active range of motion of the bilateral hips and ankles.) - Neuro Neuro: Other (The patient's alert, cooperative moving all 4 extremity and appears to be at his neurologic baseline) PD ED PE EXPANDED - HEENT HEENT: Head injury, PERRL, Pupils unequal, EOMI, Ears normal Results - Vitals Vitals: Vital Signs - 24 hr 10/04/18 10/04/18 10/04/18 21:53 21:59 22:51 Temperature 37 C Heart Rate 86 84 81 Respiratory 16 20 23 Rate Blood Pressure 128/63 143/80 H 137/80 H O2 Saturation 93 90 L 94 10/04/18 10/04/18 23:00 23:15 Temperature Heart Rate 82 20 L Respiratory 22 22 Rate Blood Pressure 171/87 H O2 Saturation 95 98 Oxygen O2 Source Room air - Rads (name of study) CT head/neck Radiology: Final report received, See rad report XR elbow, knee, pelvis Radiology: Final report received, See rad report PD MEDICAL DECISION MAKING - ED course ED course: No acute injury, the patient appears appropriate for discharge and ongoing outpatient management. The patient will return to the emergency department immediately for any worsening or any concerns Departure - Departure Disposition: 01 Home, Self Care Clinical Impression: Closed head injury Qualifiers: Encounter type: initial encounter Qualified Code(s): S09.90XA - Unspecified injury of head, initial encounter Elbow contusion Qualifiers: Encounter type: initial encounter Laterality: unspecified laterality Qualified Code(s): S50.00XA - Contusion of unspecified elbow, initial encounter Knee contusion Qualifiers: Encounter type: initial encounter Laterality: unspecified laterality Qualified Code(s): S80.00XA - Contusion of unspecified knee, initial encounter Fall Qualifiers: Encounter type: initial encounter Qualified Code(s): W19.XXXA - Unspecified fall, initial encounter Condition: Good Instructions: ED Head Injury Closed, ED Contusion Elbow Ch Follow-Up: Brent Colon MD [Primary Care Provider] - Within 1 week Comments: Please return to the emergency department for worsening symptoms or any concerns
--- NOTE | 2018-10-04 22:35 | CT Report ---
Reason: fall, head injury, dementia Procedure Date: 10/04/2018 Accession Number: [id number] / [id number] Procedure: CT - Head W/O CPT Code: FULL RESULT: EXAM: CT HEAD EXAM DATE: 10/04/2018 10:10 PM. CLINICAL HISTORY: Fall, head injury, dementia. COMPARISON: CT HEAD W/O 07/25/2018 11:11 PM. TECHNIQUE: Multiaxial CT images were obtained from the foramen magnum to the vertex. Reformats: Sagittal and coronal. IV contrast: None. In accordance with CT protocol optimization, one or more of the following dose reduction techniques were utilized for this exam: automated exposure control, adjustment of mA and/or KV based on patient size, or use of iterative reconstructive technique. FINDINGS: Parenchyma: No intraparenchymal hemorrhage. No evidence of mass, midline shift, or CT findings of infarction. Juarez-white differentiation is distinct. There is mild chronic microvascular change in the cerebral white matter bilaterally. This is stable. Extraaxial Spaces: There is mild generalized cerebral volume loss. This is stable. No subdural or epidural collections identified. Ventricles: No hydrocephalus. Sinuses and Orbits: Imaged paranasal sinuses, orbits, and mastoids show no significant abnormality. Bones: No evidence of fracture or calvarial defect. Other: None. IMPRESSION: 1. No acute intracranial abnormality. No significant change compared to 07/25/2018. [facility]
--- NOTE | 2018-10-04 22:57 | CT Report ---
Reason: fall, head injury, dementia Procedure Date: 10/04/2018 Accession Number: [id number] / [id number] Procedure: CT - Cervical Spine W/O CPT Code: FULL RESULT: EXAM: CT CERVICAL SPINE WITHOUT CONTRAST. DATE: 10/04/2018 10:28 PM. HISTORY: Fall, head injury, dementia. COMPARISONS: Cervical spine without 06/02/2017 4:49 PM. TECHNIQUE: Thin-section axial images were acquired of the cervical spine without contrast. Post-processing: Coronal and sagittal reformats. Other: None. In accordance with CT protocol optimization, one or more of the following dose reduction techniques were utilized for this exam: automated exposure control, adjustment of mA and/or KV based on patient size, or use of iterative reconstructive technique. FINDINGS: Alignment: Straightening of the cervical spine. No subluxation demonstrated. Bones: No fracture or bone lesion. However, bones are moderate to severely osteopenic. This reduces exam sensitivity and specificity for detection of subtle bony lesions and/or fractures. Interspace Levels/Facets: There is severe multilevel cervical spondylitic change. Other: Lung apices are without significant consolidation. There is no significant paravertebral soft tissue abnormality noted. IMPRESSION: 1. No definite acute bone abnormality. However, bones are moderate to severely osteopenic. This reduces exam sensitivity and specificity for detection of subtle bony lesions and/or fractures. 2. Severe multilevel cervical spondylitic change. [facility]
--- NOTE | 2018-10-04 23:05 | XRAY Report ---
Reason: elbow pain Procedure Date: 10/04/2018 Accession Number: [id number] / [id number] Procedure: XR - Elbow 3 View RT CPT Code: FULL RESULT: EXAM: RIGHT ELBOW RADIOGRAPHY EXAM DATE: 10/04/2018 10:50 PM. CLINICAL HISTORY: Fall. Elbow pain. COMPARISON: None. TECHNIQUE: 3 views. FINDINGS: Bones: No traumatic or destructive bone abnormalities. Large olecranon enthesophyte noted. Joints: Normal. No effusion. No subluxation. Soft Tissues: Soft tissue swelling over the olecranon. IMPRESSION: No acute bony abnormality or joint effusion. [facility]
--- NOTE | 2018-10-04 23:07 | XRAY Report ---
Reason: fall, injury Procedure Date: 10/04/2018 Accession Number: [id number] / [id number] Procedure: XR - Pelvis 1 View CPT Code: FULL RESULT: EXAM: PELVIS RADIOGRAPHY EXAM DATE: 10/04/2018 10:50 PM. CLINICAL HISTORY: Fall. Injury. Pain. COMPARISON: HIP W/PELVIS 2-3V RT 04/27/2017 12:56 PM. TECHNIQUE: 1 view. FINDINGS: Bones: Normal. No fracture or bone lesion. Joints: The visualized hip, pubis symphysis, and sacroiliac joints are preserved. No subluxation. Soft Tissues: Right lower quadrant hernia repair noted. IMPRESSION: No fracture identified. RADIA
--- NOTE | 2018-10-04 23:07 | XRAY Report ---
Reason: GLF right knee pain Procedure Date: 10/04/2018 Accession Number: [id number] / [id number] Procedure: XR - Knee 2 View RT CPT Code: FULL RESULT: EXAM: RIGHT KNEE RADIOGRAPHY EXAM DATE: 10/04/2018 10:53 PM. CLINICAL HISTORY: Fall. Right knee pain. COMPARISON: KNEE 2 VIEW RT 03/19/2018 9:35 PM. TECHNIQUE: 2 views. FINDINGS: Bones and Joints: No fractures or bone lesion. A 3 component right knee arthroplasty has been performed. There is expected alignment of components. No unexpected periprosthetic lucency or other evidence of loosening. Soft Tissues: No knee effusion. Persistent soft tissue calcifications anteriorly concerning for loose bodies. IMPRESSION: Expected appearance of right knee arthroplasty, with no sign of acute bony abnormality or joint effusion. RADIA
--- NOTE | 2018-10-04 23:08 | XRAY Report ---
Reason: fall, head injury, dementia Procedure Date: 10/04/2018 Accession Number: [id number] / [id number] Procedure: XR - Chest 1 View X-Ray CPT Code: 69028 FULL RESULT: EXAM: CHEST RADIOGRAPHY EXAM DATE: 10/04/2018 10:50 PM. CLINICAL HISTORY: Fall. Head injury. Dementia. COMPARISON: RIBS W/PA CHEST RT 07/26/2017 2:53 PM. TECHNIQUE: 1 view. FINDINGS: Lungs/Pleura: No focal opacities evident. No pleural effusion. No pneumothorax. Persistent elevation of the right hemidiaphragm. Mediastinum: Within exam limitations, the cardiomediastinal contour is normal. Other: No fractures identified. IMPRESSION: No acute abnormality or interval change. RADIA
[2018-10-04 23:16] VITALS: BP 171/87
== END 2018-10-04 23:30 | disposition home or self-care (01) ==
LOC: EDUNIT# → ED 21:52
DX: S09.90XA Unspecified injury of head, initial encounter (principal); S50.01XA Contusion of right elbow, initial encounter; S80.01XA Contusion of right knee, initial encounter; W18.30XA Fall on same level, unspecified, initial encounter; Y92.009 Unspecified place in unspecified non-institutional (private) residence as the place of occurrence of the external cause; F03.90 Unspecified dementia, unspecified severity, without behavioral disturbance, psychotic disturbance, mood disturbance, and anxiety; I10 Essential (primary) hypertension; E11.51 Type 2 diabetes mellitus with diabetic peripheral angiopathy without gangrene; Z79.4 Long term (current) use of insulin; Z95.2 Presence of prosthetic heart valve; Z79.02 Long term (current) use of antithrombotics/antiplatelets; Z79.82 Long term (current) use of aspirin
CPT/HCPCS: 70450; 71045; 72125; 72170; 99283; 99284

== ENCOUNTER 2018-10-08 12:15 | Outpatient (CLI) | payer MEDICARE, OTHER ==
--- NOTE | 2018-10-08 15:08 | CONSULTATION NOTE ---
Palliative Care Follow Up - Referral Referring Provider: Dr. Al Mensah Time of Visit: [id number] Referral setting: Home (Patient has had an acute change in condition, patient currently bedbound. It is a taxing considerable effort for patient to leave the home.) Referral Reason: Acute Stroke/FTT/Seizure Disorder/Acute on Chronic Pain - Information Sources Records reviewed: Previous records reviewed History/Review of Systems obtained from: Patient, Family ( Amber provided most of the information; supplemented by Son Rashaad) Exam limitations: Clinical condition (patient fluctuating awareness through out visit;) - History of Present Illness Update Brief HPI Update: This is a very complex 68-year-old gentleman with multiple health issues, has had us significant deterioration over the last couple weeks, with almost daily falls, increasing impulsivity and confusion, had a severe injury fall on 10 04 with most likely fracture of his ribs, severe elbow contusion currently swollen about size of a golf ball, knee contusion swelling is improving as well as head injury. Patient admitted recovering slowly, but with severe pain, saw his primary care on 10/06. Concerns continue to patient's poor health, and patient appeared to have some timing of the event on the night of Friday 10/06. He was unable to talk, communicate with family, at that point started to list to the right, presented with severe confusion, difficulty reorienting, following directions, was glassy eyed. She and her son were up all night with him, worried that this was his time to "check out". Patient has had very little intake over the last several days, he did kind of perked up yesterday and had a hamburger, though has been mostly complaining of not being hungry. He has fluctuating mental status, is a 2 person lift to the wheelchair, they have done this a couple times to get him to the bathroom. They are awaiting a delivery of a commode. He presents today as coming in and out of awareness, warm to touch, and appears to be having frequent repeating right-sided tremors and almost like absent seizures. Patient does roll back his head, becomes glassy eyed, and unable to respond verbally for several minutes at a time. These have become more frequently over the last few days, patient does have a known history of seizures of unknown etiology for which she has been treated with a limited teaching. Patient still has residual severe acute pain in his right ribs, has a lidocaine patch on it very quite tender to touch. Patient has intermittent pain spasms as well, did have a temperature yesterday of 100.9, this a.m. 99.1, he is afebrile at 97.2 with a O2 sat of 92%, his blood pressures low at 102/64 they have held his Lasix today. His blood sugars have been fine with a a.m. blood sugar of 139 today, and 202 yesterday. Patient denies shortness of breath, does not have any cough, his breath sounds are distant and diminished in the bases. He has difficulty taking a deep breath secondary to his most likely fractured ribs. And his fluctuating awareness, he has communicated quite strongly does not want return to the hospital, is ready to be done with this, he has been complaining of poor quality of life for several months now. and son and daughter in agreement, had wanted to initiate hospice referral, palliative care here to evaluate if patient meets hospice criteria and assist with pain and symptom management and defining goals of care Patient's past medical history includes kidney stones most recently, prostate cancer with metastatic disease to lymph nodes status post radiation he is currently on Lupron, is due for shot this week. He has a known underlying seizure disorder, progressive dementia with increasing behavioral issues over this last year. He has had multiple falls, some requiring ED evaluations, mostly attributed to balance, impulsivity, and more recently weakness. He has had a TA VR, stent placement for aortic stenosis, with complication of a bleed and most recently again a previous history of stroke and TIA. 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 Social History - Living Situation Living arrangement: At home Living Situation: With spouse/s.o., With family Support System: Patient and have been 37 years, she reports they did celebrate their anniversary on 09/22. She reports this is the last time he really has been well, has really deteriorated over this last month. They had gone out to dinner. Danielle herself has chronic back pain and with patient's increasing care needs this is been difficult, her son Rashaad and daughter live with her as well as their grandson. They have been of great help over this last few weeks his patient's functional and cognitive status have declined. 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 Medications/Allergies - Medications Home Medications: Ambulatory Orders Medication Instructions Recorded Confirmed Allopurinol 100 mg PO DAILY 07/28/16 10/04/18 Furosemide 40 mg PO .HOLD 07/28/16 10/08/18 Tamsulosin [Flomax] 0.4 mg PO DAILY 07/28/16 10/08/18 Escitalopram [Lexapro] 20 mg PO DAILY 06/03/17 10/08/18 Nitroglycerin [Nitrostat] 0.4 mg SL Q5M PRN tablet 06/03/17 10/08/18 Pantoprazole Sodium 40 mg PO QDAC 06/03/17 10/08/18 Potassium Chloride [Klor-Con M20] 20 meq PO TID 06/03/17 10/08/18 lamoTRIgine [Lamictal] 350 mg PO BID 06/03/17 10/08/18 Diphenoxylate/Atropine [Lomotil] 1 - 2 tab PO Q6HR PRN 06/07/17 10/08/18 HYDROcod/ACETAM 5/325 [[place] 5/325] 1 - 2 each PO Q6H PRN MDD NTE 8 07/31/17 10/08/18 tabs Aspirin 81 mg PO DAILY 10/21/17 10/04/18 Insulin Glargine [Lantus Solostar] 60 - 80 units SUBQ DAILY 10/21/17 10/08/18 Promethazine [Phenergan] 25 - 50 mg PO Q6H PRN #10 tab 11/27/17 10/08/18 Losartan Potassium [Cozaar] 50 mg ORAL DAILY 04/19/18 10/08/18 Diphenoxylate/Atropine [Lomotil] 2 tab PO BID 10/04/18 10/08/18 LORazepam [Ativan] 0.5 mg PO Q4HR PRN 10/08/18 10/08/18 Morphine Sulfate [Morphine Sulf 10 mg PO .Q2 PRN 02/08/19 02/08/19 Oral (Roxanol)] - Allergies Allergies/Adverse Reactions: Allergies Allergy/AdvReac Type Severity Reaction Status Date / Time acetaminophen [From Percocet] Allergy Unknown Verified 10/04/18 22:22 adhesive tape Allergy Unknown Verified 10/04/18 22:22 atorvastatin calcium * Allergy Hallucinati Verified 10/04/18 22:22 [From Lipitor] ons ezetimibe [From Zetia] Allergy Respiratory Verified 10/04/18 22:22 fenofibrate Allergy Unknown Verified 10/04/18 22:22 Iodinated Contrast- Oral and Allergy Hives Verified 10/04/18 22:22 IV Dye [Iodinated Contrast Media - IV Dye] meperidine [From Demerol] Allergy Unknown Verified 10/04/18 22:22 methadone Allergy Unknown Verified 10/04/18 22:22 niacin Allergy Rash Verified 10/04/18 22:22 oxycodone [From Percocet] Allergy Unknown Verified 10/04/18 22:22 Penicillins Allergy Respiratory Verified 10/04/18 22:22 Kioocpq-Szm-Ass Reductase Allergy Unknown Verified 10/04/18 22:22 Inhibitor venom-honey bee Allergy Respiratory Verified 10/04/18 22:22 [bee venom (honey bee)] Review of Systems - Constitutional Constitutional: reports: Fatigue, Fever, Weakness, Poor appetite, Weight loss - Eyes Eyes: reports: Vision loss - Ears, Nose & Throat Ears, Nose & Throat: reports: Hearing loss, Nasal congestion, Dentures - Cardiovascular Cardiovascular: reports: Decr. exercise tolerance. denies: Chest pain - Respiratory Respiratory: reports: SOB with exertion. denies: SOB at rest - Gastrointestinal Gastrointestinal: reports: Black stools (noted positive Hemocult cards in "work up" for anemia;), Nausea, Poor appetite - Genitourinary Genitourinary: reports: Incontinence - Musculoskeletal Musculoskeletal: reports: Muscle pain, Back pain (long-term stenosis/DJD), Muscle aches, Stiffness, Limited range of motion (right leg stiff; increase difficulty with moving attributed to both pain/weakness; diff. bearing weight; max 2 person lift/assist for transfer), Muscle weakness, Joint pain, Joint swelling (right elbow/knee), Transfer issues (mostly bedbound; max assist transfer to wheelchair with two people) - Integumentary Integumentary: reports: Dryness - Neurological Neurological: reports: General weakness, Focal weakness, Dizziness, Numbness, Memory problems, Seizures (patient with frequent sustained tremors/shaking; glassy eyes; unable to talk during episode) - Psychiatric Psychiatric: reports: Depression, Anxiety, Aggitation, Behavior disturbances - Endocrine Endocrine: reports: Diabetes type 2, Intolerance to heat - Hematologic/Lymphatic Hematologic/Lymphatic: reports: Anemia (hgb 12.2 09/28), Bruising - All Other Systems All Other Systems: reports: Reviewed and negative Physical Exam - Vital Signs Temperature: 97.2 C Pulse Rate: 88 Respiratory Rate: 20 O2 Saturation: 92 (ra @ rest) Blood Pressure: 102/64 - Physical Exam General Appearance: positive: Moderate distress, Anxious, Lethargic Eyes Bilateral: positive: PERRL Neck: positive: No JVD, Trachea midline Cardiovascular: positive: Regular rate & rhythm, Systolic murmur Respiratory: positive: No respiratory distress, Diminished throughout. negative: Wheezes Abdomen: positive: Non-tender, Soft, Nml bowel sounds, Taut, Obese Skin: positive: Pallor, Bruising Extremities: positive: No pedal edema, Joint swelling (right elbow; right knee) Neurologic/Psychiatric: positive: Mood/affect nml, Disoriented to place (at times; said he wanted "to go home"), Disoriented to time, Weakness, Flat affect Palliative Care - POLST Patient has POLST: Yes POLST Status: DNR, Comfort Measures Pain: Pain worsening, Location (Patient with chronic pain of stenosis, DJD, multiple joints related to his severe osteoarthritis. Patient with acute pain most likely attributed to right rib fractures, right elbow injury and right knee contusion. Patient presents with intermittent spasms when touched or moved on right side.) Tiredness/Fatigue: Severe (7-10) Drowsiness/Sedation: Moderate (4-6) Nausea: Mild (1-3) Depression: Moderate (4-6) Anxiety: Severe (7-10) Dyspnea: Mild (1-3) Anorexia: Moderate (4-6) Sleep: Variable sleep pattern Constipation: Comment (Patient baseline is usually diarrhea, as a sequela of his radiation has been the working theory. He has been managed with Lomotil scheduled 1-2 tabs twice daily. He has had no bowel movement since Thursday, patient is long-term on potassium secondary to ongoing loss.) Feelings of wellbeing/Perceived Quality of Life: Poor, Worsening Performance Status: Patient has had ongoing functional decline, this is been a combination of balance, deconditioning, frequent falls and acute injuries. Patient also presents with needing increased cueing, but most recent last couple days, patient has been bedbound and less he insists on getting up to wheelchair to the bathroom. They do have a bed carlson, are hoping commode from [employer] will be delivered today. Patient is in a adjustable bed, though is put close to 's bed, is not conducive for caregiving. - Palliative Care Discussion: Patient has been distressed with his decreasing quality of life for several weeks and months now. Most acutely with his most recent falls, and interactions with healthcare system, and increasing dependence. reports patient was very clear on Thursday when able to communicate, he did not want to go to the ED or hospital, he was ready to call it quits. Patient was alert in and out a couple times to visit, reaffirmed goals to focus on comfort, staying at home, not returning to the hospital. Patient did ask family to leave the room. He reports he is scared at some level, is very sad to be leaving his family, and is worried about the effects of his decline on them. He does feel he is going to heaven. This is comforting to him. Patient quite tearful, sharing from his heart. Did have family meeting with , daughter and her boyfriend, and son. All in agreement to support patient's goals to have a comfortable respectful at home, all appropriately grieving and tearful. Discussed the role of hospice, comfort medications, and goals of care. Updated [facility] [address] with decision for comfort measures from selected measures. Results - Lab Results Lab results reviewed: Yes Impression and Recommendations - Palliative Care Impression: This is a 68-year-old gentleman with a long list of multiple comorbidities, has had both ongoing functional and cognitive decline over several months and most acutely over this last week. Patient at high risk for multiple recurrent TIAs and stroke as has a significant history. Description of the event on 10/06, residual deficits, and progressive decline presents as acute stroke with sequlea of right sided weakness, exacerbation of seizure activity, and acute cognitive decline and changes with only slight improvement today. Given patient's goals of care, and continued functional and cognitive decline, and high symptom burden will transition to hospice and hospice support. Recommendations/Counseling Done: 1. Acute on chronic pain, multifactorial in origin. Acute pain most likely right rib fractures, was unable to get to DI for confirmation, secondary to the pain. Patient has been using hydrocodone 2 tabs every 4 hours with only mild to moderate relief. Patient does present with acute spasms as well. Patient has lidocaine patches, instructed to just leave on, and change every 24 hours. We will go ahead and initiate morphine 20 mg/mill at 10 mg every 2 hours for pain. Difficulty locating pharmacy that had in stock, [facility] 20 mils, prescription written son will picker tender.Written instructions reviewed for morphine for both acute pain, and any signs or symptoms of respiratory distress or effort. Patient at high risk for pneumonia. 2. Seizure disorder. Patient does appear to be having frequent and recurrent absence seizures, with tremors, glassy eyes, as he has been able to take his lamotrigine today, but was unable to take meds consistently over the last couple days. Did order lorazepam 0.5 mg tabs, instructed to use for not only symptoms of anxiety or agitation but for symptoms related to seizure activity or progressive distress attributed to this. 3. Medication compliance. Patient has been on and off medications last few days. Simplified list and prioritized medications, with focus on comfort medi cations as priority. Discussed the patient unable to swallow, giving morphine and/or lorazepam buccally. 4. Anxiety. Patient in a moment of lucidity, was able to participate in a goals of care conversation, as well as understood he was declining fairly rapidly. Patient has been restless and with anxiety and agitation, instructed to use the Lorazepam, there has been no sleep in the household for about 3 nights now. 5. Acute stroke with residual deficits. Some improvement, patient able to engage in short conversations, had lost the ability to speak. Patient does have right-sided weakness, compounded by injuries from right to fall. Patient does have fluctuating cognitive status, has not demonstrated choking, though has had significant decrease in intake over the last 48-72 hours. 6. Advanced care planning. Family meeting with patient, , and daughter and boyfriend, there is a 2-year-old grandson in the home as well. As well as son Rashaad. Daughter and Rashaad have had [employer] training, and are able to help with caregiving. [address] completed to reflect goals of care. Discussed still the need for lift assist, if patient has fall, he is very weak and difficult to move. Consult with hospice medical claims manager regarding patient's acute stroke, decline, goals of care, with agreement to accept. Patient most likely with days to weeks. Referral to hospice made, hospice benefit reviewed with family, aware due to the inclement weather, there may be a delay in getting equipment and/or services. Comfort medications provided, with instruction, also instructed what to do at time of if patient passes before hospice admit. Time Spent: 75 minutes with getting 50% of this done in counseling regarding goals of care, instruction on how to take care of patient with high symptom burden and transitioning, anticipatory guidance provided as well as counseling regarding hospice benefit. Coordination of care with hospice team, PCP not an office but will CC on note.
== END 2018-10-08 12:16 | disposition home or self-care (01) ==
LOC: PC 12:15
PROVIDERS: ATTEND Nurse Practitioner Adult Health
DX: Z51.5 Encounter for palliative care (principal); G89.4 Chronic pain syndrome; M48.00 Spinal stenosis, site unspecified; M47.9 Spondylosis, unspecified; M15.9 Polyosteoarthritis, unspecified; S29.9XXD Unspecified injury of thorax, subsequent encounter; S50.01XD Contusion of right elbow, subsequent encounter; S80.01XD Contusion of right knee, subsequent encounter; R25.2 Cramp and spasm; G40.909 Epilepsy, unspecified, not intractable, without status epilepticus; T42.6X6A Underdosing of other antiepileptic and sedative-hypnotic drugs, initial encounter; F41.9 Anxiety disorder, unspecified; I69.351 Hemiplegia and hemiparesis following cerebral infarction affecting right dominant side; I69.318 Other symptoms and signs involving cognitive functions following cerebral infarction; R62.7 Adult failure to thrive; C61 Malignant neoplasm of prostate; C77.5 Secondary and unspecified malignant neoplasm of intrapelvic lymph nodes; E11.42 Type 2 diabetes mellitus with diabetic polyneuropathy; I10 Essential (primary) hypertension; F03.91 Unspecified dementia, unspecified severity, with behavioral disturbance; K52.9 Noninfective gastroenteritis and colitis, unspecified; F32.9 Major depressive disorder, single episode, unspecified; Z91.138 Patient's unintentional underdosing of medication regimen for other reason; Z79.899 Other long term (current) drug therapy; Z79.4 Long term (current) use of insulin; Z95.2 Presence of prosthetic heart valve; Z96.0 Presence of urogenital implants; Z91.81 History of falling; Z74.01 Bed confinement status; Z66 Do not resuscitate
CPT/HCPCS: 99350